=== PATIENT | female | born 1945 | race Caucasian/White ===

== ENCOUNTER → 2017-12-28 13:24 | Outpatient (CLI) | payer MEDICARE, MEDICAID, SELFPAY ==
--- NOTE | 2017-12-28 13:29 | XR_ITS ---
XR DEXA axial skeleton HISTORY: ITS.REASON: OSTEOPENIA ORDERING PHYSICIAN: Ashley Roca MD PATIENT AGE: 72 years COMPARISON: None FINDINGS: The BMD measured at the left femoral neck is 0.676 g/cm squared with a T score of -2.6 . This is considered Osteoporotic according to the World Health Organization criteria. Fracture risk is High. Treatment is advised. L1 L4 density has a T score of -1.9. IMPRESSION: Osteoporosis with high fracture risk. Recommend pharmacologic treatment and follow-up exam in one year
--- NOTE | 2017-12-28 13:39 | CI_ITS ---
Cerebrovascular Exam Indications: 785.9 Bruit. IMPRESSIONS 1. The bilateral vertebral arteries are patent with normal antegrade flow. 2. Study suggests less than 20% stenosis involving the right internal carotid artery and the left internal carotid artery. No change from the study of 17-May-2016. History: Risk factors: Hypertension. Hyperlipidemia. Carotid duplex study. Complete study and Doppler flow study including spectral analysis, color and franks scale imaging. Height: Height: 167.6cm. Height: 66in. Weight: Weight: 89.8kg. Weight: 197.6lb. Body mass index: BMI: 32kg/m^2. Body surface area: BSA: 2.08m^2. Location: Vascular laboratory. Patient status: Outpatient. Tables: Arterial flow: + +--------+--------+ Location V sys V ed + +--------+--------+ Right CCA - proximal 73.1cm/s 25.1cm/s + +--------+--------+ Right CCA - distal 76.2cm/s 21.2cm/s + +--------+--------+ Right ECA 91.9cm/s -------- + +--------+--------+ Right ICA - proximal 51.9cm/s 14.1cm/s + +--------+--------+ Right ICA - mid 115cm/s 27.5cm/s + +--------+--------+ Right ICA - distal 84.9cm/s 29.4cm/s + +--------+--------+ Right vertebral 65.2cm/s -------- + +--------+--------+ Left CCA - proximal 74.6cm/s 24.4cm/s + +--------+--------+ Left CCA - distal 68.4cm/s 21.2cm/s + +--------+--------+ Left ECA 66.8cm/s -------- + +--------+--------+ Left ICA - proximal 55cm/s 15.7cm/s + +--------+--------+ Left ICA - mid 84.9cm/s 25.9cm/s + +--------+--------+ Left ICA - distal 82.5cm/s 29.1cm/s + +--------+--------+ Left vertebral 33.8cm/s -------- + +--------+--------+ Velocity ratios: + + + + + + Right, V sys Right, V ed Left, V sys Left, V ed + + + + + + Max ICA/dist CCA 1.51 1.39 1.24 1.37 + + + + + + (Report amended ) Electronically signed by: Danny Payne [id number]
== END ==
PROVIDERS: Family Provider Family Medicine; PCP Family Medicine; Visit Provider Family Medicine
DX: R09.89 Other specified symptoms and signs involving the circulatory and respiratory systems; M85.89 Other specified disorders of bone density and structure, multiple sites
CPT/HCPCS: 77080; 93880

== ENCOUNTER → 2019-02-05 13:51 | Outpatient (CLI) | payer MEDICARE, MEDICAID, SELFPAY | PROVIDERS: PCP Family Medicine; Visit Provider Family Medicine | DX: I49.9 Cardiac arrhythmia, unspecified (principal) | CPT/HCPCS: 93005; 93225; 93226 ==

== ENCOUNTER → 2019-06-24 15:07 | Outpatient (CLI) | payer MEDICARE, MEDICAID, SELFPAY ==
--- NOTE | 2019-06-24 16:04 | ECG_ITS ---
APPROVED REPORT Exam: Resting ECG HR:77 bpm ECG Measurements Heart Rate 77 AXES LA 144 P 31 QRSd 84 QRS -4 QT 374 T 16 QTc 423 <Conclusion> Sinus rhythm with marked sinus arrhythmia Minimal voltage criteria for LVH, may be normal variant ST abnormality,? lyte effect Electronically signed by : Esequiel Mederos, 06/25/2019 13:50:06
== END ==
PROVIDERS: PCP Family Medicine; Visit Provider Family Medicine
DX: I49.49 Other premature depolarization (principal); I35.1 Nonrheumatic aortic (valve) insufficiency
CPT/HCPCS: 93005; 93306

== ENCOUNTER → 2020-05-10 12:30 | Outpatient (CLI) | payer MEDICARE, MEDICAID, SELFPAY ==
--- NOTE | 2020-05-10 12:50 | XR_ITS ---
PROCEDURE: XR CHEST 2V CLINICAL HISTORY: HX OF PNEUMONIA Follow-up pneumonia COMPARISON: No exams were available for comparison FINDINGS: The cardiomediastinal silhouette and pulmonary vascularity are within normal limits. Patchy infiltrate is present in the left lower lobe and lingula. Increased markings are also present in the right lower lobe and may be due to an area of atelectasis or patchy infiltrate. Upper lobes are clear. No acute bony abnormalities. IMPRESSION: Left lower lobe and lingula pneumonia with mild atelectasis or patchy infiltrate in the right lung base Dictated by: Bakari Hay MD 05/10/2020 14:57 Electronically signed by Bakari Hay MD in [place] 05/10/2020 14:57
== END ==
PROVIDERS: PCP Family Medicine; Visit Provider Family Medicine
DX: Z87.01 Personal history of pneumonia (recurrent) (principal)
CPT/HCPCS: 71046

== ENCOUNTER → 2020-06-09 13:53 | Outpatient (CLI) | payer MEDICARE, MEDICAID, SELFPAY ==
--- NOTE | 2020-06-09 14:02 | XR_ITS ---
PROCEDURE: XR CHEST 2V CLINICAL HISTORY: H/O PNEUMONIA COMPARISON: CR XR CHEST 2V from 05/10/2020 FINDINGS: The cardiomediastinal silhouette and pulmonary vascularity are within normal limits. The lungs are clear without infiltrates, suspicious nodules, or pleural effusions. There are degenerative changes in the thoracic spine with kyphosis IMPRESSION: No change with no acute finding Dictated b Bakari Hay MD 06/09/2020 14:17 Bakari Hay MD in [place] 06/09/2020 14:17
== END ==
PROVIDERS: PCP Family Medicine; Visit Provider Family Medicine
DX: Z87.01 Personal history of pneumonia (recurrent) (principal)
CPT/HCPCS: 71046

== ENCOUNTER → 2022-04-25 14:21 | Outpatient (CLI) | payer MEDICARE, MEDICAID, SELFPAY ==
--- NOTE | 2022-04-25 14:29 | XR_ITS ---
FINAL REPORT CLINICAL HISTORY: COVID TESTING, pt states that she has had a cough, SOA, chest pain in sternal area, and congestion since Sunday. COMPARISON: June 09, 2020 FINDINGS: A single portable view of the chest was obtained. The heart size and pulmonary vascularity are within normal limits. The mediastinum is within normal limits. No acute pulmonary abnormality is identified. The bony thorax is intact. IMPRESSION: No active cardiopulmonary disease. Reviewed, Interpreted and Dictated by Chico Pedraza III, MD Transcribed by Darshana Ramsey Authenticated and [facility]
[2022-04-25 15:06] LABS: Basophils # 0.1 K/mm3 (0-0.2); Basophils % 0.9 % (0.1-2.0); Eosinophils # 0.1 K/mm3 (0.0-0.4); Eosinophils % 1.9 % (0.1-12.0); Hematocrit 34.9 % (37.0-47.0); Hemoglobin 10.3 g/dL (12.2-16.2); Lymphocytes # 1.3 K/mm3 (0.7-4.5); Mean Corpuscular HGB Conc 29.5 g/dL (31.8-35.4); Mean Corpuscular Hemoglobin 22.4 pg (27.0-31.2); Mean Platelet Volume 8.1 fl (7.4-10.4); Monocytes # 0.3 K/mm3 (0.1-1.0); Monocytes % 5.8 % (1.7-9.3); Neutrophils # 3.6 K/mm3 (1.8-7.8); Neutrophils % 67.3 % (37.0-80.0); Platelet Count 421 K/mm3 (142-424); White Blood Count 5.4 K/mm3 (4.8-10.8)
== END ==
PROVIDERS: PCP Family Medicine; Visit Provider Family Medicine
DX: U07.1 COVID-19 (principal)
CPT/HCPCS: 36415; 71045; 85025; C9803; U0003; U0005

== ENCOUNTER 2023-09-26 12:50 | Outpatient (CLI) | payer MEDICARE, MEDICAID, SELFPAY ==
[2023-09-26 13:15] VITALS: BP 156/75; PULSE 63; RESP 18; TEMP 36.8; O2SAT 98
[2023-09-26 13:45] VITALS: BP 121/65; PULSE 63
== END 2023-09-26 14:00 | disposition home or self-care (01) ==
LOC: INF 12:52
PROVIDERS: PCP Family Medicine; Visit Provider Physician Assistant
DX: D50.8 Other iron deficiency anemias (principal)
CPT/HCPCS: 96365; J1439

== ENCOUNTER 2023-10-03 12:46 | Outpatient (CLI) | payer MEDICARE, MEDICAID, SELFPAY ==
[2023-10-03 13:15] VITALS: BP 134/75; PULSE 69; RESP 16; O2SAT 99
[2023-10-03 13:45] VITALS: BP 134/70; PULSE 71; RESP 16
== END 2023-10-03 13:55 | disposition home or self-care (01) ==
LOC: INF 12:47
PROVIDERS: PCP Family Medicine; Visit Provider Physician Assistant
DX: D50.0 Iron deficiency anemia secondary to blood loss (chronic) (principal)
CPT/HCPCS: 96365; J1439

== ENCOUNTER 2023-11-15 15:28 | Outpatient (CLI) | payer MEDICARE, MEDICAID, SELFPAY ==
[2023-11-15 16:18] LABS: Basophils % 0.6 % (0.1-2.0); Eosinophils # 0.1 K/mm3 (0.0-0.4); Eosinophils % 1.1 % (0.1-12.0); Hematocrit 40.2 % (37.0-47.0); Lymphocytes # 1.4 K/mm3 (0.7-4.5); Lymphocytes % 19.6 % (10-50); Mean Corpuscular HGB Conc 32.4 g/dL (31.8-35.4); Mean Corpuscular Hemoglobin 28.3 pg (27.0-31.2); Mean Corpuscular Volume 87.2 fl (81-99); Mean Platelet Volume 8.1 fl (7.4-10.4); Monocytes # 0.4 K/mm3 (0.1-1.0); Neutrophils # 5.2 K/mm3 (1.8-7.8); Neutrophils % 73.7 % (37.0-80.0); Platelet Count 316 K/mm3 (142-424); Red Blood Count 4.61 M/mm3 (4.20-5.40); Red Cell Distribution Width 19.4 % (11.5-17.5)
[2023-11-15 17:25] LABS: Amylase 59 U/L (30-110); Lipase 105 U/L (23-300)
[2023-11-15 17:31] LABS: C-Reactive Protein 34.9 mg/L (0-4)
[2023-11-16 16:22] LABS: Tissue Transglutaminase IgA Ab <2 U/mL (0-3); Tissue Transglutaminase IgG Ab <2 U/mL (0-5)
[2023-11-21 14:17] LABS: Strongyloides IgG Antibody Negative (Negative)
== END 2023-11-15 23:59 ==
LOC: LAB 15:31
PROVIDERS: PCP Family Medicine; Visit Provider Internal Medicine Gastroenterology
DX: R19.7 Diarrhea, unspecified (principal); R79.82 Elevated C-reactive protein (CRP)
CPT/HCPCS: 36415; 82150; 83516; 83690; 85025; 86140; 86682

== ENCOUNTER 2023-11-19 12:56 | Outpatient (CLI) | payer MEDICARE, MEDICAID, SELFPAY ==
[2023-11-21 22:14] LABS: Pancreatic Elastase, Fecal 105 (>200)
[2023-11-22 15:18] LABS: C difficile Toxins AB, EIA Negative (Negative)
[2023-11-22 19:12] LABS: Fats, Neutral Normal (.); Fats, Total Increased (.)
== END 2023-11-19 23:59 ==
LOC: LAB.DROPOF 12:57
PROVIDERS: PCP Family Medicine; Visit Provider Internal Medicine Gastroenterology
DX: R19.7 Diarrhea, unspecified (principal); A04.5 Campylobacter enteritis
CPT/HCPCS: 82656; 82705; 87045; 87177; 87205; 87324

== ENCOUNTER 2024-01-25 08:44 | Outpatient (CLI) | payer MEDICARE, MEDICAID, SELFPAY | END 2024-01-25 23:59 | PROVIDERS: PCP Family Medicine; Visit Provider Physician Assistant | DX: Z78.0 Asymptomatic menopausal state (principal) | CPT/HCPCS: 77080 ==

== ENCOUNTER 2024-04-10 13:27 | Outpatient (CLI) | payer MEDICARE, MEDICAID, SELFPAY ==
[2024-04-10 13:42] VITALS: BP 119/68; PULSE 58; RESP 18; TEMP 36.8; O2SAT 95
[2024-04-10] MEDS: DENOSUMAB 60 MG/ML SYRINGE SQ (13:42)
[2024-04-10 14:12] VITALS: BP 122/69; PULSE 61; RESP 18; TEMP 36.8; O2SAT 97
== END 2024-04-10 14:15 | disposition home or self-care (01) ==
LOC: INF 13:29
PROVIDERS: PCP Family Medicine; Visit Provider Physician Assistant
DX: M81.0 Age-related osteoporosis without current pathological fracture (principal)
CPT/HCPCS: 96372; J0897

== ENCOUNTER 2024-07-24 13:36 | Outpatient (CLI) | payer MEDICARE, MEDICAID, SELFPAY ==
--- NOTE | 2024-07-24 13:38 | MR_ITS ---
FINAL REPORT TECHNIQUE: Multiplanar MR, without and with gadolinium enhancement CLINICAL HISTORY: DIZZINESS FINDINGS: Diffusion sequences show no signal abnormality to indicate acute infarct. There are a few nonspecific white matter signal changes in the left frontal lobe, probably due to mild chronic microvascular disease. No mass, hemorrhage or edema is seen. Ventricles are normal. Major vascular flow voids are intact. There is fluid in the bilateral mastoid air cells, left greater than right which can be seen with mastoiditis. Following contrast administration, no mass or abnormal enhancement is seen. IMPRESSION: No mass or acute infarct. Possible mastoiditis. Reviewed, Interpreted and Dictated by Ashley Saez MD Transcribed by Laura Garrido Authenticated and . [facility]
[2024-07-24] MEDS: SODIUM CHLORIDE 0.9% 10ML SYR (RAD ONLY) 10 ML IV (14:30)
[2024-07-24] MEDS: GADOTERIDOL INJ 20ML SYRINGE 17 ML IV (14:30)
== END 2024-07-24 23:59 | disposition home or self-care (01) ==
LOC: RAD 13:37
PROVIDERS: PCP Physician Assistant; Visit Provider Physician Assistant
DX: R42 Dizziness and giddiness (principal)
CPT/HCPCS: 70553; A9576

== ENCOUNTER 2024-10-13 13:21 | Outpatient (CLI) | payer MEDICARE, MEDICAID, SELFPAY ==
[2024-10-13 13:38] VITALS: BP 143/63; PULSE 58; RESP 16; TEMP 36.3; O2SAT 98
[2024-10-13] MEDS: DENOSUMAB 60 MG/ML SYRINGE SUBCUT (13:38)
== END 2024-10-13 13:50 | disposition home or self-care (01) ==
LOC: INF 13:22
PROVIDERS: PCP Family Medicine; Visit Provider Physician Assistant
DX: M81.0 Age-related osteoporosis without current pathological fracture (principal)
CPT/HCPCS: 96372; J0897

== ENCOUNTER 2025-06-03 13:21 | Outpatient (CLI) | payer MEDICARE, MEDICAID, SELFPAY ==
--- OUTSIDE RECORDS SUMMARY | 2025-01-08 09:30 | XMS_ITS ---
Author Organization Formerly [facility] Address [address] [id number] Care Team Providers Care Final Assembly And Packing Supervisor Name Role Phone Jeronimo Roca Primary Care Provider Allergies Allergen (clinical drug ingredient) Drug/Non Drug Allergy documented on EMR Reaction Allergy Type Onset Date Status amoxicillin Amoxicillin Unknown Drug Allergy Act gumaro diphenhydramine Benadryl Allergy Unknown Drug Allergy Active cephalexin Cephalexin Unknown Drug Allergy Activ e clarithromycin Clarithromycin Unknown Drug Allergy Active Claritin-D 12 Hour Unknown Drug Allergy Active trimethoprim Trimethoprim Unknown Drug Allergy A ctive morphine Morphine rash Drug Allergy Active tetracycline Tetracycline Unknown Drug Allergy A ctive Results Component Value Reference Range Notes P-Comprehensive Metabolic Pa gerardo (CMP) Reviewed date:01/13/2025 04:37:36 PM Interpretation:Na 132, gluc 124 Performing Lab: Notes/Report: Test performed by [facility], [employer] [address] [place] [address] , [address], [place] [address] Chinmay Bush MD, Garbage Worker CLIA: [id number] Sodium 132 135-145 mmol/L Potassium 5.0 3.5-5.3 mmol/L Chloride 97 97-108 mmol/L CO2 24 22-32 mmol/L Glucose 124 65-99 mg/dL BUN 10 8-23 mg/dL Creatinine 0.86 0.50-1.00 mg/dL Calcium 9.2 8.6-10.4 mg/dL eGFR by Creatinine 69 >59 mL/min/1.73m2 Protein 7.0 6.0-8.3 g/dL Albumin 4.4 3.5-5.3 g/dL Alkaline Phosphatase 56 35-121 IU/L ALT (SGPT) 12 <5-47 IU/L AST (SGOT) 27 <5-40 IU/L Bilirubin, Total 0.3 <0.2-1.2 mg/dL A/G Ratio 1.7 1.1-2.5 P-Lipid Panel Reviewed date:01/13/2025 04:37:36 PM Interpretation:chol 243, non-hdl 173, ldl 158 Performing Lab: Notes/Report: Test performed by [facility], [address] , [address], [place] [address] Chinmay Bush MD, Garbage Worker CLIA: [id number] Cholesterol 243 <200 mg/dL Triglycerides 76 <150 mg/dL HDL Cholesterol 70 >39 mg/dL Cholesterol / HDL Ratio 3.47 0.00-4.44 Ratio Non-HDL Cholesterol 173 <130 mg/dL LDL Cholesterol (Calculation) 158 <130 mg/dL LDL Cholesterol Levels* Less than 100 mg/dL Optimal 100 to 129 mg/dL Near Optimal/ Above Optimal 130 to 159 mg/dL Borderline High 160 to 189 mg/dL High 190 mg/dL and above Very High * Categories as recommended by the 2004 ATPIII guidelines LDL/HDL Ratio 2.3 <3.3 Ratio LDL Cholesterol Patient History Test Date: 12/20/2023 LDL Results: 85 Units: mg/dL % Change: - Test Date: 01/08/2025 LDL Results: 158 Units: mg/dL % Change: +85% REASON FOR VISIT ckup & refills, Needs labs Medications Medication SIG (Take, Route, Frequency, Duration) Notes Start Date End Date Status ALPRAZolam 0.5 MG 1 tab(s) orally 3 ti mes a day 01/08/2025 Active Medrol 4 MG as directed orally d aily; Duration: 6 days 01/08/2025 Active Biotin 1000 MCG 1 tablet Orally Once a day; Duration: 30 day(s) Active Zenpep [id number] UNIT 2 capsules with meals and 1 with snacks Orally Active Propranolol HCl 20 MG 1 tab(s) orally on ce a day; Duration: 90 days Active Omeprazole 20 MG 1 cap(s) orally once a day Active Vitamin D3 125 MCG (5000 UT) 1 capsule Orally Once a day; Duration: 90 days Active Lisinopril-hydroCHLOROthiaz arcadio 20-25 MG 1 tab(s) orally once a day; Duration: 90 days 03/28/2023 Active Prolia 60 MG/ML as directed Subcutan eous every 6 months 03/17/2024 Active Cyanocobalamin 1000 MCG/ML 1 mL Injectio n; Duration: 30 day(s) Active Probiotic - as directed Orally Active Problems Problem Type SNOMED Code ICD Code Onset Dates Problem Status W/U Status Risk Notes Problem Arthropathy (449490241) Arthropathy (M12.9) Active confirmed Problem Pure hypercholesterolemia (134117787) Pure hypercholesterolemia (E78.00) Active confirmed Vital Signs Blood pressure systolic 142 mm Hg 01/09/20 25 Blood pressure diastolic 80 mm Hg 025 Heart Rate 60 /min 01/08/2025 Height 64 in 01/08/2025 Weight 188.4 lbs 01/08/2025 BMI 32.34 kg/m2 01/08/2025 Encounters Encounter Location Date Provider Diagnosis [facility] [address] [facility] [address] [place], [place] [id number] 01/08/2025 Jeronimo Roca Essential hypertensi on I10 ; Non-rheumatic mitral regurgitation I34.0 ; Depression with anxiety F41.8 ; Vitamin B12 deficiency E53.8 ; Osteopenia M85.80 ; Effusion, right knee M25.461 ; Arthropathy M12.9 ; Sprain and strain of other specified sites of knee and leg S86.909A ; Pure hypercholesterolemia E78.0 and Hyperlipidemia E78.5 Assessments Encounter Date Diagnosis (ICD Code) Assessment Notes Treatment Notes Treatment Clinical Notes Section Notes 01/08/2025 Essential hypertensi on (ICD-10 - I10) 01/08/2025 Non-rheumatic mitral regurgitation (ICD-10 - I34.0) 01/08/2025 Depression with anxi ety (ICD-10 - F41.8) 01/08/2025 Vitamin B12 deficien cy (ICD-10 - E53.8) 01/08/2025 Osteopenia (ICD-10 - M85.80) 01/08/2025 Effusion, right knee (ICD-10 - M25.461) 01/08/2025 Arthropathy (ICD-10 - M12.9) 01/08/2025 Sprain and strain of other specified sites of knee and leg (ICD-10 - S86.909A) 01/08/2025 Pure hypercholesterolemia (ICD-10 - E78.0) 01/08/2025 Hyperlipidemia (ICD- 10 - E78.5) Plan Of Treatment Medication Medication Name Sig Start Date Stop Date Notes ALPRAZolam 0.5 MG 1 tab(s) orally 3 times a day 01/08/2025 Medrol 4 MG as directed orally d aily; Duration: 6 days 01/08/2025 Next Appt Details Follow Up: 3 Months, Reason: Provider Name:Jeronimo Palafox er, 07/20/2025 01:15:00 PM, [address] [facility] [address] [facility], [address], [place], [place], [id number], Medications Administered Medication Instructions Date of Administration Dosage Notes B-12 01/08/2025 1 mL Progress Notes * JEFFERY LEE:1945 ( 79 yo F)Acc No.[id number]:01/08/2025 Progress Notes Patient: JOEY RIBEIRO Provider: Jeronimo Roca M.D. :1945 A ge:79 Y S ex:Female Date:01/08/2025 Address:[address] [place] [address], [facility], [id number] Subjective: * Chief Complaints: * 1 . Ckup & refills. 2. Needs labs. * HPI: C ardiology: The patient is here for a check up on Hypertension. Pt states she is having pain in the right knee. Pt states she feel on the ice in November and has had pain since that time. Pt states she has had increased fatigue and would like to get a B 12 injection today. Denies : Chest Pain. D enies : Short of Breath. D enies : Dizziness. D enies : Palpitations. * ROS: D ERMATOLOGY: no R grant. n o H malorie. G ASTROENTEROLOGY: no N ausea. n o V omiting. n o D iarrhea.? U ROLOGY: no D ifficulty urinating. n o B lood in urine. * Medical History: H ypertension, Hyperlipidemia, Depression, Osteoarthritis, 12/28/3017 Carotids less than 20% bilateral stenosis, Dental Extractions, 11/2020, COVID 17 Dec 2020, Moderna, Carotids < 39% Stenosis, 12/2020, B 12 Deficiency, Pure hypercholesterolemia. * Surgical History: L T Knee Repair 1998, Tubal Ligation 1977, Cholecystectomy , D&C x 2 , Bariatric surgery 07/13/2008, stress fracture, left foot 02/2009, colonoscopy, diverticulosis, Dr. Bueno 05/25/2008, endoscopy 12/2011, rght foot, bunionectomy 12/2012, Left knee replacment 04/19/3017, EGD and colonoscopy, Dr. Boggs 04/10/3017, all upper teeth pulled 11/2020, EGD and colonoscopy negative, Dr. Sapp 03/01/2022. * Hospitalization/Major Diagno stic Procedure: B [facility] ER- Pneumonia 04/29/2020-05/03/2020. * Family History: F ather: , coronary artery disease, mental illness. M other: , coronary artery disease, diabetes, stroke. S iblings: alive, colon carcinoma. 4 brother(s) , 5 sister(s) . 2 son(s) . . 2 sisters (68) and one brother (59) with colon cancer all alive and well,. * Social History: C URRENT TOBACCO USE S moking Status: Patient does NOT smoke. C affeine: yes, frequency:. Marital Status: . Past smoking status: no. Alcohol: no. * Medications: T aking Zenpep [id number] UNIT Capsule Delayed Release Particles 2 capsules with meals and 1 with snacks Orally , Taking Biotin 1000 MCG Tablet 1 tablet Orally Once a day , Taking Probiotic - Tablet Delayed Release as directed Orally , Taking Cyanocobalamin 1000 MCG/ML Solution 1 mL Injection , Taking Omeprazole 20 MG Capsule Delayed Release 1 cap(s) orally once a day , Taking Propranolol HCl 20 MG Tablet 1 tab(s) orally once a day , Taking Lisinopril-hydroCHLOROthiazide 20-25 MG Tablet 1 tab(s) orally once a day , Taking Prolia 60 MG/ML Solution Prefilled Syringe as directed Subcutaneous every 6 months , Taking Vitamin D3 125 MCG (5000 UT) Capsule 1 capsule Orally Once a day , Taking ALPRAZolam 0.5 MG Tablet 1 tab(s) orally 3 times a day , Discontinued Creon [id number] UNIT Capsule Delayed Release Particles 2 cap(s) Orally 3 times a day up to 8 daily , Medication List reviewed and reconciled with the patient * Allergies: C laritin-D 12 Hour, Tetracycline, Clarithromycin, Cephalexin, Amoxicillin, Benadryl Allergy, Trimethoprim, Morphine: rash. Objective: * Vitals: W t:188.4, Temp:98.5, BP:142/80, HR:60, Nurse:VIPIN, Ht: 64, BMI:32.34. * Examination: G eneral Examination: General Appearance: N AD. H EENT: S clera and conjunctiva clear. O ral cavity: n o lesions, mucosa moist and WNL, no erythema. N marry: s upple, no lymphadenopathy. C hest: n ormal shape and expansion. H eart: R SR, aortic murmur. L ungs: c lear to auscultation. A bdomen: soft and nontender, no organomegaly or masses. N eurologic Exam: I ntact, gait normal. S kin: n ormal, no rash.?Peripheral pulses: n ormal . B ack: mild dorsal kyphosis. E xtremities: trace leg edema, osteoarthritic changes of the right knee with effusion , surgical scar of left knee. Assessment: * Assessment: 1. E ssential hypertension - I10 (Primary) 2 . N on-rheumatic mitral regurgitation - I34.0 3 . D epression with anxiety - F41.8 4 . V itamin B12 deficiency - E53.8 5 . O steopenia - M85.80 6 . E ffusion, right knee - M25.461 7 . A rthropathy - M12.9 8 . S prain and strain of other specified sites of knee and leg - S86.909A 9 . P ure hypercholesterolemia - E78.0 1 0. H yperlipidemia - E78.5 Plan: * Treatment: Value Reference Range A /G Ratio 1.7 1.1-2.5 - * A lbumin 4.4 3.5-5.3 - g/dL * A lkaline Phosphatase 56 35-121 - IU/L * A LT (SGPT) 12 <5-47 - IU/L * A ST (SGOT) 27 <5-40 - IU/L * B ilirubin, Total 0.3 <0.2-1.2 - mg/dL * B UN 10 8-23 - mg/dL * C alcium 9.2 8.6-10.4 - mg/dL * C hloride 97 97-108 - mmol/L * C O2 24 22-32 - mmol/L * C reatinine 0.86 0.50-1.00 - mg/dL * G lucose 124 H 65-99 - mg/dL * P otassium 5.0 3.5-5.3 - mmol/L * S odium 132 L 135-145 - mmol/L * P rotein 7.0 6.0-8.3 - g/dL * e GFR by Creatinine 69 >59 - mL/min/1.73m2 * Gabriela Barrientos 01/13/2025 04: 37:26 PM > see phone encounter 2.?Depression with anxiety? Refill ALPRAZolam Tablet, 0.5 MG, 1 tab(s), orally, 3 times a day, 90, Refills 3.??3.?Hyperlipidemia?LAB: P-Lipid Panel (Collection Date & Time - 01/08/2025 01:40 PM)?chol 243, non-hdl 173, ldl 158* Value Reference Range C holesterol / HDL Ratio 3.47 0.00-4.44 - Ratio * C holesterol 243 H <200 - mg/dL * H DL Cholesterol 70 >39 - mg/dL * L DL Cholesterol (Calculation) 158 H <130 - mg/d L * L DL/HDL Ratio 2.3 <3.3 - Ratio * N on-HDL Cholesterol 173 H <130 - mg/dL * T riglycerides 76 <150 - mg/dL * Gabriela Barrientos 01/13/2025 04: 37:26 PM > see phone encounter 4.?Others? Start Medrol Tablet Therapy Pack, 4 MG, as directed, orally, daily, 6 days, 1, Refills 0.? * Therapeutic Injections: B-12 : 1 mL (Route: Intramuscular) given by Sandee Ramsey on left deltoid (Vitamin B12 deficiency) * Procedure Codes: G 2211 Complex e/m visit add on, J3420 B-12, 30792 ADMINISTRATION OF INJECTION, 3077F SYST BP = 140 MM HG6 IT, 3079F DIAST BP 80-89 MM HG * Follow Up: 3 Months * Images: Billing Information: * Visit Code: 32159 Office Visit, Est Pt., Level 4. Modifiers: 25 * Procedure Codes: G2211 Complex e/m visit add on. J3420 B-12. 83511 ADMINISTRATION OF INJECTION. 3077F SYST BP = 140 MM HG6 IT. 3079F DIAST BP 80-89 MM HG. * Electronic signature of Jeronimo Roca MD on 06/03/2025 at 01:27 PM EDT Sign off status: Pending * Provider: Jeronimo Roca M.D. Date: 0 01/08/2025 Generated for Jessicai ng/Amber/eTransmitting on: 0 06/03/2025 01:27 PM EDT History and Physical Notes * HPI (History of Present Illness) Category Sub-Category Detail Notes Category Not es Cardiology Short of Breath Chest Pain Palpitations Dizziness Examination Category Sub-Category Detail Notes Category Not es General Examination HEENT: Sclera and conjunctiv a clear Heart: RSR, aortic murmur Lungs: clear to auscultatio n Abdomen: soft and nontender, no organomegaly or masses Extremities: trace leg edema, ost eoarthritic changes of the right knee with effusion , surgical scar of left knee General Appearance: NAD Skin: normal, no rash Neurologic Exam: Intact, gait normal Neck: supple, no lymphaden opathy Oral cavity: no lesions, mucosa m oist and WNL, no erythema Peripheral pulses: normal Back: mild dorsal kyphosis Chest: normal shape and exp ansion
--- OUTSIDE RECORDS SUMMARY | 2025-03-11 09:15 | XMS_ITS ---
Author Organization [facility] Address [address] [facility] [address] [place] [id number] Care Team Providers Care Cardroom Drawing Runner Name Role Phone Jeronimo Roca Primary Care Provider Jennifer Turcios Unavailable [phone] Allergies Allergen (clinical drug ingredient) Drug/Non Drug [...] tetracycline Tetracycline Unknown Drug Allergy A ctive REASON FOR VISIT Back and Side Pain Medications Medication SIG (Take, Route, Frequency, Duration) Notes Start Date End Date Status Zenpep [id number] UNIT 2 capsules with meals and 1 with snacks Orally Active Omeprazole 20 MG Take 1 capsule by mo ut once daily; Duration: 90 Active ALPRAZolam 0.5 MG 1 tab(s) orally 3 ti mes a day 01/08/2025 Active Medrol 4 MG as directed Orally 03/11/2025 Active Prolia 60 MG/ML as directed Subcutan eous every 6 months 03/17/2024 Active Lisinopril-hydroCHLOROthiaz arcadio 20-25 MG 1 tab(s) orally once a day; Duration: 90 days 03/28/2023 Active Propranolol HCl 20 MG 1 tab(s) orally on ce a day; Duration: 90 days Active Cyanocobalamin 1000 MCG/ML 1 mL Injectio n; Duration: 30 day(s) Active Vitamin D3 125 MCG (5000 UT) 1 capsule Orally Once a day; Duration: 90 days Active Probiotic - as directed Orally Active Biotin 1000 MCG 1 tablet Orally Once a day; Duration: 30 day(s) Active Problems Problem Type SNOMED Code ICD Code Onset Dates Problem Status W/U Status Risk Notes Problem BMI 30+ - obesity (510111251) BMI 32.0-32.9,a dult (Z68.32) Active confirmed Vital Signs Blood pressure systolic 134 mm Hg 03/11/20 25 Blood pressure diastolic 76 mm Hg 025 Heart Rate 70 /min 03/11/2025 Height 64 in 03/11/2025 Weight 187.2 lbs 03/11/2025 BMI 32.13 kg/m2 03/11/2025 Encounters Encounter Location Date Provider Diagnosis [facility] [address] [place] [address] [address] [place], [place] [id number] 03/11/2025 Jennifer Crowdy Muscle spasm of back M62.830 ; B12 deficiency E53.8 ; Anxiety F41.9 ; Essential hypertension I10 and BMI 32.0-32.9,adult Z68.32 Assessments Encounter Date Diagnosis (ICD Code) Assessment Notes Treatment Notes Treatment Clinical Notes Section Notes 03/11/2025 Muscle spasm of back (ICD-10 - M62.830) 03/11/2025 B12 deficiency (ICD-10 - E53.8) 03/11/2025 Anxiety (ICD-10 - F41.9) 03/11/2025 Essential hypertension (ICD-10 - I10) 03/11/2025 BMI 32.0-32.9,adult (ICD-10 - Z68.32) Plan Of Treatment Medication Medication Name Sig Start Date Stop Date Notes Medrol 4 MG as directed Orally 03/11/2025 Next Appt Details Follow Up: prn, Reason: Provider Name:Jeronimo Palafox er, 07/20/2025 01:15:00 PM, [address] [facility] [address] [facility], [address], [place], [phone], Medications Administered Medication Instructions Date of Administration Dosage Notes B-12 03/11/2025 1 mL Progress Notes * ECTOR LEEOB:1945 ( 79 yo F)Acc No.[id number]:03/11/2025 Progress Notes Patient: A SKIN, JOEY Provider: LESLY Gordon :1945 A ge:79 Y S ex:Female Date:03/11/2025 Address:[address] [place] [address] [phone] Pcp:Jeronimo Roca Subjective: * Chief Complaints: * 1 . Back and Side Pain. * HPI: M id Back: 79 year old female presents with c/o Middle Back Pain P t presents today with c/o pain in the middle of the back that spreads around to the right side. Pt sts that she has is due to have her right knee replaced but does not know if her compensating for the knee is causing the pain in the back. Pt sts that she has used Voltaren, and it has helped some and ice has helped some. Pt sts that she is just unable to relax and sleep on the right side. She does remember trying to pull weeds before this all started.. c/o Right Side. * ROS: D ERMATOLOGY: no R grant. [...] 39% Stenosis, 12/2020, B 12 Deficiency, Pure hypercholesterolemia, Pure hypercholesterolemia. * Surgical History: L T [...] 03/01/2022. * Hospitalization/Major Diagno stic Procedure: B [facility] ER- Pneumonia 04/29/2020-05/03/2020. * Family [...] Alcohol: no. * Medications: T aking Zenpep [id number] UNIT Capsule Delayed Release Particles 2 capsules with meals and 1 with snacks Orally , Taking Biotin 1000 MCG Tablet 1 tablet Orally Once a day , Taking Probiotic - Tablet Delayed Release as directed Orally , Taking Cyanocobalamin 1000 MCG/ML Solution 1 mL Injection , Taking Propranolol HCl 20 MG Tablet [...] tab(s) orally 3 times a day , Taking Omeprazole 20 MG Capsule Delayed Release Take 1 capsule by mouth once daily , Discontinued Medrol 4 MG Tablet Therapy Pack as directed orally daily , Medication List reviewed and reconciled with the patient * Allergies: C laritin-D 12 Hour, Tetracycline, Clarithromycin, Cephalexin, Amoxicillin, Benadryl Allergy, Trimethoprim, Morphine: rash. Objective: * Vitals: W t: 187.2, Temp: 98.7, BP: 134/76, HR: 70, Nurse: CHRISTAL, Ht: 64, BMI:32.13. * Examination: G eneral Examination: General Appearance: N AD. C hest: n ormal shape and expansion. H eart: R SR. L ungs: c lear to auscultation. B ack: n o vertebral tenderness, there is spasm along the right thoracic paraspinal muscles, pain with twisting, flexion, and extension. Assessment: * Assessment: 1. M uscle spasm of back - M62.830 (Primary) 2 . B 12 deficiency - E53.8? 3. A nxiety - F41.9 4 . E ssential hypertension - I10 ? 5 . B FL 32.0-32.9,adult - Z68.32 Plan: * Treatment: * Therapeutic Injections: B-12 : 1 mL (Route: Intramuscular) given by Gabriela Barrientos on right gluteus (B12 deficiency) * Procedure Codes: G 2211 Complex e/m visit add on, J3420 B-12, 78866 ADMINISTRATION OF INJECTION, 3075F SYST BP GE 130 - 139MM HG, 3078F DIAST BP < 80 MM HG * Follow Up: p rn * Images: Billing Information: * Visit Code: 96494 Office Visit, Est Pt., Level 3. Modifiers: 25 * Procedure Codes: G2211 Complex e/m visit add on. J3420 B-12. 50992 ADMINISTRATION OF INJECTION. 3075F SYST BP GE 130 - 139MM HG. 3078F DIAST BP < 80 MM HG. * Electronic signature of LESLY Shirley on 06/03/2025 at 01:29 PM EDT Sign off status: Pending * Provider: LESLY Gordon Date: 0 03/11/2025 Generated for Ben osorio/Amber/Albertoitting on: 0 06/03/2025 01:29 PM EDT History and Physical Notes * HPI (History of Present Illness) Category Sub-Category Detail Notes Category Not es Mid Back Middle Back Pain Pt presents tod ay with c/o pain in the middle of the back that spreads around to the right side. Pt sts that she has is due to have her right knee replaced but does not know if her compensating for the knee is causing the pain in the back. Pt sts that she has used Voltaren, and it has helped some and ice has helped some. Pt sts that she is just unable to relax and sleep on the right side. She does remember trying to pull weeds before this all started. Right Side Examination Category Sub-Category Detail Notes Category Not es General Examination Heart: RSR Lungs: clear to auscultatio n General Appearance: NAD Back: no vertebral tendern ess, there is spasm along the right thoracic paraspinal muscles, pain with twisting, flexion, and extension Chest: normal shape and exp ansion
--- OUTSIDE RECORDS SUMMARY | 2025-04-13 13:20 | XMS_ITS | Encounter Summary ---
Author Organization [facility] Address [address] [place] [address] Care Team Providers Care Inspector Production Plastic Parts Name Role Phone Ronald Roca MD Primary Care Provider [phone] Reason for Visit * Reason Comments Pre-op Visit Encounter Details Date Type Department Care Team (Latest Contact Info) Description 04/13/2025 1:20 PM EDT Office Visit Medical Office Building Surgery [facility] [address], [address] [place] [address] Jens Carbone MD [address] [place] [address] Primary osteoarthritis of right knee (Primary Dx); Right knee pain, unspecified chronicity Social History Tobacco Use Types Packs/Day Years Used Date Smoking Tobacco: Never Smokeless Tobacco: Never Tobacco Cessation:Counseling Given: Not Answered Alcohol Use Standard Drinks/Week Comments No 0 (1 standard drink = 0.6 oz pur e alcohol) Comments No Sex and Gender Information Value Date Recorded Sex Assigned at Not on file Legal Sex Female 8:34 PM EDT Gender Identity Not on file Sexual Orientation Not on file documented as of this encounter Last Filed Vital Signs Vital Sign Reading Time Taken Comments Blood Pressure 129/83 04/13/2025 1:20 PM EDT Pulse 70 04/13/2025 1:20 PM EDT Temperature - - Respiratory Rate - - Oxygen Saturation 95% 04/13/2025 1:20 PM EDT Inhaled Oxygen Concentration - - Weight 83.5 kg (184 lb) 04/13/2025 1:20 PM EDT Height 165.1 cm (5' 5 ) 04/13/2025 1:20 PM EDT Body Mass Index 30.62 04/13/2025 1:20 PM EDT documented in this encounter Miscellaneous Notes * Progress Notes - Jens Carbone MD - 04/13/2025 1:20 PM EDT Subjective: Radha Lee is a 79 y.o. female who comes in today for preop evaluation for right knee arthroplasty. She had on the schedule for a week from tomorrow. She has severe arthritis and had severe arthritis for some time. Injection of steroid had been working for years but now are not helping her. She ishaving significant difficulty getting around the house. She had successful total knee replacement on her left side previously. HPI Review of Systems Tobacco Use History[1] Allergies[2] Objective: BMI is Body mass index is 30.62 kg/m??. Varus alignment right knee. Left knee has full extension and flexion 120??. Right knee opens 5?? tovalgus stress testing at 30?? flexion. Bilateral hip motion is 10?? internal rotation and 40?? external rotation. My independent interpretation of radiographic testing shows: tricompartmental arthritis with more joint space narrowing medially Previous imaging shows: tricompartmental arthritis with more joint space narrowing medially Assessment and plan: Primary osteoarthritis of right knee No orders of the defined types were placed in this encounter. I think the patient would benefit from total knee arthroplasty. She understands all the risks and she has had surgery previously. This problem is a chronic problem with some progression. Major procedure risk factors were discussed: (all pertinent risks, benefits, and alternatives to this procedure were discussed. The risks include but are not limited to loss of life, loss of limb, need for further surgery, nonunion, malunion, infection, nerve and/or vessel injury, limb length discrepancy, blood clots, dislocation. The patient understands these risks as we discussed.) and decisionwas made for procedure. [1] Social History Tobacco Use Smoking Status Never Smokeless Tobacco Never [2] Allergies Allergen Reactions Cephalexin Itching, Hives, Unknown - Patient states they do not know rxn details and Rash Morphine Itching and Unknown - Patient states they do not know rxn details Phenobarbital Itching, Hives and Unknown - Patient states they do not know rxn details Tetracyclines & Related Hives Amoxicillin Other - please document in the comment field Clarithromycin Other - please document in the comment field Diphenhydramine Rash Loratadine-Pseudoephedrine Er Unknown - Patient states they do not know rxn details Trimethoprim Unknown - Patient states they do not know rxn details * Progress Notes - Angelique Ashton RN - 04/13/2025 1:20 PM EDT Patient was provided with Total Joint Education Packet. Patient was educated using information provided in packet. Patient instructed to schedule PT appointment 3-5 days after surgery date and to schedule prior to having procedure. All questions answered. Contact information for Joint Replacement Nu rse given for patient to call should any questions arise before or after surgery. Pt then met with human resources services specialist to arrange surgery and Joint Replacement Class date. Reviewed patients allergies, medications, medical and surgical history, and pharmacy verified. Instructed patient to stop NSAIDS, ASA, and OTC vitamins & supplements 1 week prior to procedure. Instructed to ensure any hormone replacement, if taken, is stopped 1 month prior to surgery. Also any dermatological procedures or dental work need to be performed 1 month prior to procedure. Patient instructed to review educational material and write down any questions or concerns in the notes section and bring the packet to the hospital and all appointments. Patient stated understanding. Patient would like to stay overnight and she requested HH PT or rehab. I told her these would be taken care of by PT and case management once she has had her surgery and is in the hospital. I told her I would document her preferences. documented in this encounter Plan of Treatment Upcoming Encounters Date Type Department Care Team ([facility] st Contact Info) Description 06/08/2025 3:20 PM EDT Office Visit Medical Office Building Surgery Spine & Joint [address] [facility], [address] [place] [address] Jens Carbone MD [address] [facility] [address] [place] [address] 08/24/2025 3:00 PM EDT Ovarian Cancer Screening [facility] [address] [place] [address] documented as of this encounter Goals Goal Patient Goal Type Associated Problems Recent Progress Patient-Stated? Author Autogenerat ed Goal Care Plan Autogenerated Problem No Eboni Pyle documented as of this encounter Results * New Patient: XR Knee (Lateral / [place] / Tunnel / AP Standing with Marker) (04/13/2025 2:51 PM EDT) Anatomical Region Laterality Modality Lower Extremities, Knee Right Digital Radiography Impressions 04/13/2025 4:18 PM EDT No acute osseous finding. Severe osteophytosis of the knee, greatest in the medial compartment, progressed from the prior exam. CRITICAL RESULT: No. COMMUNICATION: Per this written report. Drafted by Zeinab Mota MD on 04/13/2025 4:17 PM Final report signed by Zeinab Mota MD on 04/13/2025 4:18 PM Narrative 04/13/2025 4:18 PM EDT CLINICAL INDICATION: knee pain TECHNIQUE: XR KNEE RIGHT 4+ VIEWS COMPARISON: Radiographs from 11/08/2020 FINDINGS: Severe medial compartment, moderate patellofemoral, and mild to moderate lateral compartment narrowing. Tricompartmental osteophytosis. No significant suprapatellar effusion. No severe soft tissue swelling. No acute fracture or dislocation. Procedure Note Zeinab Mota MD - 04/13/2025 CLINICAL INDICATION: knee pain TECHNIQUE: XR KNEE RIGHT 4+ VIEWS COMPARISON: Radiographs from 11/08/2020 FINDINGS: Severe medial compartment, moderate patellofemoral, and mild to moderatelateral compartment narrowing. Tricompartmental osteophytosis. Nosignificant suprapatellar effusion. No severe soft tissue swelling. Noacute fracture or dislocation. IMPRESSION: No acute osseous finding. Severe osteophytosis of the knee, greatest inthe medial compartment, progressed from the prior exam. CRITICAL RESULT: No. COMMUNICATION: Per this written report. Drafted by Zeinab Mota MD on 04/13/2025 4:17 PM Final report signed by Zeinab Mota MD on 04/13/2025 4:18 PM Jens Carbone MD IMG XR PROCEDURES Final Resul t documented in this encounter Visit Diagnoses Diagnosis Primary osteoarthritis of right knee- Primary Right knee pain, unspecified chronicity Right knee pain, unspecified chronicity documented in this encounter Additional Health Concerns Active Problems Noted Date Diagnosed Date Autogenerated Problem 04/08/2025 Assessment Noted Time A fall risk assessment has been complete d for the patient 04/13/2025 1:20 PM EDT A Body Mass Index follow-up plan has been documented for the patient 04/14/2025 6:50 AM EDT documented as of this encounter Care Teams Inspector Production Plastic Parts Relationship Specialty Start Date End Date Ronald Roca MD [address] [place] [address] PCP - General 03/11/21 documented as of this encounter
--- OUTSIDE RECORDS SUMMARY | 2025-04-13 14:27 | XMS_ITS | Encounter Summary ---
Author Organization [facility] Address [address] [place] [address] Care Team Providers Care Assistant Chief Train Dispatcher Name Role Phone Ronald Roca MD Primary Care Provider [phone] Encounter Details Date Type Department Care Team (Latest Contact Info) Description 04/13/2025 2:27 PM EDT - 04/13/2025 11:59 PM EDT Hospital Encounter Medical Office Building Radiology [address] [place] [address] Right knee pain, unspecified chronicity Discharge Disposition: Home or Self Care Social History Tobacco Use Types Packs/Day Years Used Date Smoking Tobacco: Never Smokeless Tobacco: Never Alcohol Use Standard Drinks/Week Comments No 0 (1 standard drink = 0.6 oz pur e alcohol) Comments No Sex and Gender Information Value Date Recorded Sex Assigned at Not on file Legal Sex Female 8:34 PM EDT Gender Identity Not on file Sexual Orientation Not on file documented as of this encounter Medications at Time of Discharge ALPRAZolam (Xanax) 0.5 MG tablet Take 1 tablet by mouth 3 times a day. 01/09/2017 cholecalciferol (Vitamin D-3) 125 MCG (5000 UT) capsule Take 1 capsule by mouth. denosumab (Prolia) 60 MG/ML injection as directed Subcutaneous every 6 months 03/17/2024 diclofenac (Voltaren) 1 % topical gelIndications:A rthritis of right knee Place on the skin 2 (two) times a day. 100 g 2 10/03/2021 lisinopril-hydro CHLOROthiazide 20-12.5 MG tablet Take 1 tablet by mouth daily. 05/31/2021 naloxone (Narcan) 4 mg/0.1 mL nasal spray 1. Give 1 spray in nostril for no/slow breathing or cannot wake after opioid use 2. Call 911 3. Repeat in other nostril if symptoms continue 1 each 04/23/2025 nutritional drink (Boost Plus) liquid liquid Twice daily Disp 1 case 237 mL 04/23/2025 omeprazole (PriLOSEC) [address] capsule Take 1 capsule by mouth daily. 12/26/2021 Probiotic Product (acidophilus probiotic blend) capsule Take 1 capsule by mouth daily. Roflumilast 0.3 % cream Apply 1 Dose topically 1 (one) time each day. 07/22/2024 aspirin 81 MG EC tablet Take 1 tablet by mouth 2 times a day for 28 days. For 4 weeks post-op for blood clot prevention 56 tablet 04/23/2025 5 docusate sodium (Colace) 250 MG capsule Take 1 capsule by mouth 2 times a day. 60 capsule 04/23/2025 5 meloxicam (Mobic) 15 MG tablet Take 1 tablet by mouth daily. For 4 weeks post-op 30 tablet 04/23/2025 5 acetaminophen (Tylenol Extra Strength) 500 MG tablet Take 2 tablets by mouth every 8 hours. 100 tablet 04/23/2025 5 Creon [id number] units capsule delayed-release particles capsule Patient is taking 36,000 Units 04/18/2024 5 cyanocobalamin (Vitamin B-12) 1000 MCG/ML injection 1 each. 5 ergocalciferol 1.25 MG (32955 UT) capsule TAKE 1 CAPSULE BY MOUTH TWICE A WEEK 05/17/2021 5 furosemide (Lasix) 20 MG tablet Take 20 mg by mouth. 5 hydrocortisone 1 % cream Apply topically. 04/15/20 2 5 meloxicam (Mobic) 15 MG tablet Take 1 tablet (15 mg) by mouth daily. 30 tablet 1 01/19/2025 5 methocarbamol (Robaxin) 500 MG tablet Take 1 tablet by mouth 3 times a day as needed for muscle spasms. 30 tablet 04/23/2025 5 metoprolol succinate XL (Toprol-XL) 25 MG 24 hr tablet Take 1 tablet (25 mg) by mouth 1 (one) time each day. 10/04/2021 5 oxyCODONE (Roxicodone) 5 MG immediate release tablet Take 1 tablet by mouth every 6 hours as needed for moderate pain or severe pain. 50 tablet 04/21/2025 5 propranolol (Inderal) 20 MG tablet Take 1 tablet (20 mg) by mouth. 06/03/2023 5 raloxifene (Evista) 60 MG tablet Take 1 tablet (60 mg) by mouth 1 (one) time each day. 5 simvastatin (Zocor) 20 MG tablet TAKE 1 TABLET EVERY OTHER DAY 02/14/2015 5 traMADol (Ultram) 50 MG tablet Take 1 or 2 tablets every 4-6 hours as needed for moderate pain 56 tablet 04/23/2025 5 documented as of this encounter Plan of Treatment Upcoming Encounters Date Type Department Care Team (Late st Contact Info) Description 06/08/2025 3:20 PM EDT Office Visit Medical Office Building Surgery Sp[facility] [address] [facility], [address] [place] [address] Jens Carbone MD [address] [facility] [address] [place] [address] 08/24/2025 3:00 PM EDT Ovarian Cancer Screening [facility] Gynecology [address] [facility]rd [place] [address] documented as of this encounter Goals Goal Patient Goal Type Associated Problems Recent Progress Patient-Stated? Author Autogenerat ed Goal Care Plan Autogenerated Problem No Eboni Pyle documented as of this encounter Procedures Procedure Name Priority Date/Time Associated Diagnosis Comments XR KNEE RIGHT 4+ VIEWS Routine 04/13/2025 2:51 PM EDT Right knee pain, unspecified chronicity documented in this encounter Results * New Patient: XR Knee (Lateral / [place] / Tunnel / AP Standing with Marker) [...] documented in this encounter Visit Diagnoses Diagnosis Right knee pain, unspecified chronicity documented in this encounter Additional Health Concerns Active Problems Noted Date Diagnosed Date Autogenerated Problem 04/08/2025 Assessment Noted Time A fall risk assessment has been complete d for the patient 04/13/2025 1:20 PM EDT A Body Mass Index follow-up plan has been documented for the patient 04/14/2025 6:50 AM EDT documented as of this encounter Care Teams Assistant Chief Train Dispatcher Relationship Specialty Start Date End Date Ronald Roca MD [address] [place] [address] PCP - General 03/11/21 documented as of this encounter
--- OUTSIDE RECORDS SUMMARY | 2025-04-15 13:15 | XMS_ITS | Encounter Summary ---
Author Organization [facility] Address [address] [place] [address] Care Team Providers Care Peoplesoft Business Analyst Name Role Phone Ronald Roca MD Primary Care Provider [phone] Encounter Details Date Type Department Care Team (Late st Contact Info) Description 04/15/2025 1:15 PM EDT Pre-Admission Testing [facility] An[facility] [address] [place] [address] Anesthesia Record Procedure Summary Procedure Name Responsible Anesthesiologist Anesthesia Start Time Anesthesia Stop Time ARTHROPLASTY, KNEE, TOTAL (Right: Knee) Luis Corbett, FLORES, DNP 04/21/25 1156 04/21/25 1341 Events Date Time Event Comment 04/21/2025 1103 1156 An Start The patient was reevaluated immediately before sedation and remains eligible for anesthesia plan. 1158 In Room 1158 An Start Data 1202 An Induction The patient was reevaluated immediately before moderate or deep sedation use and before anesthesia induction. 1206 Anesthesia Ready 1221 Proc Start 1331 Proc Fin 1333 an stop data 1335 Out of Room 1341 Handoff to Receiving I compl eted my handoff to the receiving clinician during which we: 1. Identified the patient 2. Identified the responsible provider 3. Reviewed the pertinent medical history 4. Discussed the surgical course 5. Reviewed intra-op anesthesia management and issues during anesthesia 6. Set expectations for post-procedure period 7. Allowed opportunity for questions and acknowledgement of understanding. 1341 An Stop Meds * Agents No agents on file. * Blood No blood administrations on file. Lines, Drains, and Airways Type Details Placement Removal Wound 04/21/25; 1225; N; Y es; Surgical; Knee; Anterior, Right 04/21/25 1225 by Leandro Smith, RN Peripheral IV Placement Date: 03/30 02/20; Placement Time: 1107; Catheter Size: 20 G; Orientation: Posterior, Right; Location: Forearm; Removal Date: 04/23/25; Removal Time: 1142 04/21/25 1107 by Elva Fish RN 04/23/25 1142 by Sherron Marin RN documented in this encounter Social History Tobacco Use Types Packs/Day Years Used Date Smoking Tobacco: Never Smokeless Tobacco: Never Alcohol Use Standard Drinks/Week Comments Never 0 (1 standard drink = 0.6 oz pur e alcohol) Comments No Sex and Gender Information Value Date Recorded Sex Assigned at Not on file Legal Sex Female 8:34 PM EDT Gender Identity Not on file Sexual Orientation Not on file documented as of this encounter Miscellaneous Notes * PAT Evaluation Note - Noy Weeks PA - 04/15/2025 1:15 PM EDT Images from the original note were not included. OH Lee is a 79 y.o. female who presents with Pre-op Diagnosis * Primary osteoarthritis of right knee [M17.11] now scheduled for ARTHROPLASTY, KNEE, TOTAL (Right). Date scheduled is 04/21/2025. PMH:: HTN, TIA, HLD, aortic regurgitation, tricuspid regurg, mild PHTN RVSP = 47 mmHg, anxiety, PACs/PVCs, essential tremor, psoriasis, pancreatic insufficiency, GERD, and iron def anemia. Past Medical History[1] Family History[2] Social History[3] SURGICAL HISTORY: Surgical History[4] Allergies[5] MEDICATIONS: Current Medications[6] ROS Anesthesia: Date of last anesthetic: [facility] knee replacement No GA issues. history of previous anesthesia. Does not have a history of anesthetic complications, obstructive sleep apnea and PONV. Cardiovascular: Does not have angina, CAD, CHF, dyspnea, dysrhythmias, orthopnea, past NE, PVD, syncope or valvularheart disease. Cardio additional comments: OSH Card note 04/2024 (CE) + murmur + HTN - well controlled + HLD - peripheral edema + mild aortic valve stenosis + moderate tricuspid valve regurgitation ECHO 07/21/24 - EF 60-65% RVSP = 47 mmHg grade II diastolic dysfunction + PAD December 2020 - BICA < 40% on CUS + pulmonary HTN Can only do stairs with assistance 2/2 knee pain for several years. Cardiac clearance in media - okay to proceed - moderate risk.. Respiratory: Negative respiratory ROS. Patient has no dyspnea.Has not had an upper respiratory infection in last30 days. HEENT: Does not have difficulty swallowing, chipped teeth or loose teeth.Does not have temporomandibular joint syndrome. HEENT additional comments: + upper dentures + has 8 bottom teeth + hearing loss. Neurological: Does not have headaches. Did not have a cerebrovascular accident. Neuro additional comments: + remote hx of seizures after childbirth - not on meds, no seizures since. + TIA 2022 Musculoskeletal: Does not have cervical spine limited mobility. Musc/Skel/Integ additional comments: + Primary osteoarthritis of right knee S/p left hip replacement + chronic hip / back pain + psoriasis Gastrointestinal: Does not have GI malignancy, hernia or pancreatitis. Does not have cirrhosis or hepatitis. GI/ additional comments: + GERD - well controlled + hx of weight loss surgery ~ 10 years ago + PUD + pancreatic insufficiency + 26lb weight loss since taking Zenpep ~ years Genitourinary: Negative ROS. Hematological/Lymphatic: History of no DVT. History of no pulmonary embolism. no history of chemotherapy no history of radiation Does not have MRSA or tuberculosis. Hem/Lymph ROS additional comments: + hx of iron def anemia s/p iron infusion 1.5 years ago Endocrine/Metabolic: Negative endocrine ROS. Lab Results Component Value Date WBC 5.77 04/13/2025 HGB 13.6 04/13/2025 HCT 42.6 04/13/2025 MCV 91 04/13/2025 PLT 328 04/13/2025 Lab Results Component Value Date GLUCOSE 108 (H) 04/13/2025 BUN 8 04/13/2025 CREATININE 0.86 04/13/2025 BCR 9 04/13/2025 NA 136 04/13/2025 K 3.7 04/13/2025 CL 97 04/13/2025 CO2 26 04/13/2025 CA 9.0 04/20/2017 ALBUMIN 4.5 04/13/2025 BILITOT 0.2 05/01/2020 No results found for: HGBA1C No results found for: INR , PROTIME Visit Vitals OB Status Postmenopausal Smoking Status Never 04/13/2025 1:20 PM Vitals Systolic 129 Diastolic 83 Heart Rate 70 Height (cm) 165.1 cm Weight (kg) 83.462 kg BMI 30.62 kg/m2 BSA (m2) 1.96 m2 Visit Report Report Cardiac clearance (media) OSH ECHO 07/21/24 Conclusions Left ventricular function is normal with an estimated ejection fraction of 60-65%. Left ventricular segmental wall motion is normal. There is no increased left ventricular wall thickness. The left ventricular diastolic function is consistent with grade II diastolic dysfunction (elevated left atrial pressure). Left ventricular chamber dimension is normal. Left atrial chamber dimension is mildly enlarged. Right ventricular systolic function is normal. Estimated pulmonary artery systolic pressure is 47 mmHg. There is mild aortic valve stenosis with a peak velocity of 227 cm/s, mean gradient of 11 mmHg, and aortic valve area of 1.78 cm2. There is moderate tricuspid valve regurgitation. OSH Holter 2021 Normal sinus rhythm. Occasional Premature Supraventricular Complexes (PACs/PJCs) and Premature Ventricular Complexes (PVCs). OSH EKG 06/23/24 (CE) HR-65 Sinus rhythm with occasional ventricular premature complexes Physical Exam Anesthesia Plan ASA 3 Anesthesia technique(s) discussed with the patient/family: other Comment: PA-C phone screen Choice anesthesia LESLY Ayala [1] Past Medical History: Diagnosis Date Anxiety disorder, unspecified Anxiety Hyperlipidemia Hypertension Personal history of other diseases of the digestive system History of esophageal reflux Personal history of other endocrine, nutritional and metabolic disease History of hyperlipidemia [2] Family History Problem Relation Name Age of Onset Cardiac disorder Other Stroke Other Diabetes Other Hypertension Other Other cancer Other Heart attack Other Anesthesia problems Neg Hx Malig Hyperthermia Neg Hx [3] Social History Tobacco Use Smoking status: Never Smokeless tobacco: Never Vaping Use Vaping status: Never Used Substance Use Topics Alcohol use: Never Drug use: Never [4] Past Surgical History: Procedure Laterality Date CHOLECYSTECTOMY N/A Cholecystotomy from [employer] LAPAROSCOPIC GASTRIC BANDING N/A Laparosc Gastric Restrictive Proc By Adjustable Gastric Band from [employer] TOTAL KNEE ARTHROPLASTY Left TUBAL LIGATION N/A Tubal Ligation from [employer] [5] Allergies Allergen Reactions Cephalexin Itching, Hives, Unknown [...] states they do not know rxn details [6] Current Outpatient Medications: ALPRAZolam, Take 1 tablet by mouth 3 times a day. cholecalciferol, Take 1 capsule by mouth. lisinopril-hydroCHLOROthiazide, Take 1 tablet by mouth daily. omeprazole, Take 1 capsule by mouth daily. pancrelipase (Nas-Ihqk-Witw), Take 2 capsules by mouth 3 times a day with meals. 2 capsule 4000 units before each meal and 1 before snack. acidophilus probiotic blend, Take 1 capsule by mouth daily. Roflumilast, Apply 1 Dose topically 1 (one) time each day. Creon, Patient is taking 36,000 Units (Patient not taking: Reported on 04/15/2025) cyanocobalamin, 1 each. Prolia, as directed Subcutaneous every 6 months diclofenac, Place on the skin 2 (two) times a day. (Patient not taking: Reported on 04/13/2025) simvastatin, TAKE 1 TABLET EVERY OTHER DAY (Patient not taking: Reported on 04/15/2025) * Preprocedure Instructions - Noy Weeks PA - 04/15/2025 1:15 PM EDT Home Medication Instructions Current Medications Medication Instructions ALPRAZolam (Xanax) 0.5 MG tablet Take morning of surgery cholecalciferol (Vitamin D-3) 125 MCG (5000 UT) capsule Hold 7 days before surgery lisinopril-hydroCHLOROthiazide 20-12.5 MG tablet Hold day of surgery omeprazole (PriLOSEC) [address] capsule Take morning of surgery pancrelipase, Rcp-Jxfm-Xjij, (Zenpep) 3000-35600 units capsule delayed-release particles capsule Hold day of surgery Probiotic Product (acidophilus probiotic blend) capsule Hold 7 days before surgery Roflumilast 0.3 % cream Hold day of surgery [DISCONTINUED] hydrocortisone 1 % cream General Preoperative Instructions You will be called the business day before surgery with your arrival time No food, no thick or dark liquids after midnight the night before the surgery. Please drink clear liquids meaning; water, Gatorade/pedialyte or apple juice until 2 hours prior toarrival time surgery day. No alcohol or smoking prior to surgery Arrive on time to avoid delays Parking/Registration procedure explained You MUST have a responsible adult available for transport to and from hospital Visitation policy for the day of surgery reviewed Bring insurance card, photo ID, along with power of assistant city attorney, guardianship or advanced directives if applicable Do not bring money, jewelry or other valuables Hibiclens bathing instructions reviewed if applicable Notify surgeon of fever, illness, any changes or if you decide not to have surgery documented in this encounter Plan of Treatment Upcoming Encounters Date Type Department Care Team (Late st Contact Info) Description 06/08/2025 3:20 PM EDT Office Visit Medical Office Building [facility] [address] [facility], [address] [place] [address] Jens Carbone MD [address] [facility] [address] [place] [address] 08/24/2025 3:00 PM EDT Ovarian Cancer Screening [facility] Gynecology [address] [facility] [place] [address] documented as of this encounter Goals Goal Patient Goal Type Associated Problems Recent Progress Patient-Stated? Author Autogenerat ed Goal Care Plan Autogenerated Problem No Eboni Pyle documented as of this encounter Visit Diagnoses Not on filedocumented in this encounter Additional Health Concerns Active Problems Noted Date Diagnosed Date Autogenerated Problem 04/08/2025 Assessment Noted Time A fall risk assessment has been complete d for the patient 04/13/2025 1:20 PM EDT A Body Mass Index follow-up plan has been documented for the patient 04/14/2025 6:50 AM EDT documented as of this encounter Care Teams [employer]oples[employer] Business Analyst Relationship Specialty Start Date End Date Ronald Roca MD [address] [place] [address] PCP - General 03/11/21 documented as of this encounter
--- OUTSIDE RECORDS SUMMARY | 2025-04-16 09:45 | XMS_ITS ---
Author Organization [facility] Address [address] [facility] [address] [place] [id number] Care Team Providers Care Biomedical Service Engineer Name Role Phone Jeronimo Roca Primary Care [...] Drug Allergy A ctive REASON FOR VISIT 3 month f/u Medications Medication SIG (Take, Route, Frequency, Duration) Notes Start Date End Date Status Omeprazole 20 MG Take 1 capsule by mo [facility] once daily; Duration: 90 Active Lisinopril-hydroCHLOROthi azide 20-25 MG 1 tab(s) orally once a day; Duration: 90 days 03/28/2023 Active Propranolol HCl 20 MG 1 tab(s) orally on ce a day; Duration: 90 days Not-Takin g Prolia 60 MG/ML as directed Subcutaneous every 6 months 03/17/2024 Active ALPRAZolam 0.5 MG 1 tab(s) orally 3 ti mes a day 04/16/2025 Active Vitamin D3 125 MCG (5000 UT) 1 capsule Orally Once a day; Duration: 90 days Active Cyanocobalamin 1000 MCG/ML 1 mL Injection; Duration: 30 day(s) Active Probiotic - as directed Orally Active Biotin 1000 MCG 1 tablet Orally Once a day; Duration: 30 day(s) Not-Taking Rosuvastatin Calcium 20 MG 1 tablet Orally bedtime; Duration: 90 days 04/16/2025 Active Zenpep 52192-534889 UNIT 2 capsules with meals and 1 with snacks Orally Active Vital Signs Blood pressure systolic 150 mm Hg 04/16/20 25 Blood pressure diastolic 70 mm Hg 025 Heart Rate 78 /min 04/16/2025 Height 64 in 04/16/2025 Weight 187.4 lbs 04/16/2025 BMI 32.16 kg/m2 04/16/2025 Encounters Encounter Location Date Provider Diagnosis NINO-Abdiel [address] [facility] [address] [facility] [address] [place], [place] [id number] 04/16/2025 Jeronimo Roac Arthropathy M12.9 ; Vitamin D deficiency E55.9 ; Aortic valve sclerosis I35.8 ; Status post left knee replacement Z96.652 ; Osteoporosis M81.0 ; Anxiety F41.9 and Pure hypercholesterolemia E78.00 Assessments Encounter Date Diagnosis (ICD Code) Assessment Notes Treatment Notes Treatment Clinical Notes Section Notes 04/16/2025 Arthropathy (ICD-10 - M12.9) 04/16/2025 Vitamin D deficiency (ICD-10 - E55.9) 04/16/2025 Aortic valve scleros is (ICD-10 - I35.8) 04/16/2025 Status post left kne e replacement (ICD-10 - Z96.652) 04/16/2025 Osteoporosis (ICD-10 - M81.0) 04/16/2025 Anxiety (ICD-10 - F41.9) 04/16/2025 Pure hypercholesterolemia (ICD-10 - E78.00) Plan Of Treatment Medication Medication Name Sig Start Date Stop Date Notes ALPRAZolam 0.5 MG 1 tab(s) orally 3 times a day 04/16/2025 Vitamin D3 125 MCG (5000 UT) 1 capsule O rally Once a day; Duration: 90 days Rosuvastatin Calcium 20 MG 1 tablet Oral ly bedtime; Duration: 90 days 04/16/2025 Next Appt Details Follow Up: 2 Months, Reason: Provider Name:Jeronimo nugent, 07/20/2025 01:15:00 PM, [address] [facility] [address] [facility], [address], [place], [id number], Progress Notes * JEFFERY LEE:1945 ( 79 yo F)Acc No.[id number]:04/16/2025 Progress Notes Patient: JOEY RIBEIRO Provider: Jeronimo Roca M.D. :1945 A ge:79 Y S ex:Female Date:04/16/2025 Address:[address] [place] [address], [facility], [id number] Subjective: * Chief Complaints: * 1 . 3 month f/u. * HPI: C ardiology: The pt is here today for a check up on Hypertension. Pt states she is scheduled for right knee surgery on Sunday with Dr Carbone, [facility]. Pt states she would like to discuss her lab studies from her last visit. Pt states she is not fasting. Denies : Chest Pain. D enies : [...] fracture, left foot 02/2009, colonoscopy, diverticulosis, Dr. uBeno 05/25/2008, endoscopy 12/2011, rght foot, bunionectomy 12/2012, Left knee replacment 04/19/3017, EGD and colonoscopy, Dr. Boggs 04/10/3017, all upper teeth pulled 11/2020, EGD and colonoscopy negative, Dr. Sapp 03/01/2022. * Hospitalization/Major Diagno stic Procedure: B [facility] ER- Pneumonia 04/29/2020-05/03/2020. * Family History: F [...] Alcohol: no. * Medications: T aking Zenpep 14815-065422 UNIT Capsule Delayed Release Particles 2 capsules with meals and 1 with snacks Orally , Taking Probiotic - Tablet Delayed Release as directed Orally , Taking Cyanocobalamin 1000 MCG/ML Solution 1 mL Injection , Taking Lisinopril-hydroCHLOROthiazide 20-25 MG Tablet 1 tab(s) orally once a day , Taking Vitamin D3 125 MCG (5000 UT) Capsule 1 capsule Orally Once a day , Taking ALPRAZolam 0.5 MG Tablet 1 tab(s) orally 3 times a day , Taking Omeprazole 20 MG Capsule Delayed Release Take 1 capsule by mouth once daily , Taking Prolia 60 MG/ML Solution Prefilled Syringe as directed Subcutaneous every 6 months , Not-Taking Biotin 1000 MCG Tablet 1 tablet Orally Once a day , Not-Taking Propranolol HCl 20 MG Tablet 1 tab(s) orally once a day , Discontinued Medrol 4 MG Tablet Therapy Pack as directed Orally , Medication List reviewed and reconciled with the patient * Allergies: C laritin-D 12 Hour, Tetracycline, Clarithromycin, Cephalexin, Amoxicillin, Benadryl Allergy, Trimethoprim, Morphine: rash. Objective: * Vitals: W t: 187.4, Temp: 98.1, BP: 150/70, HR: 78, Nurse: VIPIN, Ht: 64, BMI:32.16. * Examination: G eneral Examination: General Appearance: [...] of left knee. Assessment: * Assessment: 1. A rthropathy - M12.9 (Primary) 2 . V itamin D deficiency - E55.9 ? 3 . A ortic valve sclerosis - I35.8 4 . S tatus post left knee replacement - Z96.652 5 . O steoporosis - M81.0 6 . A nxiety - F41.9 7 . P ure hypercholesterolemia - E78.00 Plan: * Treatment: 2. A nxiety Refill ALPRAZolam Tablet, 0.5 MG, 1 tab(s), orally, 3 times a day, 90, Refills 3. 3. P ure hypercholesterolemia Start Rosuvastatin Calcium Tablet, 20 MG, 1 tablet, Orally, bedtime, 90 days, 90, Refills 1. ? * Procedure Codes: G 2211 Complex e/m [place], 1036F TOBACCO NON-USER * Follow Up: 2 Months * Images: Billing Information: * Visit Code: 92976 Office Visit, Est Pt., Level 4. * Procedure Codes: G2211 Complex e/m visit add on. 1036F TOBACCO NON-USER. * Electronic signature of Jeronimo Roca MD on 06/03/2025 at 01:28 PM EDT Sign off status: Pending * Provider: Jeronimo Roca M.D. Date: 0 04/16/2025 Generated for Ben osorio/Amber/eTtingsmitting on: 0 06/03/2025 01:28 PM EDT History and Physical Notes * [...]
--- OUTSIDE RECORDS SUMMARY | 2025-04-21 08:44 | XMS_ITS | Encounter Summary ---
Author Organization [facility] Address [address] [place] [address] Care Team Providers Care Garage Helper Name Role Phone Ronald Roca MD Primary Care Provider [phone] Reason for Referral * Consultation (Routine) - Authorized Specialty Diagnoses / Procedures Referred By Darryl russo Referred To Contact Physical Therapy Diagnoses Primary osteoarthritis of right knee Eliza Zaidi APRN [address] [place] [id number] Phone: tel: fax: Referral ID Status Reason Start Date Expiration Date Visits Requested Visits Authorized [id number] Authorized Consult and Treat 04/23/2025 10/23/2026 1 99 Reason for Visit * Auth/Cert (Routine) Specialty Diagnoses / Procedures Referred By Darryl russo Referred To Contact Diagnoses Primary osteoarthritis of right knee Primary osteoarthritis of right knee [M17.11] Procedures OR TOTAL KNEE ARTHROPLASTY ARTHROPLASTY, KNEE, TOTAL Jens Carbone MD [address] [place] [address] Phone: tel: fax: [facility] [address] [place] [address] Phone: tel: Referral ID Status Reason Start Date Expiration Date Visits Re quested Visits Authorized [id number] 1 1 Encounter Details Date Type Department Care Team (Latest Contact Info) Description 04/21/2025 8:44 AM EDT - 04/23/2025 1:06 PM EDT Hospital Encounter [facility] [address] [place] [address] Jens Carbone MD [address] [place] [address] Primary osteoarthritis of right knee (Primary Dx) Discharge Disposition: Home or Self Care Social [...] Sign Reading Time Taken Comments Blood Pressure 148/71 04/23/2025 11:11 AM EDT Pulse 79 04/23/2025 11:11 AM EDT Temperature 36.7 C (98 F) 04/23/2025 11:11 AM EDT Respiratory Rate 17 04/23/2025 3:47 AM EDT Oxygen Saturation 96% 04/23/2025 11:11 AM EDT Inhaled Oxygen Concentration - - Weight 83.5 kg (184 lb 1.4 oz) 04/21/2025 9:51 A M EDT Height - - Body Mass Index 30.63 04/13/2025 1:20 PM EDT documented in this encounter Functional Status * Calculated C-SSRS Risk Score (Lifetime/Recent) Answer Date of Assessment Author No Risk Indicated 04/23/2025 8:00 AM EDT Sherron Marin RN * Question Answer Date of Assessment Author 1. Wish to be (Past 1 Month) No 025 8:00 AM EDT Sherron Marin, VANESSA 2. Non-Specific Active Suici shahab Thoughts (Past 1 Month) No 04/23/2025 8:00 AM EDT Sherron Marin , VANESSA 6. Suicidal Behavior (Lifetime) No 8:00 AM EDT Sherron Marin, VANESSA documented as of this encounter Discharge Instructions * Discharge Instructions* Eliza Zaidi APRN - 04/21/2025 3:22 PM EDT 1. You will be on Aspirin 81mg twice daily for 4 weeks for deep vein thrombosis prevention. It is important that you take each pill on time every day and to take it for the full 4 weeks. 2. Please see your discharge medication list for the post-operative medications you have been given. Call the clinic with any questions or concerns. 3. You have been given Docusate Sodium to take daily to prevent constipation while taking narcotic pain medications. Take this as long as you are taking narcotics. You can also begin Miralax daily and continue until you have weaned off your narcotic pain medications. If you have had no bowel movement on post-op day #3 you need to take Milk of Magnesia as directed over the counter. Then if no bowel movement by post-op day #5 you need to use a Dulcolax Suppository over the counter as directed. Ifstill no bowel movement at that time your need to call the clinic. documented in this encounter Medications at Time of Discharge [...] Take 1 capsule by mouth daily. 12/26/2021 pancrelipase, Zma-Xgzo-Ofbh, (Zenpep) 3000-13152 units capsule delayed-release particles capsule Take 2 capsules by mouth 3 times a day with meals. 2 capsule 4000 units before each meal and 1 before snack. Probiotic Product (acidophilus probiotic blend) capsule Take [...] every 8 hours. 100 tablet 04/23/2025 5 methocarbamol (Robaxin) 500 MG tablet Take 1 tablet by mouth 3 times a day as needed for muscle spasms. 30 tablet 04/23/2025 5 oxyCODONE (Roxicodone) 5 MG immediate release tablet Take 1 tablet by mouth every 6 hours as needed for moderate pain or severe pain. 50 tablet 04/21/2025 5 traMADol (Ultram) 50 MG tablet Take 1 or 2 tablets every 4-6 hours as needed for moderate pain 56 tablet 04/23/2025 5 documented as of this encounter Miscellaneous Notes * Anay Wang, RN - 04/23/2025 12:04 PM EDT Images from the original note were not included. 93 Polar Care Ice Therapy Your doctor has prescribed an ice therapy machine to help lower your pain and swelling after your surgery. The Polar Care machine consists of a pad that you place on your body connected to a special ?cooler? of ice water. When you turn it on, ice cold water runs non-stop from the machine through tubes in the pad and numbs the area under the pad. The Polar Care pad gets very cold and can cause serious damage to your skin and nerves if you don?tuse it correctly. Follow these instructions carefully ? Always place a towel or T-shirt between the pad and your skin. Don?t let any part of the pad touch your bare skin. ? Turn the machine on for 1 hour and then off for 1 hour whenever you are awake. ? Don?t use the machine while you sleep. ? Look at the skin that is under the pad every hour. If it is in a spot you can?t easily see, have someone else check it for you. ? If the part of your body that you are using ice on is still numb from surgery, you need to be very careful as you won?t be able to feel pain or burning from the ice. ? Tell your doctor or nurse if you have circulation problems or diabetes or if you have had frostbite in the past. ? To save time and use less ice, the cooler with fit 4 standard water bottles (16.9 ounces each). Freeze the water bottles and place them in the cooler. Then fill the cooler with water to the fill line marked inside the cooler. This will keep the water cold for up to 2 days. Freeze 4 more bottles to have them ready to rotate when needed. Stop using the machine immediately and call your doctor if you have any of the following ? Pain or swelling that gets worse ? Blisters or welts ? Increased redness or your skin changes color ? Burning feeling * [facility] - Anay Schmitt RN - 04/23/2025 12:04 PM EDT Images from the original note were not included. 21414 After Knee Replacement: Using a Walker Following your healthcare provider's instructions after knee replacement helps with early recovery.Once you can stand, you?ll start using a walker. Use the walker for moving around as long as the provider asks you to. This is generally four to six weeks but may vary from person to person. There are three main types of walkers: ? Standard without wheels ? 2-wheeled (front) rolling walker ? 4-wheeled rolling walker Your physical therapist or another member of your healthcare team will help you select the best walker for you. As you become better at using the walker and your knee strengthens, you?ll be taught more advanced skills. For instance, after your physical or occupational therapist or ornament maker hand has shown you the correct procedures, you may practice stepping on and off a curb as directed. Your first steps ? Push your walker a few inches in front of you. ? Keeping your back straight, lean on the walker so it supports your weight. Step into the center of the walker with your operated leg, being careful not to twist your leg. Then, step with your otherleg. ? As you get more comfortable using the walker, you may be able to move it as you step. Walking up a curb ? Move your feet and the walker as close to the curb as possible. ? Put your weight on both your legs, then lift the walker onto the curb. ? Step up with the un-operated leg. Using the walker to support your weight, bring up the operated leg. Walking down a curb ? Move your feet and the walker as close to the edge of the curb as you safely can. ? Lower the walker onto the ground, keeping its back legs against the curb. ? Using the walker to support your weight, lower the operated leg. Then step down with the other leg. Last Reviewed Date: 2024 00:00:00 ?? [id number] [employer]. All rights reserved. This information is not intended as a substitute for professional medical care. Always follow your healthcare professional's instructions. * [facility] - Anay Schmitt RN - 04/23/2025 12:04 PM EDT Images from the original note were not included. 13360 Using an Incentive Spirometer An incentive spirometer is a handheld device that helps you do deep breathing exercises after surgery. It also helps lower the risk of breathing problems if you have a lung disease or condition. These exercises expand your lungs, aid in circulation, and may help prevent pneumonia. Deep breathing exercises also help you breathe better and improve lung function by: ? Keeping your lungs clear. ? Making your breathing muscles stronger. ? Helping prevent respiratory complications or problems. The incentive spirometer gives you a way to take an active part in your recovery. A nurse or respiratory therapist will teach you breathing exercises. To do these exercises, you will breathe in through your mouth and not your nose. The incentive spirometer only works correctly if you breathe in through your mouth. Deep breathing expands the lungs, aids circulation, and helps prevent pneumonia. Your health care provider or their staff will tell you how to use the device, your targeted volume(s), and provide other helpful tips to prevent complications (such as pain, dizziness, feeling lightheaded) when blowing in the incentive spirometer. Steps to clear lungs Step 1. Exhale normally. Then, inhale normally. ? Relax and breathe out. Step 2. Place your lips tightly around the mouthpiece. ? Make sure the device is upright and not tilted. ? Sit up and breathe out (exhale) fully. ? Tightly seal your lips around the mouthpiece. Step 3. Inhale as much air as you can through the mouthpiece. Don't breathe through your nose. ? Breathe in (inhale) slowly and deeply. ? Hold your breath long enough to keep the balls, piston, or disk raised for at least 3 to 5 seconds, or as instructed by your health care provider. ? Exhale slowly to allow the balls, piston, or disk to fall before repeating. Note: Some spirometers have an indicator to let you know that you are breathing in too fast. If theindicator goes off, breathe in more slowly. Step 4. Repeat the exercise regularly. ? Do sets of 10 exercises every hour while you're awake, or as instructed by your health care provider. Don't do more than 30 breaths in each set. ? If you were taught deep breathing and coughing exercises, do them regularly as instructed by yourprovider, nurse, or respiratory therapist. Follow-up care Make a follow-up appointment as directed by your health care provider. Also, follow up with your provider as advised if your symptoms don't improve or continue to get worse. When to contact your doctor Contact your health care provider right away if you have: ? A fever 100.4?? (38??C) or higher, or as advised by your provider. ? Brownish, bloody, or smelly sputum (phlegm that you cough up). Call 911 Call 911 if any of these occur: ? Shortness of breath that doesn't get better after taking your medicine ? Cool, moist, pale, or blue skin ? Trouble breathing or swallowing, wheezing ? Fainting or loss of consciousness ? Feeling of dizziness or weakness, or a sudden drop in blood pressure ? Feeling very ill ? Lightheadedness ? Chest pain or rapid heart rate Last Reviewed Date: 2025 00:00:00 ?? [id number] [employer]. All rights reserved. This information is not intended as a substitute for professional medical care. Always follow your healthcare professional's instructions. * [facility] - Anay Schmitt RN - 04/23/2025 12:04 PM EDT Images from the original note were not included. [address]9511 Preventing Deep Vein Thrombosis After Surgery In the days and weeks after surgery, you have a higher chance of developing a deep vein thrombosis (DVT). This is a condition in which a blood clot (thrombus) forms in a deep vein. They are most common in the leg. But a DVT may form in an arm or another deep vein in the body. A piece of the clot, called an embolus, can separate from the thrombus and travel to the lungs. A blood clot in the lungs is called a pulmonary embolus (PE). This can cut off the flow of blood to part or all of the lungs. It's a medical emergency and may cause . Doctors use the term venous thromboembolism (VTE) to describe both DVT and PE. They use the term VTE because the two conditions are very closely related and their prevention and treatment are similar. Prevention in the hospital or other facility Your doctor will usually prescribe one or more of the following to prevent blood clots: ? Blood-thinner (anticoagulant). This medicine prevents blood clots. You take it by mouth, by injection, or through an I.V. (intravenous). Commonly used anticoagulants include warfarin and heparin. Newer anticoagulants may also be used, including rivaroxaban, apixaban, dabigatran, and enoxaparin. Sometimes the doctor may not give you an anticoagulant medicine. It's important that they discuss therisks and benefits with you. ? Compression stockings. These elastic stockings fit tightly around your legs. They help keep bloodflowing toward your heart by the pressure they apply. They prevent blood from pooling and forming blood clots. When you first put them on, the stockings may be uncomfortable. But after a while, you should get used to them. ? Exercises. Simple exercises while you are resting in bed or sitting in a chair can help prevent blood clots. Move your feet in a [place] or up and down. Do this 10 times an hour to improve circulation. ? Getting out of bed and walking (ambulation). After surgery, a nurse will help you out of bed as soon as you are able. Moving around improves circulation and helps prevent blood clots. ? Sequential compression device (SCD) or intermittent pneumatic compression (IPC). Plastic sleeves are wrapped around your legs and connected to a pump that inflates and deflates the sleeves. This applies gentle pressure to promote blood flow in the legs and prevent blood clots. These should be worn when you lie in bed or sit in a chair. Prevention at home Ankle exercises can help keep blood flowing in the veins. Deep vein thrombosis can happen even after you go home. Follow all instructions from your doctor. The following are some general guidelines about DVT prevention: ? Blood-thinner medicine. If a blood thinner was prescribed, make sure you follow all directions about taking it. Be sure you know what foods and medicines may interact. And ask your doctor what to do if you forget to take a dose. ? Compression stockings. Your doctor will tell you how often to wear and remove the stockings. Follow all instructions closely. Each time you remove your stockings, check your legs and feet for red areas or sores. If you see any changes, call your doctor right away. ? Returning to activity. Follow all instructions about returning to activities. Be as active as youcan. This improves blood flow and helps prevent a clot from forming. When in bed or in a chair, continue with the ankle exercises you did in the hospital. ? Sequential compression device (SCD) or intermittent pneumatic compression (IPC). In some cases, this device may be recommended at home. If you are using this device at home, make sure you closely follow all instructions from your doctor. You will be instructed on how often and for how long to usethe device. Remove the sleeves if you are up and walking. When to call your doctor You may have symptoms of a blood clot. Or you may have signs of bleeding from medicines to prevent clots. Contact your doctor right away if you have: ? Pain, swelling, or redness in the leg, arm, or other area. ? Blood in your urine or stool. ? Very dark or tar-like stool. ? Vomiting with blood. ? Bleeding from the nose. ? Bleeding from the gums. ? A cut that won't stop bleeding. ? Bleeding from the vagina. Call 911 Call 911 if you have: ? Chest pain. ? Shortness of breath. ? A fast heartbeat. ? Excessive sweating. ? Fainting. ? Coughing (may cough up blood). ? Heavy or uncontrolled bleeding. Last Reviewed Date: 2025 00:00:00 ?? [id number] [employer]. All rights reserved. This information is not intended as a substitute for professional medical care. Always follow your healthcare professional's instructions. * [facility] - Anay Schmitt RN - 04/23/2025 12:04 PM EDT Images from the original note were not included. 64602 Preventing a Surgical Site Infection A risk of any surgery is an infection at the surgical site. The surgical site is a cut the surgeon makes in the skin to do the surgery. Surgical site infections can range in type. It may be a minor skin infection. Or it may be severe and include tissue under the skin or other organs. In some cases,a severe infection can cause . The information below tells you: ? About surgical site infections. ? What hospitals do to prevent them. ? How they?re treated if they do occur. ? What you can do to prevent an infection. Hand washing reduces the risk of infection. What causes a surgical site infection? Germs are everywhere. They?re on your skin, in the air, and on things you touch. Many germs are good. Some are harmful. Surgical site infections occur when harmful germs enter your body through the incision in your skin. Some infections are caused by germs that are in the air or on objects. But most are caused by germs found on and in your own body. Who is at risk for a surgical site infection? Anyone can have a surgical site infection. Your risk is higher if you: ? Are an older adult. ? Have a weak immune system. ? Have other health conditions such as diabetes. ? Take certain medicines, such as steroids. ? Are a smoker. ? Have certain types of surgery, such as abdominal surgery. ? Have poor nutrition. ? Are very overweight. ? Have a surgery that lasts longer than 2 hours. What are the symptoms of a surgical site infection? An infection often shows up as skin redness, pain, and swelling around the incision that gets worse. Later, a cloudy or greenish-yellow fluid may come from the incision. The fluid may smell bad. The incision may pull apart or open up. You are likely to have a fever and may feel very ill. Symptoms can appear at any time. They may happen from hours to weeks after surgery. Implants such as an artificial knee or hip can become infected at any time after the surgery. How is a surgical site infection treated? ? A surgical site infection is treated with antibiotics. The type of medicine you get will depend on what may be causing the infection. Most serious wound infections need wound care. In some cases, surgery may be needed on the infected wound. ? An infected skin wound may be reopened and cleaned. A deep wound may need to be packed with gauze. The gauze is changed often until the wound starts to heal from the inside out. Your health care provider will decide the best way to treat your infection. ? If an infection occurs where an implant is placed, the implant may be removed. ? If you have an infection deeper in your body, you may need surgery to treat it. What hospitals do to prevent surgical site infections Many hospitals take these steps to help prevent surgical site infections: ? Handwashing. Before the surgery, your surgeon and all surgery staff scrub their hands and arms with an antiseptic soap. ? Clean skin. The site where your incision is made is carefully cleaned with an antiseptic solution. ? Sterile clothing and drapes. The surgical team wears medical uniforms. These are known as scrub suits. They wear long-sleeved surgical gowns, masks, caps, shoe covers, and sterile gloves. Your bodyis fully covered with a large sterile sheet (sterile drape). There is an opening in the sheet wherethe incision is made. ? Clean air. Operating rooms have special air filters. They use positive pressure airflow to prevent unfiltered air from entering the room. ? Careful use of antibiotics. Antibiotics are given no more than 60 minutes before the incision is made. They are generally stopped within 24 hours after surgery. This depends on the type of surgery.This helps kill germs but prevents problems that can occur when antibiotics are taken longer. ? Controlled blood sugar levels. Your blood sugar level may rise. This can be because of the stressof the surgery. Your blood sugar level is watched closely to make sure it stays within a normal range. High blood sugar delays wound healing. This increases the risk of infection. ? Controlled body temperature. A mawra-kmec-gluwon temperature during or after surgery prevents oxygen from reaching the wound. This makes it harder for your body to fight infection. Hospitals may warm I.V. fluids, and provide warm-air blankets. Your temperature is watched throughout the surgery. ? Safe hair removal. Any hair that must be removed is clipped right before the incision, not shavedwith a razor. This prevents tiny nicks and cuts where germs can enter. ? Wound care. After surgery, a closed wound is covered with a sterile dressing for 1 to 2 days. Open wounds are packed with sterile gauze and covered with a sterile dressing. What you can do to prevent a surgical site infection ? Ask questions. Learn what your hospital is doing to prevent infection. ? If instructed, shower or bathe with plain soap the night before and the day of your surgery. Follow all instructions you're given. You may be asked to use a special cleanser that you don?t rinse off. ? If you smoke, stop as long as possible before and after the surgery. Ask your provider about waysto quit. ? Take antibiotics only when your provider tells you to. Using antibiotics when they?re not needed can create germs that are harder to kill. Finish the entire prescription of your antibiotics even ifyou feel better. ? Ask health care workers to clean their hands with plain soap and water or with an alcohol-based hand certified registered locksmith before and after caring for you. Don?t be afraid to remind them. ? After surgery, eat healthy foods. Care for your incision as directed by your health care team. When to contact your doctor Contact your provider or seek medical care right away if: ? The pain at the surgical site gets worse. ? A red streak, worse redness, or puffiness appears near the incision. ? Yellowish, cloudy, or bad-smelling fluid leaks from the incision. ? Your stitches dissolve before the wound heals. ? You have a fever of 100.4?? F ( 38??C ) or higher, or as advised by your provider. ? You have a tired feeling that doesn?t go away. Last Reviewed Date: 2024 00:00:00 ?? [id number] [employer]. All rights reserved. This information is not intended as a substitute for professional medical care. Always follow your healthcare professional's instructions. * [facility] - Anay Schmitt RN - 04/23/2025 12:04 PM EDT Images from the original note were not included. 213 After Total Knee Replacement After your knee replacement, you will need to follow these instructions to avoid complications. Follow these instructions from the time you go home until your doctor says you can stop. Incision care ? If your incision has sutures or mikal, do not shower until after you return to the clinic. ? If your incision is closed with Dermabond Prineo and liquid skin adhesive, you may shower 24 hours after all drainage stops. Leave it in place until your follow-up appointment. ? Sit on a shower chair or tub bench when you shower to keep from falling. Carefully wash around your incision with soap and water. Rinse the incision well. Then gently pat it dry. ? Do not rub the incision or apply creams or lotions. ? If your incision is not draining, you do not need a dressing over it. You may cover your incisionwith a light, dry bandage if you want. ? Check your incision daily for redness, swelling, tenderness or drainage. Swelling ? You will go home with a Polar Pack (ice machine). This will help reduce swelling in your knee anddecrease your pain. ? Use the Polar Pack for 20 minutes 3 times a day after doing your exercises and as needed to decrease swelling and pain. ? Do not place the Polar Pack directly on the skin, You must have clothing, a washcloth, or a pillowcase between the Polar Pack and your skin. ? To refill the Polar Pack, open the cooler lid and add ice and water as directed before each use. ? An DAE bandage will be on your leg after surgery. This can help to prevent swelling and is helpful to use for the first 1-2 weeks after surgery. Activity and exercise ? Follow your doctor?s orders for how much weight to put on the affected leg. ? Walk often and do the exercises physical therapy has taught you three times a day. ? Gradually increase your activity every day. ? Walk up and down stairs with support. Use the railing if possible. Try one step at a time - good knee up, bad knee down. ? Use a cane, crutches, a walker or handrails until your balance, flexibility and strength improve.And remember to ask for help from others when you need it. ? Don?t engage in any jarring sports or activities such as jogging, tennis, or basketball until youhave discussed this with your doctor. Sitting and lying down ? Raise your leg when sitting to help decrease swelling. ? Put a pillow under your ankle, not your knee. ? Sit in chairs with arms. The arms make it easier for you to stand up or sit down. ? Do not sit for more than 30 to 45 minutes at a time. ? Nap if you are tired, but don?t stay in bed all day. ? It is OK to sleep on your stomach or side. Use pillows between your legs when sleeping on your side. Be sure to change the position of your operated leg during the night. Bathroom safety ? Use nonslip bath mats, grab bars and a shower chair in your bathroom. Riding and driving ? Sit on a firm cushion when you ride in a car. ? Don?t drive while you are taking narcotic pain medicine. ? Don?t drive until your doctor says it?s ok. Most people can start driving two to four weeks aftersurgery. Managing pain ? You should expect to have some pain as you heal. This pain may last weeks or months. ? Take pain medicine as directed. Do not skip or add doses. ? Take them at least 20 minutes before doing activities. Take them 30 to 60 minutes before exerciseor physical therapy. ? Do not take other pain medicines unless your doctor approves. This includes cxyk-ufd-wiimhqa medicines like aspirin, ibuprofen and Tylenol. ? As you heal, you will need less pain medicine. Try taking one pill instead of two. Or take them two times a day instead of three times a day. ? Raise your leg. Rest your leg on pillows. The knee should be higher than your hip. Do this when you are in bed or in a chair to help reduce swelling. Do not put a pillow under your knee. This couldcause a blood clot or limit how much your knee bends as you heal. ? Get up and move. This may help relieve discomfort at night. ? You can also try listening to music, relaxing, distracting your mind or repositioning your leg. Preventing infection ? Avoid infection by washing your hands often. ? Call your surgeon right away if you think you have an infection in your operated knee. Signs include a fever, redness, increased pain, or an incision that leaks white, green or yellow fluid. ? Avoid soaking your incision in water (no hot tubs, bathtubs, swimming pools) until your doctor says it?s ok which is typically around 4 weeks after surgery. ? Wait 3 weeks after your surgery to shave your legs. ? Wait 3 weeks after your surgery to get a flu or pneumonia vaccine. ? Wait 2 months after your surgery for any routine dental appointments. When scheduling an appointment, be sure to tell your dentist that you have had a knee replacement. After knee replacement, yourdentist may prescribe antibiotics for dental procedures. ? Call your family doctor right away if you think you might have an infection elsewhere. Preventing blood clots ? Take blood-thinning medicine as directed to prevent blood clots. ? The nurses staff will teach you how to give the enoxaparin injection, if needed. ? Do not miss doses of blood thinning medicine. ? Use caution when taking long car trips or traveling by airplane for the first 6 weeks after surgery. If you must take a long car trip, stop every hour and walk for 10-15 minutes. Your doctor may recommend a blood thinner if you are flying within 6 weeks of surgery. Diet ? It is normal to have a decreased appetite after surgery. Drink a nutritional supplement such as Boost or [place] Instant Breakfast until your appetite returns to normal. ? Maintain a healthy weight. Added body weight puts stress on the knee. Get help to lose any extra pounds. Preventing constipation ? Narcotic pain medicines can cause constipation. ? Take stool softener as prescribed. ? Drink plenty of fluids, especially water. ? Increase fiber in your diet. Fruits, vegetables, beans, nuts and whole grains have fiber in them. ? Call your doctor if your bowels do not move in the next few days after surgery. Sleep ? Some patients have a hard time sleeping after surgery. ? If you have problems sleeping, take msyf-tbn-divhzxp diphenhydramine (Benadryl) or melatonin. ? If you still have problems sleeping, call the clinic. You may need a prescription for a sleep aid. Follow-up care ? Your orthopaedic surgeon will schedule follow-up exams to make sure that your knee is healing correctly. Use this time to ask any questions you have about your recovery or activities. ? If you need a prescription refill before your next appointment, call [phone]. Call 2 business days before you run out. ? To check joint stability over time, you may have X-rays every five years. When should I call the doctor? Call 911 right away if you have any of the following: ? Chest pain ? Shortness of breath or trouble breathing Call your doctor if you have any of the following: ? An increase in knee pain ? Pain or swelling in a calf or leg ? Unusual redness, heat or drainage at the incision site ? Fever of 101.5 degrees F or higher or shaking chills ? Increased swelling in your leg * Care Plan - Sherron Marin RN - 04/23/2025 11:31 AM EDT Problem: Adult Inpatient Plan of Care Goal: Plan of Care Review 04/23/2025 1130 by Sherron Marin RN Outcome: Ongoing, Progressing Flowsheets (Taken 04/23/2025 1130) Progress: improving Plan of Care Reviewed With: patient 04/23/2025 1130 by Sherron Marin, RN Outcome: Ongoing, Progressing Goal: Patient-Specific Goal (Individualized) 04/23/2025 1130 by Sherron Marin RN Outcome: Ongoing, Progressing 04/23/2025 1130 by Sherron Marin RN Outcome: Ongoing, Progressing Goal: Absence of Hospital-Acquired Illness or Injury 04/23/2025 1130 by Sherron Marin RN Outcome: Ongoing, Progressing 04/23/2025 1130 by Sherron Marin RN Outcome: Ongoing, Progressing Goal: Optimal Comfort and Wellbeing 04/23/2025 1130 by Sherron Marin RN Outcome: Ongoing, Progressing 04/23/2025 1130 by Sherron Marin RN Outcome: Ongoing, Progressing Goal: Readiness for Transition of Care 04/23/2025 1130 by Sherron Marin RN Outcome: Ongoing, Progressing 04/23/2025 1130 by Sherron Marin RN Outcome: Ongoing, Progressing Problem: Knee Arthroplasty Goal: Optimal Coping 04/23/2025 1130 by Sherron Marin RN Outcome: Ongoing, Progressing 04/23/2025 1130 by Sherron Marin RN Outcome: Ongoing, Progressing Goal: Absence of Bleeding 04/23/2025 1130 by Sherron Marin RN Outcome: Ongoing, Progressing 04/23/2025 1130 by Sherron Marin RN Outcome: Ongoing, Progressing Goal: Effective Bowel Elimination 04/23/2025 1130 by Sherron Marin RN Outcome: Ongoing, Progressing 04/23/2025 1130 by Sherron Marin RN Outcome: Ongoing, Progressing Goal: Fluid and Electrolyte Balance 04/23/2025 1130 by Sherron Marin RN Outcome: Ongoing, Progressing 04/23/2025 1130 by Sherron Marin RN Outcome: Ongoing, Progressing Goal: Optimal Functional Ability 04/23/2025 1130 by Sherron Marin RN Outcome: Ongoing, Progressing 04/23/2025 1130 by Sherron Marin RN Outcome: Ongoing, Progressing Goal: Absence of Infection Signs and Symptoms 04/23/2025 1130 by Sherron Marin RN Outcome: Ongoing, Progressing 04/23/2025 1130 by Sherron Marin RN Outcome: Ongoing, Progressing Goal: Intact Neurovascular Status 04/23/2025 1130 by Sherron Marin RN Outcome: Ongoing, Progressing 04/23/2025 1130 by Sherron Marin RN Outcome: Ongoing, Progressing Goal: Anesthesia/Sedation Recovery 04/23/2025 1130 by Sherron Marin RN Outcome: Ongoing, Progressing 04/23/2025 1130 by Sherron Marin RN Outcome: Ongoing, Progressing Goal: Optimal Pain Control and Function 04/23/2025 1130 by Sherron Marin RN Outcome: Ongoing, Progressing 04/23/2025 1130 by Sherron Marin RN Outcome: Ongoing, Progressing Goal: Nausea and Vomiting Relief 04/23/2025 1130 by Sherron Marin RN Outcome: Ongoing, Progressing 04/23/2025 1130 by Sherron Marin RN Outcome: Ongoing, Progressing Goal: Effective Urinary Elimination 04/23/2025 1130 by Sherron Marin RN Outcome: Ongoing, Progressing 04/23/2025 1130 by Sherron Marin RN Outcome: Ongoing, Progressing Goal: Effective Oxygenation and Ventilation 04/23/2025 1130 by Sherron Marin RN Outcome: Ongoing, Progressing 04/23/2025 1130 by Sherron Marin RN Outcome: Ongoing, Progressing * Discharge Summary - Eliza ZaidiEFFIE - 04/23/2025 11:28 AM EDT Hospitalization Admit Date/Time: 04/21/2025 8:44 AM Admitting Attending: Jens Carbone Discharge Date: 04/23/2025 Discharge Attending Physician: Jens Carbone MD PCP name and Address: Ronald Roca MD [address] [facility] / [place] [id number] Referring provider name and address: No referring provider defined for this encounter. Chief Concern, Brief History of Present Illness, and Hospital Course Patient arrived to [facility] on 04/21/25 for their scheduled surgery. Patient tolerated the procedure without complication, was extubated in the operating room, and transferred to the PACU for recovery from anesthesia. Shortly thereafter, patient was transferred to the acute care floorfor recovery. Patient's hospital course was without complications. Patient was given prophylactic antibiotics, pain was controlled on oral pain medications, and patient tolerated a regular diet. The patient was kept on DVT prophylaxis with SCD's and aspirin. The patient was cleared to be dischargedby PT/OT prior to discharge. The patient was discharged home. Surgeries and Procedures ARTHROPLASTY, KNEE, TOTAL (Right) Medication List PAUSE taking these medications lisinopril-hydroCHLOROthiazide 20-12.5 MG tablet Wait to take this until: April 24, 2025 Morning Take 1 tablet by mouth daily. .. acetaminophen 500 MG tablet Commonly known as: Tylenol Extra Strength Take 2 tablets by mouth every 8 hours. acidophilus probiotic blend capsule Take 1 capsule by mouth daily. ALPRAZolam 0.5 MG tablet Commonly known as: Xanax Take 1 tablet by mouth 3 times a day. aspirin 81 MG EC tablet Take 1 tablet by mouth 2 times a day for 28 days. For 4 weeks post-op for blood clot prevention cholecalciferol 125 MCG (5000 UT) capsule Commonly known as: Vitamin D-3 Take 1 capsule by mouth. docusate sodium 250 MG capsule Commonly known as: Colace Take 1 capsule by mouth 2 times a day. meloxicam 15 MG tablet Commonly known as: Mobic Take 1 tablet by mouth daily. For 4 weeks post-op methocarbamol 500 MG tablet Commonly known as: Robaxin Take 1 tablet by mouth 3 times a day as needed for muscle spasms. naloxone 4 mg/0.1 mL nasal spray Commonly known as: Narcan 1. Give 1 spray in nostril for no/slow breathing or cannot wake after opioid use 2. Call 911 3. Repeat in other nostril if symptoms continue nutritional drink liquid liquid Twice daily Disp 1 case omeprazole [address] capsule Commonly known as: PriLOSEC Take 1 capsule by mouth daily. oxyCODONE 5 MG immediate release tablet Commonly known as: Roxicodone Take 1 tablet by mouth every 6 hours as needed for moderate pain or severe pain. pancrelipase (Lzo-Dguo-Apbm) 3000-75331 units capsule delayed-release particles capsule Commonly known as: Zenpep Take 2 capsules by mouth 3 times a day with meals. 2 capsule 4000 units before each meal and 1 before snack. Prolia 60 MG/ML injection Generic drug: denosumab as directed Subcutaneous every 6 months Roflumilast 0.3 % cream Apply 1 Dose topically 1 (one) time each day. traMADol 50 MG tablet Commonly known as: Ultram Take 1 or 2 tablets every 4-6 hours as needed for moderate pain . diclofenac 1 % topical gel Commonly known as: Voltaren Place on the skin 2 (two) times a day. Where to Get Your Medications These medications were sent to [facility] - [address] [place] [id number] acetaminophen 500 MG tablet aspirin 81 MG EC tablet docusate sodium 250 MG capsule meloxicam 15 MG tablet methocarbamol 500 MG tablet naloxone 4 mg/0.1 mL nasal spray nutritional drink liquid liquid oxyCODONE 5 MG immediate release tablet traMADol 50 MG tablet Discharge Diagnosis Medical Problems Active and Resolved Hospital Problems Hospital * (Principal) Primary osteoarthritis of right knee Post Discharge Instructions See post-op instruction sheet Outpatient Follow-Up Future Appointments Date Time Provider Department Center 05/06/2025 2:30 PM Alfredo Gonzales PA [facility] 06/08/2025 3:20 PM Jens Carbone MD [facility] 08/24/2025 3:00 PM [facility] Carl Test Results Pending At Discharge Pertinent Physical Exam At Time of Discharge Physical Exam Incision closed with dermabond prineo. Dae wrap in place. Motor/sensation intact. Discharge Disposition/Condition Disposition: Home Condition: Stable (s/sx potential problems absent or manageable) I spent >30 minutes of patient care and instruction time in preparation for this discharge. Cosigned by Jens Carbone MD at 04/24/2025 3:06 PM EDT * Progress Notes - Lizzeth Moreira PA - 04/23/2025 11:12 AM EDT [facility] Medicine Progress Note Subjective: Evaluated with primary team this am, patient is seated in chair with at bedside. Notes improvement in right knee pain and was able to ambulate in hallway and navigate stairs with therapy. Denies nausea/vomiting, dyspnea, or lightheadedness. Feels comfortable discharging home this afternoon. Review of Systems Constitutional: Negative for chills and fever. Respiratory: Negative for cough and shortness of breath. Cardiovascular: Negative for chest pain and palpitations. Gastrointestinal: Negative for abdominal pain, constipation, diarrhea, nausea and vomiting. Genitourinary: Negative for difficulty urinating and dysuria. Musculoskeletal: Positive for arthralgias and joint swelling. Neurological: Negative for dizziness and light-headedness. Objective Physical Exam Vitals and nursing note reviewed. Constitutional: General: She is awake. She is not in acute distress. HENT: Head: Normocephalic and atraumatic. Mouth/Throat: Mouth: Mucous membranes are moist. Cardiovascular: Rate and Rhythm: Normal rate and regular rhythm. Heart sounds: Murmur heard. Pulmonary: Effort: Pulmonary effort is normal. No respiratory distress. Breath sounds: No wheezing. Abdominal: General: There is no distension. Palpations: Abdomen is soft. Tenderness: There is no abdominal tenderness. Musculoskeletal: General: Swelling (right knee, mild) present. Right lower leg: Edema present. Left lower leg: No edema. Comments: Right knee DAE wrap and overlying cryo cuff in place Skin: General: Skin is warm and dry. Capillary Refill: Capillary refill takes less than 2 seconds. Neurological: General: No focal deficit present. Mental Status: She is alert and oriented to person, place, and time. Psychiatric: Mood and Affect: Mood normal. Behavior: Behavior normal. Temp: [36.4 ??C (97.6 ??F)-36.8 ??C (98.3 ??F)] 36.7 ??C (98 ??F) Heart Rate: [70-94] 79 Resp: [16-18] 17 BP: (132-148)/(71-82) 148/71 Recent labs: Recent labs and imaging personally reviewed and noted below: CBC: No results found for: WBC , RBC , HGB , HCT , PLT , MCV , MCH , MCHC , RDW , NRBC Differential: No results found for: WBC , NEUTOPHILPCT , LYMPHOPCT , MONOPCT , EOSPCT , ANEUT Coagulation: No results found for: INR , PT , PTT , CLFGN Renal: No results found for: NA , K , CL , CO2 , BUN , CREATININE , GLUCOSE , CALCIUM , ICAS , MG , PHOS Liver: No results found for: AST , ALT , ALPHO , BILITOT , BILIDIR Glucose: No results found for: PGLU No results found for: HGBA1C Medications: Scheduled: acetaminophen, 1,000 mg, Oral, q8h AMBERLY acidophilus probiotic blend, 1 capsule, Oral, Daily ALPRAZolam, 0.5 mg, Oral, TID aspirin, 81 mg, Oral, BID calcium-vitamin D, 1 tablet, Oral, BID with meals pancrelipase (Trd-Gzfs-Xfbn), 2 capsule, Oral, TID with meals pantoprazole, 40 mg, Oral, Daily before breakfast polyethylene glycol, 17 g, Oral, Daily with breakfast senna-docusate, 2 tablet, Oral, Nightly traMADol, 50 mg, Oral, q8h Continuous: Current Continuous Medications[1] As needed: bethanechol, 20 mg, Once PRN bisacodyl, 10 mg, BID PRN HYDROmorphone, 0.5 mg, q6h PRN magnesium hydroxide, 30 mL, BID PRN methocarbamol, 500 mg, TID PRN ondansetron, 4 mg, q6h PRN oxyCODONE, 5 mg, q4h PRN pancrelipase (Cva-Fpxs-Djgo), 1 capsule, PRN Assessment/Plan Principal Problem: Primary osteoarthritis of right knee Assessment and Plan: Radha Lee is a 79 y.o. female with history of HTN, grade II DD, anxiety, BERYL, PVD, TIA in 2022, GERD, pancreatic insufficiency, osteoporosis, and OA who presents for scheduled right total knee arthroplasty. Medicine is consulted for medical co-management. Essential HTN Grade II diastolic dysfunction History of PACs/PVCs - Follows with [place] [facility] - Systolic BP overall stable in 130s-140s, renal function stable post-op but given age and concurrent inpatient toradol use, would defer resuming home lisinopril-hydrochlorothiazide until discharge starting tomorrow (04/24) - discharge med rec updated to reflect recommendation Right knee osteoarthritis s/p TKA with associated reduced mobility - s/p right TKA 04/21 - PT/OT rec home with assist - DVT ppx: ASA 81mg bid, per primary - Analgesia and bowel regimen per primary Mild hyponatremia - Na 132 per am labs, previously 136 04/13 but with history of intermittent mild hyponatremia ranging from 132-137 since 2016 - PO fluid and solute intake improved from immediately post-op, can resume home lisinopril-hydrochlorothiazide at discharge Chronic/stable conditions: - Anxiety: continue home alprazolam 0.5mg tid - Pancreatic exocrine insufficiency: continue Zenpep with meals/snacks and probiotic, gluten free diet - Benign essential tremor: reports prior neuro workup that was reportedly negative (including Parkinson's), unable to tolerate propranolol s/t tachycardia, tremor resolved spontaneously - Hypercholesterolemia: continue statin - Osteoporosis: on Prolia with last dose ~ 6mo ago, resume vit D supplement at discharge - PAD with history of TIA in 2022: presented as expressive aphasia that lasted a few hours and without residual deficit, BICA < 40% on carotid duplex in 2020, resume statin, not on ASA at baselinedue to h/o PUD - GERD with history of PUD: continue PPI, small hiatal hernia noted per CT A/P 10/2024 - History of BERYL: prior Fe infusion ~ 1.5y ago, Hgb stable at 13.6 per pre-op labs 04/13 - Obesity, mild: BMI 30.6, complicates aspects of care; s/p gastric bypass Inactive/resolved: - Postoperative shivering/rigors Thank you for allowing us to participate in this patient's care. Please reach out with questions orconcerns. LESLY Gipson-C [facility] of [facility] Medicine Secure chat preferred [1] * Progress Notes - Khushbu Wood - 04/23/2025 9:19 AM EDT Physical Therapy Treatment Patient Name: Radha Lee Today's Date: 04/23/2025 PT Discharge Recommendations: Home with assistance, Outpatient PT Equipment Recommended: Rolling walker Subjective Patient reporting she is feeling some better today and agreeable to participate. Participants in Care Family/Caregiver Present: Yes Family/Caregiver: Spouse Theater Education Teacher: Not Applicable Presentation Oxygen Therapy: None (Room air) Lines and Tubes: Intravenous access Pre-Session: Sitting in chair, Lines intact Pre-Session Comments: RN consent to treatment Post-Session: Sitting in chair, Chair alarm, Lines intact, RN notified, Call light in reach Post-Session Comments: All needs met / in reach, PEDRITO LE's elevated, cryocuff donned to right knee, and present Precautions Right Lower Extremity Weight Bearing Status: Weight Bearing as Tolerated Medical Precautions: Fall precautions Objective Pain Reports pain in right knee less than yesterday, but no numerical value given. Reports RN just gave her pain meds. Delirium Screening Garcia Agitation Sedation Scale (RASS): Alert and calm Confusion Assessment Method-ICU (CAM-ICU/PCAM-ICU) Feature 3: Altered Level of Consciousness: Negative Bed Mobility Bed Mobility Exam: Scooting/Bridging Level of [place]: Stand-by assist Physical/Nonphysical Assist: Supervision Assistive Device: Bed rails Bed Mobility Exam: Supine to Sit Level of [place]: Stand-by assist Physical/Nonphysical Assist: Supervision, HOB elevated, Set-up required Assistive Device: Bed rails Bed Mobility Exam: Sit to Supine Level of [place]: Minimum assist (75% patient's effort) Physical/Nonphysical Assist: Verbal Cues, Minimal cues Assistive Device: Bed rails Transfers Transfer Exam: Sit to stand Level of [place]: Stand-by assist Physical/Nonphysical Assist: Verbal Cues, Minimal cues, Set-up required Assistive Device: Walker, rolling Transfer Exam: Stand to Sit Level of [place]: Stand-by assist Physical/Nonphysical Assist: Supervision, Set-up required Assistive Device: Walker, rolling Balance Static Sitting Balance Static Sitting-Balance Support: Feet supported, No upper extremity support Static Sitting-Level of Assistance: Supervision Dynamic Sitting Balance Dynamic Sitting-Balance Support: Feet supported, No upper extremity support Dynamic Sitting-Balance: Lateral weight shifts, Anterior/Posterior weight shifts, Reaching for objects Level of Assistance: Standby assisst Static Standing Balance Static Standing-Balance Support: Right upper extremity support, Left upper extremity support Static Standing-Level of Assistance: Standby assist Dynamic Standing Balance Dynamic Standing-Balance Support: Right upper extremity support, Left upper extremity support Dynamic Standing-Balance: Lateral weight shifts, Anterior/Posterior weight shifts, Reaching for objects Dynamic Standing Level of Assistance: Contact guard Gait Training (38 minutes) Device: Rolling walker Assistance: Contact guard assist, Minimal verbal cues Distance: 100' Gait Analysis: Step to gait pattern, antalgic pattern with decreased stance time, and step length on RLE Gait Training Interventions: Cues for upright posture, forward gaze and initial R heel strike for normalization of step length and stance time Stairs Rails : None Device: Hand held assist, Single point cane Assistance: Minimum assistance, Contact guard, Moderate verbal cues Number of Stairs: 1 flight Stair Training Interventions: Cues on ascending with nonsurgical LE leading and descending with surgical LE leading. Cues also given on weight shifting. Assessment Patient agreeable to participate and pleasant throughout therapy session. She continues to demonstrate progress towards goals by participating in 10 steps Min A/CGA with straight cane and COTTON PULLER. Patient required frequent cuing on how to ascend/descend steps correctly and DIRECTOR OF PHYSICAL SECURITY wrote it down on piece ofpaper for her to remember. She denies SOA/dizziness and demonstrated no loss of balance during session. Continues to require increased time to ambulate short distances. Patient would continue to benefit from skilled PT services to improve strength/endurance, safety, and balance needed to discharge at highest level of function. Pt. has the following impairments: decreased strength, decreased endurance, decreased rom , decreased coordination , pain, and safety awareness. Pt. activity tolerance/endurance is limited to 30+ min's with rest breaks Pt. treatment session: was limited by : pain and fatigue. Pt. still requiring skilled services for functional mobility. PT Recommendations Discharge Destination: Home with assistance, Outpatient PT Discharge Equipment: Rolling walker Plan Plan to continue with skilled PT services per POC as long as patient is agreeable and medically appropriate/stable to participate. PT Goals PT GOAL DETAILS Goal Established Date Time Frame Goal Status PT Goal 1: Patient will perform sit to/from stand transfer with supervision 04/22/25 2 weeks PT Goal 2: Patient will ambulate x 150 ft with RW and supervision 04/22/25 2 weeks PT Goal 3: Patient will ascend/descend 3 stairs with B hand rail with CGA 04/22/25 2 weeks Written by Khushbu Wood on 04/23/25 at 3:15 PM. * Progress Notes - Almas Ruby MD - 04/23/2025 8:19 AM EDT ORTHOPAEDIC SURGERY RECON PROGRESS NOTE 04/23/2025 SUBJECTIVE Pain well controlled. Tolerating PO intake. Urinating: positive, Flatus: positive, BM: not yet. Denies n/v, fever, chills, night sweats, CP, or SOB.? OBJECTIVE Visit Vitals BP (!) 147/74 Pulse 70 Temp 36.4 ??C (97.6 ??F) Resp 17 Wt 83.5 kg (184 lb 1.4 oz) SpO2 98% BMI 30.63 kg/m?? OB Status Postmenopausal Smoking Status Never BSA 1.96 m?? PHYSICAL EXAMINATION General: No acute distress Non-labored breathing Peripheral perfusion intact Focused Musculoskeletal Exam: right lower extremity Knee: Prineo dressing, abd, Dae wrap c/d/i, distally NVI, pillow appropriately positioned under theheel ASSESSMENT AND PLAN Radha Lee is a 79 y.o. female patient s/p R TKA (04/21) - Nutritional optimization - Bowel regimen - Pain control - PTOT Mobility Orders Mobility Protocol: General - Mobility Guidelines Extremity Precautions: No Extremity Precautions Other mobility precautions: Other precautions Other mobility precautions: Other Other: Out of bed to chair 2 hours post-op DVT prophylaxis: ASA PT/OT recommendations: Discharge Recommendation: Home with assistance, Outpatient PT Disposition: PT/OT, anticipate DC home today. FU EW 05/06 Almas Ruby MD PGY-1, Orthopaedic Surgery [facility] Orthopaedic Trauma Service Pager: [phone] Orthopaedic Recon/Spine/Foot and Ankle Service Pager: [phone] Cosigned by Jens Carbone MD at 04/24/2025 3:06 PM EDT * Care Plan - Bin Hernandez RN - 04/23/2025 1:49 AM EDT Problem: Knee Arthroplasty Goal: Optimal Pain Control and Function Outcome: Ongoing, Not Progressing Intervention: Prevent or Manage Pain Flowsheets (Taken 04/23/2025 0149) Pain Management Interventions: medication (see MAR) cold applied * Care Plan - Margret Yousif RN - 04/22/2025 6:59 PM EDT Problem: Adult Inpatient Plan of Care Goal: Plan of Care Review Outcome: Ongoing, Progressing Goal: Patient-Specific Goal (Individualized) Outcome: Ongoing, Progressing Flowsheets (Taken 04/21/20252022 by Bin Hernandez RN) Patient/Family-Specific Goals (Include Timeframe): pt will remain safe this shift Individualized Care Needs: safety Anxieties, Fears or Concerns: none expressed Goal: Absence of Hospital-Acquired Illness or Injury Outcome: Ongoing, Progressing Goal: Optimal Comfort and Wellbeing Outcome: Ongoing, Progressing Goal: Readiness for Transition of Care Outcome: Ongoing, Progressing Problem: Knee Arthroplasty Goal: Optimal Coping Outcome: Ongoing, Progressing Goal: Absence of Bleeding Outcome: Ongoing, Progressing Goal: Effective Bowel Elimination Outcome: Ongoing, Progressing Goal: Fluid and Electrolyte Balance Outcome: Ongoing, Progressing Goal: Optimal Functional Ability Outcome: Ongoing, Progressing Goal: Absence of Infection Signs and Symptoms Outcome: Ongoing, Progressing Goal: Intact Neurovascular Status Outcome: Ongoing, Progressing Goal: Anesthesia/Sedation Recovery Outcome: Ongoing, Progressing Goal: Optimal Pain Control and Function Outcome: Ongoing, Progressing Goal: Nausea and Vomiting Relief Outcome: Ongoing, Progressing Goal: Effective Urinary Elimination Outcome: Ongoing, Progressing Goal: Effective Oxygenation and Ventilation Outcome: Ongoing, Progressing * Progress Notes - Lizzeth Moreira PA - 04/22/2025 4:09 PM EDT [facility] Medicine Progress Note Subjective: Sitting in chair on exam cleaning her face and arms with washcloth. Post-op shivering resolved yesterday evening, notes increase in right knee pain overnight and reports asking for pain medication multiple times. Ambulated with therapy this am but limited mobility due to pain, somewhat improved since receiving oxycodone. Tolerating po intake, enjoys Boost and would like a case at discharge (chocolate, preferably). Review of Systems Constitutional: Negative for chills and fever. Respiratory: Negative for cough and shortness of breath. Cardiovascular: Negative for chest pain and palpitations. Gastrointestinal: Negative for abdominal pain, constipation, diarrhea, nausea and vomiting. Genitourinary: Negative for difficulty urinating and dysuria. Musculoskeletal: Positive for arthralgias, joint swelling and myalgias. Neurological: Negative for dizziness and light-headedness. Objective Physical Exam Vitals and nursing note reviewed. Constitutional: General: She is awake. She is not in acute distress. HENT: Head: Normocephalic and atraumatic. Mouth/Throat: Mouth: Mucous membranes are moist. Cardiovascular: Rate and Rhythm: Normal rate and regular rhythm. Heart sounds: Murmur heard. Pulmonary: Effort: Pulmonary effort is normal. No respiratory distress. Breath sounds: No wheezing. Abdominal: General: There is no distension. Palpations: Abdomen is soft. Tenderness: There is no abdominal tenderness. Musculoskeletal: General: Swelling (right knee) present. Right lower leg: Edema present. Left lower leg: No edema. Comments: Proximal aspect of right knee DAE wrap loosened with reported mild improvement in pain Skin: General: Skin is warm and dry. Capillary Refill: Capillary refill takes less than 2 seconds. Neurological: General: No focal deficit present. Mental Status: She is alert and oriented to person, place, and time. Psychiatric: Mood and Affect: Mood normal. Behavior: Behavior normal. Temp: [36.3 ??C (97.3 ??F)-36.5 ??C (97.7 ??F)] 36.5 ??C (97.7 ??F) Heart Rate: [68-84] 84 BP: (118-147)/(70-80) 135/76 Recent labs: Recent labs and imaging personally reviewed and noted below: CBC: No results found for: WBC , RBC , HGB , HCT , PLT , MCV , MCH , MCHC , RDW , NRBC Differential: No results found for: WBC , NEUTOPHILPCT , LYMPHOPCT , MONOPCT , EOSPCT , ANEUT Coagulation: No results found for: INR , PT , PTT , CLFGN Renal: Lab Results Component Value Date NA 132 (L) 04/22/2025 K 4.0 04/22/2025 CL 99 04/22/2025 CO2 23 04/22/2025 BUN 10 04/22/2025 CREATININE 0.78 04/22/2025 GLUCOSE 104 (H) 04/22/2025 CALCIUM 8.3 (L) 04/22/2025 Liver: No results found for: AST , ALT , ALPHO , BILITOT , BILIDIR Glucose: No results found for: PGLU No results found for: HGBA1C Medications: Scheduled: acetaminophen, 1,000 mg, Oral, q8h AMBERLY acidophilus probiotic blend, 1 capsule, Oral, Daily ALPRAZolam, 0.5 mg, Oral, TID aspirin, 81 mg, Oral, BID aztreonam, 2 g, Intravenous, q8h calcium-vitamin D, 1 tablet, Oral, BID with meals ketorolac, 15 mg, Intravenous, q8h pancrelipase (Luq-Wulx-Lpda), 2 capsule, Oral, TID with meals pantoprazole, 40 mg, Oral, Daily before breakfast polyethylene glycol, 17 g, Oral, Daily with breakfast senna-docusate, 2 tablet, Oral, Nightly traMADol, 50 mg, Oral, q8h Continuous: Current Continuous Medications[1] As needed: bethanechol, 20 mg, Once PRN bisacodyl, 10 mg, BID PRN HYDROmorphone, 0.5 mg, q6h PRN magnesium hydroxide, 30 mL, BID PRN methocarbamol, 500 mg, TID PRN ondansetron, 4 mg, q6h PRN oxyCODONE, 5 mg, q4h PRN pancrelipase (Bik-Ylor-Mhng), 1 capsule, PRN Assessment/Plan Principal Problem: Primary osteoarthritis of right knee Assessment and Plan: Radha Lee is a 79 y.o. female with history of HTN, grade II DD, anxiety, BERYL, PVD, TIA in 2022, GERD, pancreatic insufficiency, osteoporosis, and OA who presents for scheduled right total knee arthroplasty. Medicine is consulted for medical co-management. Essential HTN Grade II diastolic dysfunction History of PACs/PVCs - Follows with [place] [facility] - Hypertensive immediately post-op, now overall normotensive, acute increase likely related to acute pain and anxiety - Renal function remains stable per am labs, resume home lisinopril in am if SBP remains > 120 - Hold hydrochlorothiazide for now, resume depending on fluid status Right knee osteoarthritis s/p TKA with associated reduced mobility - s/p right TKA 04/21 - PT/OT rec home with assist - DVT ppx: ASA 81mg bid, per primary - Analgesia and bowel regimen per primary, methocarbamol prn added Mild hyponatremia - Na 132 per am labs, previously 136 04/13 but with history of intermittent mild hyponatremia ranging from 132-137 since 2017 - Hold home hydrochlorothiazide as above, encourage po fluid intake and defer further IVF Chronic/stable conditions: - Anxiety: continue home alprazolam 0.5mg tid with hold parameters for sedation - Pancreatic exocrine insufficiency: continue Zenpep with meals/snacks and probiotic, gluten free diet - Benign essential tremor: reports prior neuro workup that was reportedly negative (including Parkinson's), unable to tolerate propranolol s/t tachycardia, tremor resolved spontaneously - Hypercholesterolemia: continue statin - Osteoporosis: on Prolia with last dose ~ 6mo ago, resume vit D supplement at discharge - PAD with history of TIA in 2022: presented as expressive aphasia that lasted a few hours and without residual deficit, BICA < 40% on carotid duplex in 2020, resume statin, not on ASA at baselinedue to h/o PUD - GERD with history of PUD: continue PPI, small hiatal hernia noted per CT A/P 10/2024 - History of BERYL: prior Fe infusion ~ 1.5y ago, Hgb stable at 13.6 per pre-op labs 04/13 - Obesity, mild: BMI 30.6, complicates aspects of care; s/p gastric bypass Inactive/resolved: - Postoperative shivering/rigors Thank you for allowing us to participate in this patient's care, we will continue to follow. Pleasecontact the MGS consult JOSE 7A-7P or night JOSE 7P-7A with questions or concerns. JIMMY GipsonC Division of [facility] Medicine Secure chat preferred [1] * Progress Notes - Khushbu Wood - 04/22/2025 1:50 PM EDT Physical Therapy Treatment Patient Name: Radha Lee Today's Date: 04/22/2025 PT Discharge Recommendations: Home with assistance, Outpatient PT Equipment Recommended: Rolling walker Subjective Patient reporting she knows she has to try stairs again. Participants in Care Family/Caregiver Present: Yes Family/Caregiver: Spouse Theater Education Teacher: Not Applicable Presentation Oxygen Therapy: None (Room air) Lines and Tubes: Intravenous access Pre-Session: Supine, Head of bed elevated, Bed alarm, Lines intact Pre-Session Comments: RN consent to treatment Post-Session: Supine, Head of bed elevated, Bed alarm (zone 1, 2, 3), Lines intact, RN notified, Call light in reach, SCDs applied Post-Session Comments: All needs met / in reach and cryocuff donned to R LE. Precautions Right Lower Extremity Weight Bearing Status: Weight Bearing as Tolerated Medical Precautions: Fall precautions Objective Pain Reports pain as an 8/10 today. Delirium Screening Garcia Agitation Sedation Scale (RASS): Alert and calm Confusion Assessment Method-ICU (CAM-ICU/PCAM-ICU) Feature 3: Altered Level of Consciousness: Negative Bed Mobility Bed Mobility Exam: Scooting/Bridging Level of [place]: Stand-by assist Physical/Nonphysical Assist: Supervision Assistive Device: Bed rails Bed Mobility Exam: Supine to Sit Level of [place]: Stand-by assist Physical/Nonphysical Assist: Supervision, HOB elevated, Set-up required Assistive Device: Bed rails Bed Mobility Exam: Sit to Supine Level of [place]: Minimum assist (75% patient's effort) Physical/Nonphysical Assist: Verbal Cues, Minimal cues Assistive Device: Bed rails Transfers Transfer Exam: Sit to stand Level of [place]: Stand-by assist Physical/Nonphysical Assist: Supervision Assistive Device: Walker, rolling Transfer Exam: Stand to Sit Level of [place]: Stand-by assist Physical/Nonphysical Assist: Supervision Assistive Device: Walker, rolling Balance Static Sitting Balance Static Sitting-Balance Support: Feet supported, No upper extremity support Static Sitting-Level of Assistance: Supervision Dynamic Sitting Balance Dynamic Sitting-Balance Support: Feet supported, No upper extremity support Dynamic Sitting-Balance: Anterior/Posterior weight shifts, Lateral weight shifts, Reaching for objects Level of Assistance: Standby assisst Static Standing Balance Static Standing-Balance Support: Right upper extremity support, Left upper extremity support Static Standing-Level of Assistance: Standby assist Dynamic Standing Balance Dynamic Standing-Balance Support: Right upper extremity support, Left upper extremity support Dynamic Standing-Balance: Lateral weight shifts, Anterior/Posterior weight shifts, Reaching for objects Dynamic Standing Level of Assistance: Contact guard Gait Training (25 minutes) Device: Rolling walker Assistance: Contact guard assist, Standby assist, Minimal verbal cues Distance: 100' Gait Analysis: Step to gait pattern, antalgic pattern with decreased stance time, and step length on RLE Gait Training Interventions: Cues for upright posture, forward gaze and initial R heel strike for normalization of step length and stance time Stairs Rails : None Device: Hand held assist (bilaterally) Assistance: Moderate assistance, Moderate verbal cues, Additional assist utilized for safety Number of Stairs: 5 steps Stair Training Interventions: Cues on ascending with nonsurgical LE leading and descending with surgical LE leading. Cues also given on weight shifting. Assessment Patient agreeable to participate and pleasant throughout therapy session. She continues to demonstrate progress towards goals by participating in 5 steps with COTTON PULLER bilaterally Mod A. Patient denies SOA/dizziness and demonstrated no loss of balance during session. Patient would continue to benefit from skilled PT services to improve strength/endurance, safety, and balance needed to discharge at highest level of function. Pt. has the following impairments: decreased strength, decreased endurance, decreased rom , pain, and safety awareness. Pt. activity tolerance/endurance is limited to 20-30 min's with rest breaks Pt. treatment session: was limited by : pain and fatigue. Pt. still requiring skilled services for functional mobility. PT Recommendations Discharge Destination: Home with assistance, Outpatient PT Discharge Equipment: Rolling walker Plan Plan to continue with skilled PT services per POC as long as patient is agreeable and medically appropriate/stable to participate. PT Goals PT GOAL DETAILS Goal Established Date Time Frame Goal Status PT Goal 1: Patient will perform sit to/from stand transfer with supervision 04/22/25 2 weeks PT Goal 2: Patient will ambulate x 150 ft with RW and supervision 04/22/25 2 weeks PT Goal 3: Patient will ascend/descend 3 stairs with B hand rail with CGA 04/22/25 2 weeks Written by Khushbu Wood on 04/22/25 at 2:07 PM. * Progress Notes - Nolvia Mccain - 04/22/2025 9:48 AM EDT Physical Therapy Evaluation Patient Name: Radha Lee Today's Date: 04/22/2025 PT Discharge Recommendations: Home with assistance, Outpatient PT Equipment Recommended: Rolling walker History Radha Lee is 79 y.o. female admitted 04/21/2025 for work-up of Primary osteoarthritis of right knee. Problem List Active Hospital Problems Diagnosis Date Noted Primary osteoarthritis of right knee 04/06/2025 Procedures 04/21/2025 Procedure(s): ARTHROPLASTY, KNEE, TOTAL Past Medical History Patient has a past medical history of Anxiety disorder, unspecified, GERD (gastroesophageal reflux disease), Hyperlipidemia, Hypertension, Personal history of other diseases of the digestive system, and Personal history of other endocrine, nutritional and metabolic disease. Past Surgical History Patient has a past surgical history that includes Cholecystectomy (N/A); Tubal ligation (N/A); Laparoscopic gastric banding (N/A); and Total knee arthroplasty (Left). Precautions Right Lower Extremity Weight Bearing Status: Weight Bearing as Tolerated Medical Precautions: Fall precautions Subjective Patient agreeable to participate with therapy, reports pain in R knee Participants in Care Family/Caregiver Present: Yes Family/Caregiver: Spouse Presentation Oxygen Therapy: None (Room air) Lines and Tubes: Intravenous access Pre-Session: Lines intact, Sitting in chair, Chair alarm Pre-Session Comments: RN consent to treatment Post-Session: Sitting in chair, Call light in reach, RN notified, Lines intact, Chair alarm Post-Session Comments: Needs met Home Living/Set-up Lives With: Spouse Home Type: House Home Adaptive Equipment: None Home Layout: One level Bathroom: Tub/Shower: Walk-in shower Bathroom: Toilet: Tall Prior Level of Function Receives Help From: No assist required prior to admission Level of Mobility: Ambulatory- community Mobility [place]: Independent gait without device History of Falls: No ADL Performance: Independent Patient/Family Goals Full recovery Objective Pain 10/10 Delirium Screening Garcia Agitation Sedation Scale (RASS): Alert and calm Confusion Assessment Method-ICU (CAM-ICU/PCAM-ICU) Feature 3: Altered Level of Consciousness: Negative Cognition Overall Cognitive Status: Within Functional Limits Arousal/Alertness: Appropriate responses to stimuli Mood/Behavior: Alert, Anxious Orientation Level: Oriented X4 Single Step Commands: Consistently Multi-Step Commands: Consistently Method of Communication: Verbal Right Upper Extremity Examination RUE Assessment: Within Functional Limits Manual Muscle Testing - RUE: Within functional limits Left Upper Extremity Examination LUE ROM Assessment LUE Assessment: Within Functional Limits Manual Muscle Testing - LUE Manual Muscle Testing - LUE: Within functional limits Right Lower Extremity Examination RLE ROM Assessment RLE Assessment: Within Functional Limits Manual Muscle Testing - RLE Manual Muscle Testing - RLE: Within functional limits Left Lower Extremity Examination LLE Assessment: Within Functional Limits Manual Muscle Testing: Within functional limits Transfers Transfer Exam: Sit to stand Level of [place]: Contact guard Physical/Nonphysical Assist: Verbal Cues, Moderate cues Assistive Device: Walker, rolling Transfer Exam: Stand to Sit Level of [place]: Contact guard Physical/Nonphysical Assist: Verbal Cues, Moderate cues Assistive Device: Walker, rolling Toilet Transfer Type of Transfer: Ambulation, To bedside commode Balance Postural Appearance Posture: Forward head, Rounded shoulders Static Standing Balance Static Standing-Balance Support: Right upper extremity support, Left upper extremity support Static Standing-Level of Assistance: Standby assist Dynamic Standing Balance Dynamic Standing-Balance Support: Right upper extremity support, Left upper extremity support Dynamic Standing-Balance: Anterior/Posterior weight shifts, Lateral weight shifts Dynamic Standing Level of Assistance: Contact guard Participation in Functional Tasks: Contact guard Gait Training ( minutes) Device: Rolling walker Apparatus: None Assistance: Contact guard assist Distance: 150 ft Gait Analysis: antalgic pattern with decreased stance time and step length on RLE Gait Training Interventions: cues for upright posture, forward gaze and initial R heel strike for normalization of step length and stance time Stairs Rails : Bilateral Device: No device Assistance: Dependent Stair Training Interventions: Pt attempted to negotiate stairs, unable to ascend Therapeutic Exercise (9 minutes) Access Code: [email or web address] URL: [email or web address] Date: 04/22/2025 Prepared by: Nolvia Tavares Notes Total Knee Replacement Exercises - Phase 1 Day 1- Towel Prop - 3 x daily - 15-30 minutes - Phase 1 (Days 1-7) Ankle Pumps - 3 x daily - 20 reps - 3 hold - Phase 1 (Days -) Knee PushDowns - 3 x daily - 20 reps - 3 hold - Phase 1 (Days 1-) Buttocks Squeeze - 3 x daily - 20 reps - 3 hold - Phase I Supine Heel Slide Days - - 3 x daily - 1 sets - 20 reps - Phase 1 (Days 1-7) Short Arc Quad - 2 x daily - 20 reps - 3 hold - Straight Leg Raise - 2 x daily - 20 reps - 3 hold - Phase 1 (Days 1-7) Hip abduction/Adduction - 2 x daily - 20 reps - 3 hold - Phase 1 ( Days 1-7) Calf Stretch with Towel - 3 x daily - 4 reps - 30 hold - Phase 1 Day 1-7 Towel Prop - 3 x daily - 15-30 minutes - Phase 1 (Days 1-7) Seated Knee Flexion - 3 x daily - 20 reps - 3 hold - Phase 1 (Days 1-7) Long Arc Quad - 2 x daily - 20 reps - 3 hold - Phase 2 Days 8-14 Towel Prop with Weight - 3 x daily - 10 reps - 3 hold - 2-5 lbs weight on knee - Phase 2 ( Days 8-14) Prone Knee Flexion - 3 x daily - 20 reps - 3 hold - Phase 2 ( Days 8-14) Knee Flexion with Overpressure - 3 x daily - 20 reps - 3 hold -Phase 2 ( Days 8-14) Standing Marching - 3 x daily - 10 reps - 3 hold - Phase 2 ( Days 8-14) Hip Abduction - 3 x daily - 10 reps - 3 hold - Phase 2 ( Days 8-14) Standing Hip Flexion - 3 x daily - 10 reps - 3 hold - Phase 2 ( Days 8-14) Hip Extension - 3 x daily - 10 reps - 3 hold - Phase 2 (Days 8-14) Gastroc Stretch - 3 x daily - 4 reps - 30 hold - Phase 2 (Days 8-14) Stretching: Hamstring Stretch - 3 x daily - 4 reps - 30 hold - Phase 3 ( Days 15-28) Wall Slide - 3 x daily - 20 reps - Phase 3( Days 15-28) Single Leg Step- Up - 3 x daily - 20 reps - Phase 3( Days 15-) Step Down - 3 x daily- 10 reps - Phase 3 ( Days 15-28) Bilateral Heel Raises - 3 x daily - 10 reps - Phase 3 (Days 15-) Standing Toe Raises - 3 x daily - 20 reps - Phase 3 (Days 15-) Balance: Unilateral (Single Leg Stance) - 3 x daily - 4 reps - 30 hold - Phase 3 ( Days 15-) Side Step - 3 x daily - 4 reps PatientEducation - Total Knee Replacement Instructions Patient participated in therapeutic exercise consisting of glute sets, quad sets, heel slides, calfstretch, hip abduction, SAQ, heel props, SLR, seated heel slides, LAQ, ankle pumps x 10 reps each, to be completed hourly on day of surgery. Education provided on importance of performing frequently to prevent DVT, improve muscle function, improve outcomes, and functional relationship to surgical procedure. Written instruction provided. Standardized Assessments [facility] [address] 6-Clicks Mobility Assessment Difficulty patient has turning over in bed (including adjusting bedclothes, sheets, and blankets)?:None Difficulty patient has sitting down on and standing up from a chair with arms (wheelchair, bedside commode, etc.)?: None Difficulty patient has moving from lying on back to sitting on the side of the bed?: A little How much help does the patient need moving to and from a bed to a chair (including a wheelchair)?: A little How much help does the patient need to walk in hospital room?: A little How much help does the patient need climbing 3-5 steps with a railing?: Unable [facility] [address] 6-Clicks Mobility Assessment Total : 18 Assessment Patient tolerated session without adverse events; she will benefit from skilled IP PT during her hospitalization to address the impairments detailed below. She will need to attempt stairs again priorto d/c due to stairs at entrance of home Impairments: Impaired gait dynamics/performance, Impaired functional mobility/transfers, Decreased strength, Decreased range of motion, Pain Activity Limitations: Inability to ambulate independently, Inability to transfer independently, Inability to ambulate community distances Participation Restrictions: Self-care, Home management, Community leisure Activity Tolerance: Tolerates 10 - 20 min activity with multiple rests Evaluation/Treatment Tolerance: Patient limited by pain Diagnosis: right TKA Rehab Potential: Good, to achieve stated therapy goals Barriers to Discharge: Comorbidities Eval Complexity History Profile: No personal factors and/or comorbidities Clinical Presentation: Stable and/or uncomplicated characteristics Clinical Decision Making: Low complexity PT Recommendations Discharge Destination: Home with assistance, Outpatient PT Discharge Equipment: Rolling walker Plan Planned PT Interventions Gait training, Transfer training, Strengthening, ROM, Functional Mobility PT Frequency Twice daily PT Duration 2 weeks Goals PT GOAL DETAILS Time Frame PT Goal 1: Patient will perform sit to/from stand transfer with supervision 2 weeks PT Goal 2: Patient will ambulate x 150 ft with RW and supervision 2 weeks PT Goal 3: Patient will ascend/descend 3 stairs with B hand rail with CGA 2 weeks Written by Nolvia Mccain on 04/22/25 at 9:48 AM. * Progress Notes - Lizette Sol RN - 04/22/2025 9:38 AM EDT Case Management Adult Progress Note Radha Lee 79 y.o. female CSN: [id number] Admission: 04/21/2025 8:44 AM Primary Problem: Primary osteoarthritis of right knee RW to be delivered to bedside today by [employer]. Additional Comments Lizette Sol RN * Progress Notes - Almas Ruby MD - 04/22/2025 9:18 AM EDT ORTHOPAEDIC SURGERY RECON PROGRESS NOTE 04/22/2025 SUBJECTIVE Pain well controlled. Tolerating PO intake. Urinating: positive, Flatus: positive, BM: not yet. Denies n/v, fever, chills, night sweats, CP, or SOB.? OBJECTIVE Visit Vitals BP (!) 147/80 Pulse 72 Temp 36.4 ??C (97.6 ??F) Resp 12 Wt 83.5 kg (184 lb 1.4 oz) SpO2 98% BMI 30.63 kg/m?? OB Status Postmenopausal Smoking Status Never BSA 1.96 m?? PHYSICAL EXAMINATION General: No acute distress Non-labored breathing Peripheral perfusion intact Focused Musculoskeletal Exam: right lower extremity Knee: Prineo dressing, abd, Dae wrap c/d/i, distally NVI, pillow appropriately positioned under theheel ASSESSMENT AND PLAN Radha Lee is a 79 y.o. female patient s/p R TKA (04/21) - Nutritional optimization - Bowel regimen - Pain control - PTOT Mobility Orders Mobility Protocol: General - Mobility Guidelines Extremity Precautions: No Extremity Precautions Other mobility precautions: Other precautions Other mobility precautions: Other Other: Out of bed to chair 2 hours post-op DVT prophylaxis: ASA PT/OT recommendations: Disposition: PT/OT, anticipate DC home today. FU EW 05/06 Almas Ruby MD PGY-1, Orthopaedic Surgery [facility] Orthopaedic Trauma Service Pager: [phone] Orthopaedic Recon/Spine/Foot and Ankle Service Pager: [phone] Cosigned by Jens Carbone MD at 04/22/2025 4:21 PM EDT * Progress Notes - Minal Churchyamila Garnett - 04/22/2025 8:33 AM EDT Occupational Therapy Evaluation Patient Name: Radha Lee Today's Date: 04/22/2025 OT Discharge Recommendations: Home with assistance, Outpatient PT Equipment Recommended: Rolling walker History Radha Lee is 79 y.o. female admitted 04/21/2025 for work-up of Primary osteoarthritis of right knee. Problem List Active Hospital Problems Diagnosis Date Noted Primary osteoarthritis of right knee 04/06/2025 Procedures 04/21/2025 Procedure(s): ARTHROPLASTY, KNEE, TOTAL Past Medical History Patient has a past medical history of Anxiety disorder, unspecified, GERD (gastroesophageal reflux disease), Hyperlipidemia, Hypertension, Personal history of other diseases of the digestive system, and Personal history of other endocrine, nutritional and metabolic disease. Past Surgical History Patient has a past surgical history that includes Cholecystectomy (N/A); Tubal ligation (N/A); Laparoscopic gastric banding (N/A); and Total knee arthroplasty (Left). Precautions None Subjective I had trouble last night Participants in Care Family/Caregiver Present: Yes Family/Caregiver: Spouse Presentation Oxygen Therapy: None (Room air) Lines and Tubes: Intravenous access Pre-Session: Supine, Head of bed elevated, Lines intact Pre-Session Comments: RN consent to treatment Post-Session: Sitting in chair, Call light in reach, RN notified, Lines intact, Chair alarm Home Living/Set-up Lives With: Spouse Home Type: House Home Adaptive Equipment: None Home Layout: One level Bathroom: Tub/Shower: Walk-in shower Bathroom: Toilet: Tall Prior Level of Function Receives Help From: No assist required prior to admission Level of Mobility: Ambulatory- community Mobility [place]: Independent gait without device History of Falls: No ADL Performance: Independent Patient/Family Goals Statement Pt agreeable to assessment Objective Pain No rating given Delirium Screening Garcia Agitation Sedation Scale (RASS): Alert and calm Confusion Assessment Method-ICU (CAM-ICU/PCAM-ICU) Feature 3: Altered Level of Consciousness: Negative Cognition Overall Cognitive Status: Within Functional Limits Arousal/Alertness: Appropriate responses to stimuli Mood/Behavior: Alert, Anxious Orientation Level: Oriented X4 Single Step Commands: Consistently Multi-Step Commands: Consistently Method of Communication: Verbal Right Upper Extremity Examination RUE ROM Assessment RUE Assessment: Within Functional Limits Manual Muscle Testing - RUE: Within functional limits Left Upper Extremity Examination LUE ROM Assessment LUE Assessment: Within Functional Limits Manual Muscle Testing - LUE: Within functional limits Right Lower Extremity Examination RLE ROM Assessment RLE Assessment: Within Functional Limits Manual Muscle Testing - RLE: Within functional limits Left Lower Extremity Examination LLE ROM Assessment LLE Assessment: Within Functional Limits Manual Muscle Testing: Within functional limits Bed Mobility Bed Mobility Exam: Rolling/Turning Level of [place]: Stand-by assist Physical/Nonphysical Assist: Minimal cues, Verbal Cues Bed Mobility Exam: Scooting/Bridging Level of [place]: Stand-by assist Physical/Nonphysical Assist: Minimal cues Bed Mobility Exam: Supine to Sit Level of [place]: Contact guard Physical/Nonphysical Assist: Supervision, Minimal cues, Verbal Cues Transfers Transfer Exam: Sit to stand Level of [place]: Contact guard Physical/Nonphysical Assist: Verbal Cues, Moderate cues Assistive Device: Walker, rolling Transfer Exam: Stand to Sit Level of [place]: Contact guard Physical/Nonphysical Assist: Verbal Cues, Moderate cues Assistive Device: Walker, rolling Toilet Transfer Level of [place]: Contact guard Physical/Nonphysical Assist: Minimal cues, Verbal Cues Type of Transfer: Ambulation, To bedside commode Assistive Device: Walker, rolling Therapeutic Activity (8 minutes) See bed mobility and transfer sections. Pt completed additional training including functional and dynamic activity with focus on balance, safety, and energy conservation. OT instructed pt on safety ,posture, and importance of knee flexion with walking and position of walker to increase functional independence in home and community setting post surgery. Self-Care Interventions Self Care/Home Management (ADLs) Time Entry: 45 Feeding Feeding Level of Assistance: Setup, Independent Feeding Where Assessed: Chair Level Grooming Grooming Level of Assistance: Setup, Contact guard, Minimal verbal cues Grooming Where Assessed: Standing sinkside UE Dressing UE Dressing Level of Assistance: Setup, SBA UE Dressing Where Assessed: Chair level Lower Extremity Dressing Pants Level of Assistance: Contact guard, Moderate verbal cues, Setup Sock Level of Assistance: Setup, Close supervision, Minimal verbal cues Shoe Level of Assistance: Setup, Close supervision, Minimal verbal cues LE Dressing Where Assessed: Chair level Toileting Toileting Level of Assistance: Setup, SBA, Minimal verbal cues Where Assessed: Bedside commode Pt completed additional ADL training including Grooming, UE Dressing, LE Dressing, Toileting transfer, Toileting hygiene, Eating/Feeding, Education on bathroom and shower safety, Functional mobility to simulate household distance/management, and IADL/Home management techniques. OT provided CGA to SBA for balance with additional verbal cues for safety, posture, and adaptive techniques. Education on shower transfer and the benefit of initial supervision for bathing as heat and pain medication maycause dizziness and LOB increasing risk for fall. Pt vocalized understanding after OT provided education on purpose and use of Cryo cuff, how to properly don and doff, and need for barrier to skin. OT provided education on the importance of positioning while at rest to promote extension. Extensive time taken due to pt's anxiety and needing repeated instruction. OT provided verbal, visual, and tactile cues with varied follow through. Pt was also very thorough when completing her ADL's, requiringextra time. Standardized Assessments [facility] 6-Click Daily Activities Help from Other: Don/Doff Regular Lower Body Clothings: None Help From Other: Bathing: Little Help From Other: Toileting: None Help From Other: Don/Doff Upper Body Clothings: None Help From Other: Grooming: None Help From Other: Eating Meals: None [facility] 6 Click - Daily Activities Score: 23 Assessment Pt participated in skilled OT Evaluation and ADL's this date. Pt completed a functional assessment,addressing pt's Bed mobility, ADL tasks, Functional mobility, Overall functional strength , Activity tolerance/functional endurance, and pain management/anxiety this session. Pt tolerated session well, but limitations noted due to anxiety and ability to focus due to this during evaluation. OT provided cues for sequencing , safety, Pain management techniques, and TKA protocol. OT also graded/modified activities to pt's need and functional level, gave feedback, as well as setting up room to provide a safe environment conducive to treatment. OT provided CGA physical assistance for Balance, Upright Posture, and sit<>stand. Pt will not be added to OT caseload due to treatment/education being completed this session and no further Acute OT intervention needed. OT Findings: Impaired ADL performance, Impaired IADL performance, Impaired functional mobility, Impaired balance, Impaired judgment during ADL Evaluation/Treatment Tolerance: Other (Comment), Patient limited by fatigue (Anxiety) Barriers to Discharge: Attitude of self, Comorbidities Eval Complexity Occupational Profile: Expanded review of medical/therapy records and additional review of physical,cognitive, or psychosocial history Performance Deficits: Activities of daily living (ADLs), Routines, Roles, Instrumental activities of daily living (IADLs), Leisure, Habits Clinical Decision Making: Moderate Overall Eval complexity: Moderate OT Recommendations Discharge Destination: Home with assistance, Outpatient PT Discharge Equipment: Rolling walker Plan Patient no longer demonstrates need for inpatient occupational therapy services. Patient to be discharged from occupational therapy. Written by Farzana Church on 04/22/25 at 9:17 AM. * Care Plan - Bin Hernandez RN - 04/22/2025 4:22 AM EDT Problem: Adult Inpatient Plan of Care Goal: Plan of Care Review Outcome: Ongoing, Progressing Goal: Patient-Specific Goal (Individualized) Outcome: Ongoing, Progressing Goal: Absence of Hospital-Acquired Illness or Injury Outcome: Ongoing, Progressing Goal: Optimal Comfort and Wellbeing Outcome: Ongoing, Progressing Goal: Readiness for Transition of Care Outcome: Ongoing, Progressing * Clinician Note - Francine Reeder - 04/21/2025 4:28 PM EDT Physical Therapy Attempt Patient Name: Radha Lee Today's Date: 04/21/2025 Patient was attempted to be seen by physical therapy 04/21/2025 for PT Evaluation however patient politely declined - after multiple attempts to coordinate, patient states she wants to defer evaluation until after she is able to receive a specific medication (needed prior to eating, per pt report) and is able to eat. Patient is educated on post-op isometrics and encouraged to have staff assist to chair for dinner. Physical therapy team will follow-up again tomorrow. Written by Francine Reeder on 04/21/25 at 5:17 PM. * Consults - Lizzeth Moreira PA - 04/21/2025 4:10 PM EDTAssociated Order(s): Inpatient consult to Hospitalist Rigoberto Hatch Inpatient consult to Maritza Hatch Consult performed by: Lizzeth Moreira PA Consult ordered by: Eliza Zaidi APRN Reason For Consult: medical co-management Requested Service: ortho reconstruction Requested Date/Time: 04/21/2025 1204 HISTORY: History Of Present Illness/Chief Complaint: Radha Lee is a 79 y.o. female with a PMH of HTN, grade II DD, anxiety, BERYL, PVD, TIA in 2022, GERD, pancreatic insufficiency, osteoporosis, and OA who presents for scheduled right total knee arthroplasty. Medicine is consulted for medical co-management, evaluated post-op on acute floor after receiving RN notification of patient shaking and hypertensive (systolic BP 180s) on arrival from PACU. On exam, patient is awake and alert supine in bed with diffuse rigors, family and primary team at bedside. Patient converses in full sentences, notes right knee pain is slowly increasing since immediately post-op at which time she had no pain for the first time in years and becomes tearful when disc ussing her symptoms. Notes feeling shaky but denies mateo chills. Does note history of anxiety for which she takes alprazolam tid with last dose this am. Reports history of isolated seizure after childbirth in 1960s during which she was unable to speak and cannot recall events immediately thereafter. Denies subsequent seizure activity or use of seizure medication. During the course of exam patient's shivering improves somewhat as does her anxiety. Consumed po medications with water without noted difficulty. Requests to resume her home Zenpep prior to eating as she has diarrhea without use. Review of Systems Review of Systems Constitutional: Negative for appetite change, fever and unexpected weight change. HENT: Negative. Eyes: Negative. Respiratory: Negative for cough and shortness of breath. Cardiovascular: Negative for chest pain and palpitations. Gastrointestinal: Negative for abdominal pain, constipation, nausea and vomiting. Diarrhea: occasional if she does not take pancreatic enzymes. Endocrine: Negative. Genitourinary: Negative for difficulty urinating and dysuria. Musculoskeletal: Positive for arthralgias and gait problem. Skin: Negative. Allergic/Immunologic: Negative. Neurological: Positive for numbness (BLE s/p pre-op spinal block, resolving). Negative for dizziness and light-headedness. Hematological: Negative. Psychiatric/Behavioral: The patient is nervous/anxious. Past Medical History Essential hypertension Grade II diastolic dysfunction Osteoporosis Anxiety with chronic benzo use Iron deficiency anemia with prior iron infusion ~ 1.5y ago Osteoarthritis TIA, 2022 Peripheral vascular disease Mild pulmonary hypertension (RVSP 47mmHg) Pancreatic exocrine insufficiency GERD with history of peptic ulcer disease Remote seizure after childbirth in 1960s, no recurrence with subsequent and not on antiepileptic(s) Chronic back pain Psoriasis Surgical History Past Surgical History: Procedure Laterality Date CHOLECYSTECTOMY N/A Cholecystotomy from [facility] LAPAROSCOPIC GASTRIC BANDING N/A Laparosc Gastric Restrictive Proc By Adjustable Gastric Band from [facility] TOTAL KNEE ARTHROPLASTY Left TUBAL LIGATION N/A Tubal Ligation from [facility] Family History Family History Problem Relation Name Age of Onset Cardiac disorder Other Stroke Other Diabetes Other Hypertension Other Other cancer Other Heart attack Other Anesthesia problems Neg Hx Malig Hyperthermia Neg Hx Social History Social History Tobacco Use Smoking status: Never Smokeless tobacco: Never Vaping Use Vaping status: Never Used Substance Use Topics Alcohol use: Never Drug use: Never Allergies Allergies Allergen Reactions Cephalexin Itching, Hives, Unknown [...] states they do not know rxn details MEDICATIONS: Home Medications: Current Outpatient Medications Medication Instructions ALPRAZolam (XANAX) 0.5 mg, 3 times daily cholecalciferol (VITAMIN D-3) 5,000 Units denosumab (Prolia) 60 MG/ML injection as directed Subcutaneous every 6 months diclofenac (Voltaren) 1 % topical gel Transdermal, 2 times daily lisinopril-hydroCHLOROthiazide 20-12.5 MG tablet 1 tablet, Daily omeprazole (PRILOSEC) 20 mg, Daily oxyCODONE (ROXICODONE) 5 mg, Oral, Every 6 hours PRN pancrelipase, Baa-Wuyv-Hprj, (Zenpep) 3000-44047 units capsule delayed-release particles capsule 2 capsules, 3 times daily with meals Probiotic Product (acidophilus probiotic blend) capsule 1 capsule, Daily Roflumilast 0.3 % cream 1 Dose, ZZ Daily RT Inpatient Medications: Scheduled: acetaminophen, 1,000 mg, Oral, q8h AMBERLY [START ON 04/22/2025] acidophilus probiotic blend, 1 capsule, Oral, Daily ALPRAZolam, 0.5 mg, Oral, TID [START ON 04/22/2025] aspirin, 81 mg, Oral, BID aztreonam, 2 g, Intravenous, q8h calcium-vitamin D, 1 tablet, Oral, BID with meals ketorolac, 15 mg, Intravenous, q8h pancrelipase (Baz-Ymbm-Pqqr), 2 capsule, Oral, TID with meals pantoprazole, 40 mg, Oral, Daily before breakfast [START ON 04/22/2025] polyethylene glycol, 17 g, Oral, Daily with breakfast senna-docusate, 2 tablet, Oral, Nightly traMADol, 50 mg, Oral, q8h Continuous: Current Continuous Medications[1] As needed: bethanechol, 20 mg, Once PRN bisacodyl, 10 mg, BID PRN HYDROmorphone, 0.5 mg, q6h PRN magnesium hydroxide, 30 mL, BID PRN ondansetron, 4 mg, q6h PRN oxyCODONE, 5 mg, q4h PRN pancrelipase (Eeh-Cewp-Uzug), 1 capsule, PRN EXAM: Last Recorded Vitals Vitals: 04/21/25 1527 04/21/25 1533 04/21/25 1534 04/21/25 1536 BP: (!) 154/81 (!) 182/88 (!) 173/82 (!) 175/94 Pulse: 82 92 92 96 Resp: Temp: 36.4 ??C (97.5 ??F) TempSrc: SpO2: 95% 94% 96% 95% Weight: Intake/Output Summary (Last 24 hours) at 04/21/2025 1610 Last data filed at 04/21/2025 1330 Gross per 24 hour Intake 700 ml Output 0 ml Net 700 ml Admission weight: Weight: 83.5 kg (184 lb 1.4 oz) Physical Exam Vitals and nursing note reviewed. Constitutional: General: She is awake. Appearance: She is obese. HENT: Head: Normocephalic and atraumatic. Mouth/Throat: Mouth: Mucous membranes are moist. Cardiovascular: Rate and Rhythm: Regular rhythm. Tachycardia present. Pulses: Normal pulses. Heart sounds: Murmur heard. Pulmonary: Effort: Pulmonary effort is normal. No respiratory distress. Breath sounds: No wheezing. Abdominal: General: There is no distension. Palpations: Abdomen is soft. Tenderness: There is no abdominal tenderness. There is no rebound. Musculoskeletal: Cervical back: Neck supple. Right lower leg: Edema (trace) present. Left lower leg: Edema (trace) present. Comments: Right knee DAE wrap and overlying cryo cuff in place Skin: General: Skin is warm and dry. Capillary Refill: Capillary refill takes 2 to 3 seconds. Neurological: General: No focal deficit present. Mental Status: She is alert and oriented to person, place, and time. Cranial Nerves: No cranial nerve deficit. Motor: Tremor present. Psychiatric: Mood and Affect: Mood is anxious. Affect is tearful. RESULTS: Recent labs and imaging personally reviewed and noted below: Labs: CMP: Lab Results Component Value Date GLUCOSE 108 (H) 04/13/2025 BUN 8 04/13/2025 CREATININE 0.86 04/13/2025 BCR 9 04/13/2025 NA 136 04/13/2025 K 3.7 04/13/2025 CL 97 04/13/2025 CO2 26 04/13/2025 CA 9.0 04/20/2017 ALBUMIN 4.5 04/13/2025 BILITOT 0.2 05/01/2020 A1C: No results found for: HGBA1C CBC: Lab Results Component Value Date WBC 5.77 04/13/2025 HGB 13.6 04/13/2025 HCT 42.6 04/13/2025 MCV 91 04/13/2025 PLT 328 04/13/2025 Cardiology: No results found for this or any previous visit (from the past 4464 hours). No echocardiogram results found for the past 12 months ASSESSMENT AND PLAN: Radha Lee is a 79 y.o. female with history of HTN, grade II DD, anxiety, BERYL, PVD, TIA in 2022, GERD, pancreatic insufficiency, osteoporosis, and OA who presents for scheduled right total knee arthroplasty. Medicine is consulted for medical co-management. Postoperative rigors - Noted on arrival from PACU, A/O x 4 and able to converse in full sentences without focal neuro deficits or hypothermia - Low suspicion for seizure activity, potentially related to recent anesthesia/periop medications vs anxiety - Warm blankets placed, agree with optimizing pain control with multimodal analgesia regimen, home alprazolam resumed with hold parameters for sedation Essential HTN Grade II diastolic dysfunction History of PACs/PVCs - Follows with [place] [facility] - Echo 06/2024 reviewed with EF 60-65%, grade II DD with increased LA pressure, est PA systolic pressure is 47mmHg, mod TR, mild - Holter 01/2019 with ~ 7500 PACs - ECG 05/2024 at OSH with sinus rhythm and occasional PVCs - Hypertensive post-op, though possible skewed in setting of acute pain and anxiety with managementas noted above - Resume home lisinopril 20mg in am depending on BP trend - Hold hydrochlorothiazide for recent OR, resume in am depending on fluid status Right knee osteoarthritis s/p TKA with associated reduced mobility - s/p right TKA today - PT/OT eval pending - DVT ppx: ASA 81mg bid, per primary - Analgesia and bowel regimen per primary Chronic/stable conditions: - Anxiety: resume home alprazolam 0.5mg tid scheduled with hold parameters for sedation - Pancreatic exocrine insufficiency: resume Zenpep with meals/snacks and probiotic, gluten free diet - Benign essential tremor: reports prior neuro workup that was reportedly negative (including Parkinson's), unable to tolerate propranolol s/t tachycardia, tremor resolved spontaneously - Hypercholesterolemia: resume statin - Osteoporosis: on Prolia with last dose ~ 6mo ago, resume vit D supplement at discharge - PAD with history of TIA in 2022: presented as expressive aphasia that lasted a few hours and without residual deficit, BICA < 40% on carotid duplex in 2020, resume statin, not on ASA at baselinedue to h/o PUD - GERD with history of PUD: resume PPI, small hiatal hernia noted per CT A/P 10/2024 - History of BERYL: prior Fe infusion ~ 1.5y ago, Hgb stable at 13.6 per pre-op labs 04/13 - Obesity, mild: BMI 30.6, complicates aspects of care; s/p gastric bypass Thank you for allowing us to participate in this patient's care, we will continue to follow. Pleasecontact the hospital medicine JOSE ([facility] consult JOSE 7A- 7P, night JOSE 7P-7A) with questions or concerns. JIMMY GipsonC Division of Hospital Medicine Secure chat preferred [1] lactated Ringer's, 50 mL/hr, Last Rate: 50 mL/hr (04/21/25 1542) Cosigned by Paula Luevano MD at 04/22/2025 3:16 PM EDT Associated attestation - Paula Luevano MD - 04/22/2025 3:16 PM EDT The patient was seen only by Advanced Practice Provider (JOSE). * Anesthesia PACU Signout - Blair Ramsey MD - 04/21/2025 2:47 PM EDT Patient: Radha Lee Anesthesia Type: spinal, general Vitals Value Taken Time BP 123/46 04/21/25 14:30 Temp 36.2 ??C (97.1 ??F) 04/21/25 14:10 Pulse 79 04/21/25 14:35 Resp 11 04/21/25 14:35 SpO2 93 % 04/21/25 14:35 Vitals shown include unfiled device data. Anesthesia PACU Signout Patient location during evaluation: PACU Patient participation: complete - patient participated Level of consciousness: baseline and awake Pain management: adequate (pain score 0-3) Airway patency: natural airway Hydration status: acceptable PONV: none Cardiovascular status: acceptable and hemodynamically stable Respiratory status: acceptable, spontaneous ventilation, unassisted and nonlabored ventilation Discharge Disposition: admit to inpatient unit Cosigned by Bryan Carver MD at 04/21/2025 2:55 PM EDT Associated attestation - Bryan Carver MD - 04/21/2025 2:55 PM EDT I saw and evaluated the patient with the resident/fellow. I discussed the case with the resident/fellow and agree with the findings and plan as documented. * Op Note - Jens Carbone MD - 04/21/2025 12:21 PM EDT OPERATIVE REPORT Date of procedure: 04/21/2025 Name: Radha Lee : 1945 Primary osteoarthritis of right knee Primary osteoarthritis of right knee Procedure: ARTHROPLASTY, KNEE, TOTAL Surgeons: Primary: Jens Carbone MD Assisting: Alfredo Gonzales PA Fellow: Reyes Henao MD Anesthesia: Spinal ASA: III EBL: minimal Implants: Implant Name Type Inv. Item Serial No. Metal Furniture Panel Coverer Lot No. LRB No. Used Action CEMENT PALACOS - [id number] CEMENT PAL[employer]OS [id number] Right 2 Implanted CHG FEMORAL LEGION CR NRRW OXIN SZ6 RT - [id number] CHG FEMORAL LEGION CR NRRW OXIN SZ6 RT Thomas & [employer]-[id number] Right 1 Implanted CHG TIBIAL JOURNEYIA BASE COMPLIANCE AUDITOR R - [id number] CHG TIBIAL JOURNEYIA BASE COMPLIANCE AUDITOR R [employer]-[id number] Right 1 Implanted CHG PATELLA GII OVAL RESURFACI - [id number] CHG PATELLA GII OVAL RESURFACI [employer]-[id number] Right 1 Implanted INSERT XLPE LEGION CRDD W/MINO LCK SZ3-4/11MM - [id number] INSERT XLPE LEGION CRDD W/MINO LCK SZ3-4/11MM [employer]-[id number] Right 1 Implanted Specimen: No specimens collected during this procedure. Narrative: There was no qualified resident for this case. Alfredo Gonzales PA-C was the photographer assistant. This assistance was medically necessary in helping with exposure, holding retractors, and assistingwith closure of wound. Procedure: Right total knee replacement Computer assisted surgical navigation, imageless INDICATIONS FOR PROCEDURE: The patient had difficulty with daily activities and had failed all conservative management for this right knee. Options were discussed. The patient desired total knee arthroplasty understanding the risks to include, but are not be limited to: loss of life, loss of limb, need for further surgery, nonunion, malunion, infection, nerve and vessel injury, leg length discrepancy, stiffness, and thromboembolic complication. Informed consent was obtained. DESCRIPTION OF PROCEDURE: The patient was transferred to the operative suite after appropriate preoperative preparation and site marking. Preoperative intravenous antibiotics and tranexamic acid wereadministered as indicated. Anesthesia was induced. The right knee was prepared in the usual sterilefashion, draped in the usual sterile fashion and incision marked. The tourniquet was inflated to 300 mmhg. Incision was made in the midline. Medial parapatellar approach was utilized. The fat pad wasremoved, patella was everted, and gentle medial dissection was performed along the proximal tibia. Eburnated bone was noted in more than one compartment. The knee was flexed and the distal femoral cut was performed using the [employer] Imageless Navigation. The pin was placed to the distal femur and the navigation unit was then attached. The alignment was set at 2 degrees for flexion and for 1 degree varus to the mechanical axis of the leg. The distal femoral cutting block was then pinned to the distal femur and cut was performed. Bone cuts were removed and the sizing guide was utilized and showed the listed size above was appropriate size. The finishing cutting guide was then utilized with the axis set at 3 degrees external based on the epicondylar axis. The finishing cuts were made with the soft tissue protected, bone fragments were removed, and remaining femoral osteophytes were removed. Next, the knee was maximally flexed and the posterior cruciate retractor was utilized to retract the tibia forward and the remainingmenisci were removed. The extra medullary tibial guide was placed in line with the tibia and was used to cut the tibia at the appropriate depth and slope based on preoperative planning. Soft tissues w ere protected throughout the cuts. The bone fragments were removed and tibial osteophytes were removed. The baseplate trial was then placed in appropriate rotation with the guide just at the medial one third of the tibial tubercle and the punch and peg were used. A lamina baby formula worker was used to evaluate the flexion gap equality and posterior cruciate ligament integrity and the posterior osteophyteswere removed in their entirety along with any other posterior debris. After the osteophytes were removed, a small posterior release was performed. Trialing was performed, and after appropriate soft tissue balancing showed there was excellent equality of flexion/extension gaps and excellent varus valgus stability throughout a range of motion with the above size spacer. The patella was then treatedas indicated above and instruments based on the amount of patellar wear. Next, the patellar tracking was seen to be excellent with no thumbs. A lateral release was not necessary. Next, thorough irrigation was performed and the final implants were tapped and cemented into place using palacos cement.Excess cement was removed and cement was allowed to cure completely.The intra-articular injection was then performed in the pericapsular tissues and the final spacer was placed. This snapped in quitenicely and, again, motions were excellent and stability was excellent throughout a range of motion from 0 to 125 degrees. Thorough irrigation was performed and the wound was closed using #1 Vicryl sutures in the parapatellar approach, 2-0 Vicryl sutures in the subcutaneous skin, and 3-0 V-loc used in the cutaneous skin. Dermabond prineo was used for wound sealant and sterile dressings were applied when the Dermabond was dry. The patient was awakened and transferred to recovery room in stable condition. PLAN: The patient will be weightbearing as tolerated on the operative lower extremity. Standard postoperative knee replacement protocols will be followed. I was present for all bhat portions of the procedure which included but were not limited to bone cuts and hardware placement. Submitted by: Jens Carbone MD-04/21/2025-2:52 PM * Progress Notes - Jens Carbone MD - 04/21/2025 10:59 AM EDT Pre-operative H and P Chief Complaint: Right knee pain History of Present Illness: Radha Lee is a 79 y.o. female presenting with above complaint and was evaluated and deemed a candidate for surgery based on history and physical exam previously. Past Medical History: has a past medical history of Anxiety disorder, unspecified, GERD (gastroesophageal reflux disease), Hyperlipidemia, Hypertension, Personal history of other diseases of the digestive system, and Personal history of other endocrine, nutritional and metabolic disease. Surgical History: has a past surgical history that includes Cholecystectomy (N/A); Tubal ligation (N/A); Laparoscopicgastric banding (N/A); and Total knee arthroplasty (Left). Family History: Family History Problem Relation Name Age of Onset ??? Cardiac disorder Other ??? Stroke Other ??? Diabetes Other ??? Hypertension Other ??? Other cancer Other ??? Heart attack Other ??? Anesthesia problems Neg Hx ??? Malig Hyperthermia Neg Hx Social History: reports that she has never smoked. She has never used smokeless tobacco. She reports that she does not drink alcohol and does not use drugs. Allergies: Cephalexin, Morphine, Phenobarbital, Tetracyclines & related, Amoxicillin, Clarithromycin, Diphenhydramine, Loratadine-pseudoephedrine er, and Trimethoprim Medications: Current Facility-Administered Medications Medication Dose Route Frequency Provider Last Rate Last Admin ??? acetaminophen (Tylenol) tablet 1,000 mg 1,000 mg Oral Once Alfredo Gonzales PA ??? aztreonam (Azactam) injection 2 g 2 g Intravenous Once Alfredo Gonzales PA ??? lactated Ringer's infusion 75 mL/hr Intravenous Continuous Beni Oh MD ??? lidocaine (Xylocaine) 1 % injection 0.5 mL 0.5 mL Injection Once PRN Beni Oh MD ??? oxyCODONE (Roxicodone) immediate release tablet 5 mg 5 mg Oral Once Alfredo Gonzales PA ??? Povidone-Iodine 5 % swab solution 1 Application 1 Application Nasal Once Alfredo Gonzales PA ??? sodium chloride 0.9 % flush 10 mL 10 mL Intravenous q12h Beni Oh MD And ??? sodium chloride 0.9 % flush 10 mL 10 mL Intravenous PRN Beni Oh MD ??? sodium chloride 0.9 % flush 10 mL 10 mL Intravenous q8h PRN Alfredo Gonzales PA And ??? sodium chloride 0.9 % flush 10 mL 10 mL Intravenous PRN Alfredo Gonzales PA ??? tranexamic acid (Cyklokapron) IVPB 1,000 mg 1,000 mg Intravenous Once Alfredo Gonzales PA ??? tranexamic acid (Cyklokapron) IVPB 1,000 mg 1,000 mg Intravenous Once Alfredo Gonzales PA ??? vancomycin in NS (Vancocin) IVPB 1,250 mg 15 mg/kg Intravenous Once Alfredo Gonzales PA Review of systems: negative other than above Physical exam: Last recorded vitals: Weight 83.5 kg (184 lb 1.4 oz). refer to nursing notes General: no apparent distress HEENT: speaks clearly, eyes open CV: perfused Respiratory: moves air well Ext: Right knee effusion Skin: intact Refer to anesthesiology H and P for other pertinent physical findings related to surgical preparedness. Assessment/Plan: Primary osteoarthritis of right knee Procedure(s) (LRB): ARTHROPLASTY, KNEE, TOTAL (Right) documented in this encounter Plan of Treatment Upcoming Encounters Date Type Department Care Team (Late st Contact Info) Description 06/08/2025 3:20 PM EDT Office Visit Medical Office Building [facility] [address] [facility] [address] [facility], [address] [place] [address] Jens Carbone MD [address] [place] [address] 08/24/2025 3:00 PM EDT Ovarian Cancer Screening [facility] [address] [place] [address] Scheduled Referrals Name Type Priority Associated Diagnoses Orde r Schedule Discharge Ambulatory referral to Physical Therapy Outpatient Referral Routine Primary osteoarthritis of right knee 1 Occurrences starting 04/23/2025 until 10/25/2026 documented as of this encounter Procedures Procedure Name Priority Date/Time Associated Diagnosis Comments BASIC METABOLIC PANEL, PLASMA Routine 04/22/2025 2:09 AM EDT POCT GLUCOSE METER UNSOLICITED RESULTS Routine 04/21/2025 3:33 PM EDT XR KNEE RIGHT 1 OR 2 VIEWS Routine 04/21/2025 2:30 PM EDT OR TOTAL KNEE ARTHROPLASTY 04/21/2025 11:43 AM EDT Primary osteoarthritis of right knee documented in this encounter Results * (ABNORMAL) Basic metabolic panel (04/22/2025 2:09 AM EDT) Glucose, Plasma 104(H) 74 - 99 mg/dL 04/22/2025 3:39 AM EDT [facility] BUN, Plasma 10 8 - 23 mg/dL 04/22/2025 3:39 AM EDT [facility] Creatinine, Plasma 0.78 0.60 - 1.10 mg/dL 04/22/2025 3:39 AM EDT [facility] BUN/Creatinine Ratio 13 04/22/2025 3:39 AM EDT [facility] Sodium, Plasma 132(L) 136 - 145 mmol/L 04/22/2025 3:39 AM EDT [facility] Potassium, Plasma 4.0 3.6 - 4.9 mmol/L 04/22/2025 3:39 AM EDT [facility] Chloride, Plasma 99 97 - 107 mmol/L 04/22/2025 3:39 AM EDT [facility] CO2, Plasma 23 22 - 29 mmol/L 04/22/2025 3:39 AM EDT [facility] Anion Gap 10 6 - 16 mmol/L 04/22/2025 3:39 AM EDT [facility] Total Calcium, Plasma 8.3(L) 8.9 - 10.2 mg/dL 04/22/2025 3:39 AM EDT [facility] eGFRcr 78.3 mL/min/1.7 3m*2 04/22/2025 3:39 AM EDT [facility] Comment:Reported eGFRcr in m L/min/1.73m2 is based the CKD-EPI 2020 equation that does not use a race coefficient. Blood Venous blood specimen / Unknown Venipuncture / Unknown 04/22/2025 2:09 AM EDT 04/22/2025 3:13 AM EDT us Eliza Zaidi APRN LAB BLOOD ORDERABLES Final Re sult Performing Organization Address City/[facility]/ZIP Co de Phone Number [facility] [address] [place] [address] * (ABNORMAL) POCT glucose meter (04/21/2025 3:33 PM EDT) POCT Glucose 114(H) 74 - 99 mg/dL 04/21/2025 3:34 PM EDT [facility] Comment:Accuracy of a glucos e result obtained from a capillary whole blood specimen relies upon adequate, non-compromised capillary blood flow. If the capillary glucose result is not consistent with the patient's clinical signs and symptoms, glucose testing should be repeated with either an arterial or venous sample on the glucometer or sent to the main labortory for testing. Comment 04/21/2025 3:34 PM EDT [facility] Electrical Engineering Manager ID Rut Gloria 04/21/20 3:34 PM EDT [facility] Device ID [id number] 04/21/2025 3:34 PM EDT [facility] Specimen Type POC Capillary 04/21/2025 3:34 PM EDT [facility] Blood Capillary blood specimen / Unknown 04/21/2025 3:33 PM EDT 04/21/2025 3:34 PM EDT us Jens Carbone MD LAB POINT OF CARE TE ST DOCKED DEVICE UNSOLICITED RESULTS Final Result Performing Organization Address City/[facility]/ZIP Co de Phone Number [facility] [address] [place] [address] * XR Knee Right 1 or 2 Views (04/21/2025 2:30 PM EDT) Anatomical Region Laterality Modality Lower Extremities, Knee Right Digital Radiography Impressions 04/21/2025 4:15 PM EDT Expected postoperative appearance following total knee arthroplasty. CRITICAL RESULT: No. COMMUNICATION: Per this written report. Drafted by Zeinab Mota MD on 04/21/2025 3:44 PM Final report signed by Zeinab Mota MD on 04/21/2025 4:15 PM Narrative 04/21/2025 4:15 PM EDT CLINICAL INDICATION: TKA TECHNIQUE: XR KNEE RIGHT 1 OR 2 VIEWS COMPARISON: Radiographs from 04/13/2025 FINDINGS: Interval total knee arthroplasty with patellar resurfacing. There is expected postoperative soft tissue edema and emphysema. No acute fracture or dislocation. Procedure Note Zeinab Mota MD - 04/21/2025 CLINICAL INDICATION: TKA TECHNIQUE: XR KNEE RIGHT 1 OR 2 VIEWS COMPARISON: Radiographs from 04/13/2025 FINDINGS: Interval total knee arthroplasty with patellar resurfacing. There isexpected postoperative soft tissue edema and emphysema. No acute fractureor dislocation. IMPRESSION: Expected postoperative appearance following total knee arthroplasty. CRITICAL RESULT: No. COMMUNICATION: Per this written report. Drafted by Zeinab Mota MD on 04/21/2025 3:44 PM Final report signed by Zeinab Mtoa MD on 04/21/2025 4:15 PM Jens Carbone MD IMG XR PROCEDURES Final Resul t documented in this encounter Visit Diagnoses Diagnosis Primary osteoarthritis of right knee- Primary Primary osteoarthritis of right knee documented in this encounter Admitting Diagnoses Diagnosis Primary osteoarthritis of right knee Primary osteoarthritis of one knee, right documented in this encounter Administered Medications Inactive Administered Medications - up to 3 most recent administrations Medication Order MAR Action Action Date Dose Rate Site acetaminophen (Tylenol) tablet 1,000 mg 1,000 mg, Oral, Every 8 hours scheduled, First dose on Sun04/21/25 at 1545, Until Discontinued, Routine, Recovery(Phase II-Outpatient)/On Unit(Inpatient) Given 04/23/2025 5:50 AM EDT 1,000 mg Given 04/22/2025 10:48 PM EDT 1,000 mg Given 04/22/2025 1:17 PM EDT 1,000 mg acetaminophen (Tylenol) tablet 1,000 mg 1,000 mg, Oral, Once, 1 dose, On Sun04/21/25 at 1045, Routine, Holding - Preprocedure Given 04/21/2025 11:31 AM EDT 1,000 mg acidophilus probiotic blend capsule 1 capsule 1 capsule, Oral, Daily, First dose on Sun04/22/25 at 0900, Until Discontinued, Routine Given 04/23/2025 9:22 AM EDT 1 capsule Given 04/22/2025 8:39 AM EDT 1 capsule ALPRAZolam (Xanax) tablet 0.5 mg 0.5 mg, Oral, 3 times daily, First dose on Sun04/21/25 at 1700, Until Discontinued, Routine Given 04/23/2025 9:22 AM EDT 0.5 mg Given 04/22/2025 8:33 PM EDT 0.5 mg Given 04/22/2025 4:53 PM EDT 0.5 mg aspirin chewable tablet 81 mg 81 mg, Oral, 2 times daily, First dose on Sun04/22/25 at 0900, Until Discontinued, Routine, Recovery(Phase II-Outpatient)/On Unit(Inpatient) Given 04/23/2025 9:22 AM EDT 81 mg Given 04/22/2025 8:33 PM EDT 81 mg Given 04/22/2025 8:38 AM EDT 81 mg aztreonam (Azactam) 2 g in sodium chloride 0.9% 100 mL IVPB (vial adapter required) 2 g, Intravenous, Every 8 hours, 3 doses, First dose (after last modification) on Sun04/21/25 at 2000, Last dose on Sun04/22/25 at 1200, at 36.7 mL/hr, Administer over 3 Hours, Routine New Bag 04/22/2025 1:53 PM EDT 2 g 36.7 mL/hr New Bag 04/22/2025 4:34 AM EDT 2 g 36.7 mL/hr New Bag 04/21/2025 8:23 PM EDT 2 g 36.7 mL/hr bethanechol (Urecholine) tablet 20 mg 20 mg, Oral, Once as needed, 1 dose, Starting on Sun04/21/25 at 1457, Until Antonia 04/23/25 at 1506, Routine, Recovery(Phase II-Outpatient)/On Unit(Inpatient), other, post-op urinary retention bisacodyl (Dulcolax) suppository 10 mg 10 mg, Rectal, 2 times daily PRN, Starting on Sun04/21/25 at 1457, Until Antonia 04/23/25 at 1506, Routine, Recovery(Phase II-Outpatient)/On Unit(Inpatient), constipation, for constipation - use if no bowel movement after giving magnesium hydroxide calcium-vitamin D 500-200 MG-UNIT per tablet 1 tablet 1 tablet, Oral, 2 times daily with meals, First dose on Sun04/21/25 at 2100, Until Discontinued, Routine, Recovery(Phase II-Outpatient)/On Unit(Inpatient) Given 04/23/2025 7:58 AM EDT 1 tablet Given 04/22/2025 4:53 PM EDT 1 tablet Given 04/22/2025 8:39 AM EDT 1 tablet HYDROmorphone (Dilaudid) injection 0.5 mg 0.5 mg, Intravenous, Every 6 hours PRN, Starting on Sun04/21/25 at 1457, Until Sun04/23/25 at 1506, Routine, Recovery(Phase II-Outpatient)/On Unit(Inpatient), severe pain, pain score 9-10 Given 04/22/2025 10:47 PM EDT 0.5 mg Given 04/22/2025 1:44 AM EDT 0.5 mg ketorolac (Toradol) injection 15 mg 15 mg, Intravenous, Every 8 hours, 6 doses, First dose on Sun04/21/25 at 1615, Last dose on Sun04/23/25 at 0815, Routine Given 04/23/2025 7:58 AM EDT 15 mg Given 04/22/2025 11:15 PM EDT 15 mg Given 04/22/2025 4:53 PM EDT 15 mg lactated Ringer's infusion 50 mL/hr, Intravenous, Continuous, Starting on Sun04/21/25 at 1545, Until Sun04/22/25 at 1541, Routine New Bag 04/21/2025 3:42 PM EDT 50 mL/ hr 50 mL/hr magnesium hydroxide (Milk of Magnesia) 400 MG/5ML suspension 30 mL 30 mL, Oral, 2 times daily PRN, Starting on Sun04/21/25 at 1457, Until Antonia 04/23/25 at 1506, Routine, Recovery(Phase II-Outpatient)/On Unit(Inpatient), constipation, for constipation - use as first line agent methocarbamol (Robaxin) tablet 500 mg 500 mg, Oral, 3 times daily PRN, Starting on Sun04/22/25 at 1127, Until Sun04/23/25 at 1506, Routine, muscle spasms Given 04/22/2025 8:33 PM EDT 500 mg ondansetron (Zofran) injection 4 mg 4 mg, Intravenous, Every 6 hours PRN, Starting on Sun04/21/25 at 1457, Until Antonia 04/23/25 at 1506, Routine, Recovery(Phase II-Outpatient)/On Unit(Inpatient), nausea, vomiting oxyCODONE (Roxicodone) immediate release tablet 5 mg 5 mg, Oral, Every 4 hours PRN, Starting on Sun04/21/25 at 1457, Until Antonia 04/23/25 at 1506, Routine, Recovery(Phase II-Outpatient)/On Unit(Inpatient), moderate pain, severe pain, Severe pain 5-8 Given 04/23/2025 9:22 AM EDT 5 mg Given 04/22/2025 11:58 PM EDT 5 mg Given 04/22/2025 6:12 PM EDT 5 mg oxyCODONE (Roxicodone) immediate release tablet 5 mg 5 mg, Oral, Once, 1 dose, On Sun04/21/25 at 1045, Routine, Holding - Preprocedure Given 04/21/2025 11:31 AM EDT 5 mg pancrelipase (Zenpep) 3000 units capsule 2 capsule, Oral, 3 times daily with meals, First dose on Sun04/21/25 at 1700, Until Discontinued, Routine Given 04/21/2025 5:30 PM EDT 2 capsules pancrelipase (Zenpep) 40,000 units capsule 2 capsule, Oral, 3 times daily with meals, First dose on Sun04/22/25 at 1230, Until Discontinued, Routine Given 04/23/2025 11:40 AM EDT 2 capsule s Given 04/23/2025 8:05 AM EDT 2 capsules Given 04/22/2025 4:53 PM EDT 2 capsules pancrelipase (Zenpep) 40,000 units capsule 1 capsule, Oral, As needed, Starting on Sun04/22/25 at 1057, Until Sun04/23/25 at 1506, Routine, snacks, with snacks pantoprazole (Protonix) EC tablet 40 mg 40 mg, Oral, Daily before breakfast, First dose on Sun04/21/25 at 1545, Until Discontinued, Routine, Recovery(Phase II-Outpatient)/On Unit(Inpatient) Given 04/23/2025 7:58 AM EDT 40 mg Given 04/22/2025 8:38 AM EDT 40 mg Given 04/21/2025 3:44 PM EDT 40 mg polyethylene glycol (Miralax) packet 17 g 17 g, Oral, Daily with breakfast, First dose on Sun04/22/25 at 0800, Until Discontinued, Routine, Recovery(Phase II-Outpatient)/On Unit(Inpatient) Given 04/23/2025 7:59 AM EDT 17 g Povidone-Iodine 5 % swab solution 1 Application Nasal, Once, 1 dose, On Sun04/21/25 at 1045, Routine Given 04/21/2025 11:33 AM EDT 1 Application senna-docusate (Glenis-Colace) 8.6-50 MG per tablet 2 tablet 2 tablet, Oral, Nightly, First dose on Sun04/21/25 at 2100, Until Discontinued, Routine, Recovery(Phase II-Outpatient)/On Unit(Inpatient) traMADol (Ultram) tablet 50 mg 50 mg, Oral, Every 8 hours, First dose on Sun04/21/25 at 1615, Until Discontinued, Routine Given 04/23/2025 7:58 AM EDT 50 mg Given 04/22/2025 11:15 PM EDT 50 mg Given 04/22/2025 4:53 PM EDT 50 mg vancomycin in NS (Vancocin) IVPB 1,250 mg 1,250 mg (rounded from 1,266 mg = 15 mg/kg 84.4 kg), Intravenous, Once, 1 dose, On Sun04/21/25 at 1045, at 200 mL/hr, STAT New Bag 04/21/2025 11:32 AM EDT 1,250 mg 200 mL/hr documented in this encounter Active and Recently Administered Medications Times are shown in EDT. Scheduled Medication Order 04/21/2025 04/22/2025 04/23/2025 acetaminophen (Tylenol) tablet 1,000 mg 1,000 mg, Oral, Every 8 hours scheduled, First dose on Sun04/21/25 at 1545, Until Discontinued, Routine, Recovery(Phase II-Outpatient)/On Unit(Inpatient) 1544 (Given - Provider: Margret Yousif RN)2137 (Given - Provider: Bin Hernandez, VANESSA) 0517 (Given - Provider: Bin Hernandez RN)1317 (Given - Provider: Margret Yousif RN)2248 (Given - Provider: Bin Hernandez RN) 0550 (Given - Provider: Bin Hernandez RN)1400 (Canceled Entry - Provider: Automatic Discharge Provider - Comment: Automatically canceled at discontinue of medication order) acetaminophen (Tylenol) tablet 1,000 mg (COMPLETED) 1,000 mg, Oral, Once, 1 dose, On Sun04/21/25 at 1045, Routine, Holding - Preprocedure 1131 (Given - Provider: Elva Fish RN) acidophilus probiotic blend capsule 1 capsule 1 capsule, Oral, Daily, First dose on Sun04/22/25 at 0900, Until Discontinued, Routine 0839 (Given - Provider: Margret Yousif RN) 0922 (Given - Provider: Sherron Marin RN) ALPRAZolam (Xanax) tablet 0.5 mg 0.5 mg, Oral, 3 times daily, First dose on Sun04/21/25 at 1700, Until Discontinued, Routine 1756 (Given - Provider: Margret Yousif RN)2023 (Given - Provider: Bin Hernandez RN) 0838 (Given - Provider: Margret Yousif RN)1653 (Given - Provider: Margret Yousif RN)203 (Given - Provider: Bin Hernandez, VANESSA) 0922 (Given - Provider: Sherron Marin RN) aspirin chewable tablet 81 mg 81 mg, Oral, 2 times daily, First dose on Sun04/22/25 at 0900, Until Discontinued, Routine, Recovery(Phase II-Outpatient)/On Unit(Inpatient) 08 (Given - Provider: Margret Yousif RN)2032 (Given - Provider: Bin Hernandez RN) 0922 (Given - Provider: Sherron Marin, RN) aztreonam (Azactam) 2 g in sodium chloride 0.9% 100 mL IVPB (vial adapter required) (COMPLETED) 2 g, Intravenous, Every 8 hours, 3 doses, First dose (after last modification) on Sun04/21/25 at 2000, Last dose on Sun04/22/25 at 1200, at 36.7 mL/hr, Administer over 3 Hours, Routine 2022 (New Bag - Provider: Bin Hernandez RN) 0434 (New Bag - Provider: Bin eHrnandez RN)1353 (New Bag - Provider: Margret Yousif RN) aztreonam (Azactam) injection 2 g (COMPLETED) 2 g, Intravenous, Once, 1 dose, On Sun04/21/25 at 1045, Routine, Anesthesia Intraprocedure 1208 (Given - Provider: Luis Corbett, TIME CLOCK MECHANIC, DNP) calcium-vitamin D 500-200 MG-UNIT per tablet 1 tablet 1 tablet, Oral, 2 times daily with meals, First dose on Sun04/21/25 at 2100, Until Discontinued, Routine, Recovery(Phase II-Outpatient)/On Unit(Inpatient) 2022 (Given - Provider: Bin Hernandez RN) 0839 (Given - Provider: Margret Yousif RN)165 (Given - Provider: Margret Yousif RN) 0758 (Given - Provider: Sherron Marin, RN) ketorolac (Toradol) injection 15 mg (COMPLETED) 15 mg, Intravenous, Every 8 hours, 6 doses, First dose on Sun04/21/25 at 1615, Last dose on Sun04/23/25 at 0815, Routine 1552 (Given - Provider: Margret Yousif RN)2315 (Given - Provider: Bin Hernandez RN) 0839 (Given - Provider: Margret Yousif RN)165 (Given - Provider: Margret Yousif RN)2315 (Given - Provider: Bin Hernandez, VANESSA) 0758 (Given - Provider: Sherron Marin, RN) oxyCODONE (Roxicodone) immediate release tablet 5 mg (COMPLETED) 5 mg, Oral, Once, 1 dose, On Sun04/21/25 at 1045, Routine, Holding - Preprocedure 1131 (Given - Provider: Elva Fish, VANESSA) pancrelipase (Zenpep) 3000 units capsule (CANCELED) 2 capsule, Oral, 3 times daily with meals, First dose on Sun04/21/25 at 1700, Until Discontinued, Routine 1730 (Given - Provider: Margret Yousif RN) 0844 (Not Given - Provider: Margret Yousif RN - Reason: Patient/family refused - Comment: informed Dr Ruby and pharmacist that pt was concerned we arent bringing her home dose and declined our dose and took her own zenpep from home) pancrelipase (Zenpep) 40,000 units capsule 2 capsule, Oral, 3 times daily with meals, First dose on Sun04/22/25 at 1230, Until Discontinued, Routine 1130 (Given - Provider: Margret Yousif RN)1653 (Given - Provider: Margret Yousif RN) 0805 (Given - Provider: Sherron Marin, VANESSA)1140 (Given - Provider: Sherron Marin, RN) pantoprazole (Protonix) EC tablet 40 mg 40 mg, Oral, Daily before breakfast, First dose on Sun04/21/25 at 1545, Until Discontinued, Routine, Recovery(Phase II-Outpatient)/On Unit(Inpatient) 1544 (Given - Provider: Margret Yousif RN) 0838 (Given - Provider: Margret Yousif RN) 0758 (Given - Provider: Sherron Marin, RN) polyethylene glycol (Miralax) packet 17 g 17 g, Oral, Daily with breakfast, First dose on Sun04/22/25 at 0800, Until Discontinued, Routine, Recovery(Phase II-Outpatient)/On Unit(Inpatient) 0837 (Not Given - Provider: Margret Yousif RN - Reason: Patient/family refused) 0759 (Given - Provider: Sherron Marin, RN) Povidone-Iodine 5 % swab solution 1 Application (COMPLETED) Nasal, Once, 1 dose, On Sun04/21/25 at 1045, Routine 1133 (Given - Provider: Elva Fish, VANESSA) senna-docusate (Glenis-Colace) 8.6-50 MG per tablet 2 tablet 2 tablet, Oral, Nightly, First dose on Sun04/21/25 at 2100, Until Discontinued, Routine, Recovery(Phase II-Outpatient)/On Unit(Inpatient) 2104 (Not Given - Provider: Bin Hernandez RN - Reason: Patient/family refused) 2034 (Not Given - Provider: Bin Hernandez RN - Reason: Order parameters not met) traMADol (Ultram) tablet 50 mg 50 mg, Oral, Every 8 hours, First dose on Sun04/21/25 at 1615, Until Discontinued, Routine 1552 (Given - Provider: Margret Yousif RN)2315 (Given - Provider: Bin Hernandez RN) 0838 (Given - Provider: Margret Yousif RN)1653 (Given - Provider: Margret Yousif RN)2315 (Given - Provider: Bin Hernandez RN) 0758 (Given - Provider: Sherron Marin RN) tranexamic acid (Cyklokapron) IVPB 1,000 mg (COMPLETED) 1,000 mg, Intravenous, Once, 1 dose, On Sun04/21/25 at 1045, Routine, Holding - Preprocedure 1211 (Given - Provider: Luis Corbett CRNA, DNP) tranexamic acid (Cyklokapron) IVPB 1,000 mg (COMPLETED) 1,000 mg, Intravenous, Once, 1 dose, On Sun04/21/25 at 1045, Routine, Holding - Preprocedure 1308 (Given - Provider: Luis Corbett CRNA, DNP) vancomycin in NS (Vancocin) IVPB 1,250 mg (COMPLETED) 1,250 mg (rounded from 1,266 mg = 15 mg/kg 84.4 kg), Intravenous, Once, 1 dose, On Sun04/21/25 at 1045, at 200 mL/hr, STAT 1132 (New Bag - Provider: Elva Fish, VANESSA) Continuous Medication Order 04/21/2025 04/22/2025 04/23/2025 lactated Ringer's infusion (CANCELED) 75 mL/hr, Intravenous, Continuous, Starting on Sun04/21/25 at 1045, Until Tu04/21/25 at 1331, Routine 1156 (New Bag - Provider: Luis Corbett CRNA, DNP)1330 (Stopped - Provider: Luis Corbett CRNA, DNP) lactated Ringer's infusion () 50 mL/hr, Intravenous, Continuous, Starting on Sun04/21/25 at 1545, Until Sun04/22/25 at 1541, Routine 1542 (New Bag - Provider: Margret Yousif, VANESSA) 1833 (Stopped - Provider: Margret Yousif RN) PRN Medication Order 04/21/2025 04/22/2025 04/23/2025 bethanechol (Urecholine) tablet 20 mg 20 mg, Oral, Once as needed, 1 dose, Starting on Sun04/21/25 at 1457, Until Antonia 04/23/25 at 1506, Routine, Recovery(Phase II-Outpatient)/On Unit(Inpatient), other, post-op urinary retention bisacodyl (Dulcolax) suppository 10 mg 10 mg, Rectal, 2 times daily PRN, Starting on Sun04/21/25 at 1457, Until Antonia 04/23/25 at 1506, Routine, Recovery(Phase II-Outpatient)/On Unit(Inpatient), constipation, for constipation - use if no bowel movement after giving magnesium hydroxide bupivacaine-EPINEPHrine PF (Marcaine w/EPI) 0.5% -[id number] injection (CANCELED) As needed, Starting on Sun04/21/25 at 1223, Until Sun04/21/25 at 1335, Routine, Intraprocedure 1223 (Given - Provider: Jens Carbone MD - Comment: right knee) HYDROmorphone (Dilaudid) injection 0.5 mg 0.5 mg, Intravenous, Every 6 hours PRN, Starting on Sun04/21/25 at 1457, Until Antonia 04/23/25 at 1506, Routine, Recovery(Phase II-Outpatient)/On Unit(Inpatient), severe pain, pain score 9-10 0144 (Given - Provider: Bin Hernandez RN)2049 (Return to [facility] - Provider: Bin Hernandez RN)2246 (Given - Provider: Bin Hernandez, VANESSA) magnesium hydroxide (Milk of Magnesia) 400 MG/5ML suspension 30 mL 30 mL, Oral, 2 times daily PRN, Starting on Sun04/21/25 at 1457, Until Antonia 04/23/25 at 1506, Routine, Recovery(Phase II-Outpatient)/On Unit(Inpatient), constipation, for constipation - use as first line agent methocarbamol (Robaxin) tablet 500 mg 500 mg, Oral, 3 times daily PRN, Starting on Sun04/22/25 at 1127, Until Antonia 04/23/25 at 1506, Routine, muscle spasms 2032 (Given - Provider: Bin Hernandez RN) ondansetron (Zofran) injection 4 mg 4 mg, Intravenous, Every 6 hours PRN, Starting on Sun04/21/25 at 1457, Until Antonia 04/23/25 at 1506, Routine, Recovery(Phase II-Outpatient)/On Unit(Inpatient), nausea, vomiting oxyCODONE (Roxicodone) immediate release tablet 5 mg 5 mg, Oral, Every 4 hours PRN, Starting on Sun04/21/25 at 1457, Until Antonia 04/23/25 at 1506, Routine, Recovery(Phase II-Outpatient)/On Unit(Inpatient), moderate pain, severe pain, Severe pain 5-8 1544 (Given - Provider: Margret Yousif RN)2022 (Given - Provider: Bin Hernandez RN) 1317 (Given - Provider: Margret Yousif RN)1812 (Given - Provider: Margret Yousif RN)2358 (Given - Provider: Bin Hernandez RN) 0922 (Given - Provider: Sherron Marin RN) pancrelipase (Zenpep) 40,000 units capsule 1 capsule, Oral, As needed, Starting on Sun04/22/25 at 1057, Until Antonia 04/23/25 at 1506, Routine, snacks, with snacks documented in this encounter Additional Health Concerns Assessment Noted Time A fall risk assessment has been complete d for the patient 04/13/2025 1:20 PM EDT A Body Mass Index follow-up plan has been documented for the patient 04/23/2025 12:05 PM EDT documented as of this encounter Care Teams Garage Helper Relationship Specialty Start Date End Date Ronald Roca MD [address] [place] [address] PCP - General 03/11/21 documented as of this encounter
--- OUTSIDE RECORDS SUMMARY | 2025-04-21 11:56 | XMS_ITS | Encounter Summary ---
Author Organization Healthcare Address [address] [place] [address] Care Team Providers Care Manager Talent Management Name Role Phone Ronald Roca MD Primary Care Provider [phone] Reason for Visit * Auth/Cert (Routine) Specialty Diagnoses / Procedures Referred By Contac t Referred To Contact Diagnoses Primary osteoarthritis of right knee Primary osteoarthritis of right knee [M17.11] Procedures ME TOTAL KNEE ARTHROPLASTY ARTHROPLASTY, KNEE, TOTAL Jens Carbone MD [address] [facility] [address] [place] [address] Phone: tel: fax: [facility] Operating Room [address] [place] [address] Phone: tel: Referral ID Status Reason Start Date Expiration Date Visits Re quested Visits Authorized [id number] 1 1 Encounter Details Date Type Department Care Team (Late st Contact Info) Description 04/21/2025 11:56 AM EDT Anesthesia Event [facility] Operating Room [address] [place] [address] Luis Corbett CRNA, DNP [address] [place] [address] Beni Oh MD [address] [place] [address] Anesthesia Record Procedure Summary Procedure Name Responsible Anesthesiologist Anesthesia Start Time Anesthesia Stop Time ARTHROPLASTY, KNEE, TOTAL (Right: Knee) Luis Corbett CRNA, DNP 04/21/25 1156 04/21/25 1341 Events Date [...] acknowledgement of understanding. 1341 An Stop Meds Name Total propofol (Diprivan) injection 10 mg/mL 2 0 mg propofol (Diprivan) infusion 10 mg/mL 26 3.03 mg ondansetron (Zofran) injection 2 mg/mL 4 mg fentaNYL (SUBLIMAZE) 100 mcg bupivacaine in dextrose (MARCAINE SPINAL ) 0.75-8.25 % 1.7 mL aztreonam (Azactam) injection 2 g 2 g tranexamic acid (Cyklokapron) IVPB 1,000 mg 1,000 mg tranexamic acid (Cyklokapron) IVPB 1,000 mg 1,000 mg lactated Ringer's infusion 500 mL * Agents Name O2 * Blood No blood administrations on file. Lines, Drains, and Airways Type Details Placement Removal Wound 04/21/25; 1225; N; Y es; Surgical; Knee; Anterior, Right 04/21/25 1225 by Leandro Smith, VANESSA Peripheral IV Placement Date: 03/30 02/20; Placement [...] on file documented as of this encounter Functional Status * Calculated C-SSRS Risk Score (Lifetime/Recent) Answer Date of Assessment Author No Risk Indicated 04/21/2025 8:23 PM EDT Bin Hernandez RN * Question Answer Date of Assessment Author 1. Wish to be (Past 1 Month) No 025 8:23 PM EDT Bin Hernandez RN 2. Non-Specific Active Suici shahab Thoughts (Past 1 Month) No 04/21/2025 8:23 PM EDT Fadi Hernandez ea, RN 6. Suicidal Behavior (Lifetime) No 8:23 PM EDT Bin Hernandez RN documented as of this encounter Miscellaneous Notes * Anesthesia Postprocedure Evaluation - Luis Corbett CRNA, DNP - 04/21/2025 1:42 PM EDT Patient: Radha Lee Anesthesia Type: spinal, general Vitals Value Taken Time BP 99/46 04/21/25 13:38 Temp 98.8 04/21/25 13:42 Pulse 83 04/21/25 13:40 Resp 18 04/21/25 13:40 SpO2 98 % 04/21/25 13:40 Vitals shown include unfiled device data. Anesthesia Post Evaluation Patient location during evaluation: PACU Patient participation: complete - patient participated Level of consciousness: awake Pain management: adequate (pain score 0-3) Airway patency: natural airway Cardiovascular status: acceptable, blood pressure returned to baseline and hemodynamically stable Respiratory status: nasal cannula, acceptable, nonlabored ventilation and spontaneous ventilation Hydration status: acceptable Nausea/Vomiting: No No notable events documented. * Anesthesia Procedure Notes - Harris Babin MD - 04/21/2025 11:45 AM EDT Associated Order(s): Spinal Block Spinal Block Patient location during procedure: pre-op Start time: 04/21/2025 11:42 AM End time: 04/21/2025 11:46 AM Reason for block: post-op pain management Block is at surgeon's request Staffing Performed: Resident Anesthesiologist: Beni Oh MD Resident: Harris Babin MD Preanesthetic Checklist Completed: patient identified, IV checked, site marked, risks and benefits discussed, surgical consent, monitors and equipment checked, pre-op evaluation and timeout performed Spinal Block Patient position: sitting Prep: ChloraPrep Approach: midline Location: L4-5 Injection technique: single-shot Needle Needle type: pencil-point Needle gauge: 25 G Needle length: 3.5 in Medications Administered fentaNYL (SUBLIMAZE) - Intravenous 100 mcg - 04/21/2025 11:42:00 AM bupivacaine in dextrose (MARCAINE SPINAL) 0.75-8.25 % - Intrathecal 1.7 mL - 04/21/2025 11:42:00 AM Assessment Sensory level: adequate Events: cerebrospinal fluid Cosigned by Beni Oh MD at 04/22/2025 6:48 AM EDT Associated attestation - Beni Oh MD - 04/22/2025 6:48 AM EDT I was present during all critical and bhat portions of the procedure(s) and immediately available [facility] services the entire duration. See resident note for details. * Anesthesia Preprocedure Evaluation - Bryan Carver MD - 04/21/2025 10:57 AM EDT Images from the original note were [...] Medications[6] ROS Anesthesia: Date of last anesthetic: Good Holden knee replacement No GA issues. history of previous anesthesia. Does not have a history of anesthetic complications, obstructive sleep apnea and PONV. Cardiovascular: Does not have angina, CAD, CHF, dyspnea, dysrhythmias, orthopnea, past HI, PVD, syncope or valvularheart disease. Cardio additional [...] Does not have cervical spine limited mobility. [facility] additional comments: + Primary osteoarthritis of right [...] found for: INR , PROTIME Visit Vitals Wt 83.5 kg (184 lb 1.4 oz) BMI 30.63 kg/m?? OB Status Postmenopausal Smoking Status Never BSA 1.96 m?? 04/21/2025 9:51 AM Vitals Weight (kg) 83.5 kg BMI 30.63 kg/m2 BSA (m2) 1.96 m2 Cardiac clearance (media) OSH ECHO 07/21/24 Conclusions [...] with occasional ventricular premature complexes Physical Exam Airway Mallampati: II Mouth opening: normal TM distance: >3 FB Neck ROM: full Cardiovascular Rhythm: regular Rate: normal Dental (+) upper dentures Pulmonary Breath sounds clear to auscultation Neurological Oriented: normal to time, normal to place and normal to person and oriented to person, place and time Skin Skin: warm and dry Musculoskeletal Extremities Anesthesia Plan ASA 3 Plan was reviewed with: resident and attending Anesthesia technique(s) discussed with the patient/family: other, general, MAC and spinal Anesthesia plan agreed upon was: spinal Comment: PA-Emelyn phone screen Choice anesthesia Anesthetic plan and risks discussed with patient. Use of blood products discussed with patient who consented to blood products. Harris Babin MD [1] Past Medical History: Diagnosis Date Anxiety disorder, unspecified Anxiety GERD (gastroesophageal reflux disease) Hyperlipidemia Hypertension Personal history of other diseases [...] Procedure Laterality Date CHOLECYSTECTOMY N/A Cholecystotomy from [employer] LAPAROSCOPIC GASTRIC BANDING N/A Laparosc Gastric Restrictive Proc By Adjustable Gastric Band from [employer] TOTAL KNEE ARTHROPLASTY Left TUBAL LIGATION N/A Tubal Ligation from [employer] [5] Allergies Allergen Reactions Cephalexin Itching, Hives, [...] do not know rxn details [6] Current Facility-Administered Medications: acetaminophen aztreonam lactated Ringer's lidocaine oxyCODONE Povidone-Iodine sodium chloride AND sodium chloride Insert peripheral IV AND Saline lock IV AND sodium chloride AND sodium chloride tranexamic acid tranexamic acid vancomycin documented in this encounter Plan of Treatment Upcoming Encounters Date Type Department Care Team (Late st Contact Info) Description 06/08/2025 3:20 PM EDT Office Visit Medical Office Building [facility] [address], [address] [place] [address] Jens Carbone MD [address] [place] [address] 08/24/2025 3:00 PM EDT Ovarian Cancer Screening [facility] [address] [place] [address] documented as of this encounter Goals Goal Patient Goal Type Associated Problems Recent Progress Patient-Stated? Author Autogenerat ed Goal Care Plan Autogenerated Problem No Eboni Pyel documented as of this encounter Procedures Procedure Name Priority Date/Time Associated Diagnosis Comments PB ANESTHESIA NON-TIMED PROCEDURE PLACEHOLDER Routine 04/21/2025 11:42 AM EDT documented in this encounter Results * PB ANESTHESIA NON-TIMED PROCEDURE PLACEHOLDER (04/21/2025 11:42 AM EDT) Narrative Beni Oh MD - 04/21/2025 11:42 AM EDT Beni Oh MD 04/22/2025 6:48 AM Spinal Block Patient location during procedure: pre-op Start time: 04/21/2025 11:42 AM End time: 04/21/2025 11:46 AM Reason for block: post-op pain management Block is at surgeon's request Staffing Performed: Resident Anesthesiologist: Beni Oh MD Resident: Harris Babin MD Preanesthetic Checklist Completed: patient identified, IV checked, site marked, risks and benefits discussed, surgical consent, monitors and equipment checked, pre-op evaluation and timeout performed Spinal Block Patient position: sitting Prep: ChloraPrep Approach: midline Location: L4-5 Injection technique: single-shot Needle Needle type: pencil-point Needle gauge: 25 G Needle length: 3.5 in Medications Administered fentaNYL (SUBLIMAZE) - Intravenous 100 mcg - 04/21/2025 11:42:00 AM bupivacaine in dextrose (MARCAINE SPINAL) 0.75-8.25 % - Intrathecal 1.7 mL - 04/21/2025 11:42:00 AM Assessment Sensory level: adequate Events: cerebrospinal fluid us Beni Oh MD ANESTHESIA ORDERABLES Chelsi lashanda Result documented in this encounter Visit Diagnoses Not on filedocumented in this encounter Administered Medications Inactive Administered Medications - up to 3 most recent administrations Medication Order MAR Action Action Date Dose Rate Site aztreonam (Azactam) injection 2 g 2 g, Intravenous, Once, 1 dose, On e 04/21/25 at 1045, Routine, Anesthesia Intraprocedure Given 04/21/2025 12:08 PM EDT 2 g bupivacaine in dextrose (Marcaine Spinal) 0.75-8.25 % injection Intrathecal, Once PRN Procedure, Starting on Sun04/21/25 at 1142, Until Sun04/21/25 at 1142, Routine, Anesthesia Intraprocedure Given 04/21/2025 11:42 AM EDT 1.7 mL fentaNYL (Sublimaze) injection Intravenous, Once PRN Procedure, Starting on Sun04/21/25 at 1142, Until Sun04/21/25 at 1142, Routine, Anesthesia Intraprocedure Given 04/21/2025 11:42 AM EDT 100 mcg lactated Ringer's infusion 75 mL/hr, Intravenous, Continuous, Starting on Sun04/21/25 at 1045, Until Sun04/21/25 at 1331, Routine New Bag 04/21/2025 11:56 AM EDT ondansetron (Zofran) injection Intravenous, As needed, Starting on e 04/21/25 at 1310, Until 04/21/25 at 1341, Routine, Anesthesia Intraprocedure Given 04/21/2025 1:10 PM EDT 4 mg propofol (Diprivan) infusion 10 mg/mL Intravenous, Continuous PRN, Starting on Sun04/21/25 at 1202, Until Sun04/21/25 at 1331, Routine Rate/Dose Change 04/21/2025 1:02 PM EDT 25 mcg/kg/min 12.525 mL/hr Rate/Dose Change 04/21/2025 12:29 PM EDT 30 mcg/kg/min 15. 03 mL/hr Rate/Dose Change 04/21/2025 12:21 PM EDT 40 mcg/kg/min 20. 04 mL/hr propofol (Diprivan) injection Intravenous, As needed, Starting on Sun04/21/25 at 1206, Until Sun04/21/25 at 1341, Routine, Anesthesia Intraprocedure Given 04/21/2025 12:06 PM EDT 20 mg tranexamic acid (Cyklokapron) IVPB 1,000 mg 1,000 mg, Intravenous, Once, 1 dose, On Sun04/21/25 at 1045, Routine, Holding - Preprocedure Given 04/21/2025 12:11 PM EDT 1,000 mg tranexamic acid (Cyklokapron) IVPB 1,000 mg 1,000 mg, Intravenous, Once, 1 dose, On Sun04/21/25 at 1045, Routine, Holding - Preprocedure Given 04/21/2025 1:08 PM EDT 1,000 mg documented in this encounter Additional Health Concerns Active Problems Noted Date Diagnosed Date Autogenerated Problem 04/08/2025 Assessment Noted Time A fall risk assessment has been complete d for the patient 04/13/2025 1:20 PM EDT A Body Mass Index follow-up plan has been documented for the patient 04/23/2025 12:05 PM EDT documented as of this encounter Care Teams Manager Talent Management Relationship Specialty Start Date End Date Ronald Roca MD [address] [facility] [place] [address] PCP - General 03/11/21 documented as of this encounter
--- OUTSIDE RECORDS SUMMARY | 2025-04-21 12:30 | XMS_ITS | Encounter Summary ---
Author Organization Healthcare Address [address] [place] [address] Care Team Providers Care News Assistant Name Role Phone Ronald Roca MD Primary Care Provider [phone] Reason for Visit * Auth/Cert (Routine) Specialty Diagnoses / Procedures Referred By Contac t Referred To Contact Diagnoses Primary osteoarthritis of right knee Primary osteoarthritis of right knee [M17.11] Procedures OR TOTAL KNEE ARTHROPLASTY ARTHROPLASTY, KNEE, TOTAL Jens Carbone MD [address] [place] [address] Phone: tel: fax: [facility] S Operating Room [address] [place] [address] Phone: tel: Referral ID Status Reason Start Date Expiration Date Visits Re quested Visits Authorized [id number] 1 1 Encounter Details Date Type Department Care Team (Late st Contact Info) Description 04/21/2025 12:30 PM EDT - 04/21/2025 2:45 PM EDT Surgery [facility] S Operating Room [address] [place] [address] Jens Carbone MD [address] [place] [address] ARTHROPLASTY, KNEE, TOTAL [86572 (CPT )] Surgery Details Date/Time Status Location OR Service Patient Class Case Class Case Type Trauma Case? 04/21/2025 12:30 PM Posted [facility] 2SOR 01 Orthopedic Surgery Extended Recovery E-Electi ve Panel 1 Procedure LRB Anes Op Region Wound Class Comments ARTHROPLASTY, KNEE, TOTAL Right Spinal Knee Clas s I/ Clean Surgeon Surgeon Role Service Panel Jens Carbone MD Primary Orthopedic Surgery 1 Alfredo Gonzales PA Assisting 1 Reyes Henao MD Fellow Orthopedic Surgery 1 documented in this encounter Social History Tobacco [...] Sign Reading Time Taken Comments Blood Pressure 127/50 04/21/2025 2:15 PM EDT Pulse 80 04/21/2025 2:30 PM EDT Temperature 36.2 C (97.1 F) 04/21/2025 2:10 PM EDT Respiratory Rate 12 04/21/2025 2:30 PM EDT Oxygen Saturation 95% 04/21/2025 2:30 PM EDT Inhaled Oxygen Concentration - - Weight 83.5 kg (184 lb 1.4 oz) 04/21/2025 9:51 A M EDT Height - - Body Mass Index 30.63 04/13/2025 1:20 PM EDT documented in this encounter Functional Status * Calculated C-SSRS Risk Score (Lifetime/Recent) Answer Date of Assessment Author No Risk Indicated 04/21/2025 10:06 AM EDT Elva Alfredo RN * Question Answer Date of Assessment Author 1. Wish to be (Past 1 Month) No 04/21/2025 10:06 AM EDT Elva Fish RN 2. Non-Specific Active Suici shahab Thoughts (Past 1 Month) No 04/21/2025 10:06 AM EDT Shanell Fish RN 6. Suicidal Behavior (Lifetime) No 10:06 AM EDT Elva Fish RN documented as of this encounter Discharge Instructions [...] 1 capsule by mouth daily. 12/26/2021 pancrelipase, Zvq-Fwgp-Tdde, (Zenpep) 3000-36129 units capsule delayed-release particles capsule Take 2 [...] changes color ? Burning feeling * [facility] - 04/23/2025 12:04 PM EDT Images from the original note were not included. 97413 After Knee Replacement: Using a Walker Following [...] after your physical or occupational therapist or senior software qa engineer has shown you the correct procedures, you [...] leg. Last Reviewed Date: 2024 00:00:00 ?? [id number] [employer]. All rights reserved. This information is not intended as a substitute for professional medical care. Always follow your healthcare professional's instructions. * [facility] - Anay Schmitt RN - 04/23/2025 12:04 PM EDT Images from the original note were not included. 65967 Using an Incentive Spirometer An incentive spirometer [...] rate Last Reviewed Date: 2025 00:00:00 ?? [id number] [employer]. All rights reserved. This information is not intended as a substitute for professional medical care. Always follow your healthcare professional's instructions. * [facility] - Anay Schmitt RN - 04/23/2025 12:04 PM EDT Images from the original note were not included. 23943 Preventing Deep Vein Thrombosis After Surgery In [...] blood clots. Move your feet in a koi or up and down. Do this 10 [...] bleeding. Last Reviewed Date: 2025 00:00:00 ?? [id number] [employer]. All rights reserved. This information is not intended as a substitute for professional medical care. Always follow your healthcare professional's instructions. * [facility] - Anay Schmitt, VANESSA - 04/23/2025 12:04 PM EDT Images from the original note were not included. 60792 Preventing a Surgical Site Infection A risk [...] of infection. ? Controlled body temperature. A snoyb-zcuf-osdjli temperature during or after surgery prevents oxygen [...] and water or with an alcohol-based hand subcontracts manager before and after caring for you. Don?t [...] away. Last Reviewed Date: 2024 00:00:00 ?? [id number] [employer]. All rights reserved. This information is not intended as a substitute for professional medical care. Always follow your healthcare professional's instructions. * [facility] - Anay Schmitt RN - 04/23/2025 12:04 [...] medicines unless your doctor approves. This includes oxzx-vec-bbmrrpr medicines like aspirin, ibuprofen and Tylenol. ? [...] a nutritional supplement such as Boost or Outlook Instant Breakfast until your appetite returns to [...] ? If you have problems sleeping, take zsie-qih-dgzhexz diphenhydramine (Benadryl) or melatonin. ? If you [...] prescription refill before your next appointment, call [phone]. Call 2 business days before you run [...] Patient-Specific Goal (Individualized) 04/23/2025 1130 by Sherron Marin, RN Outcome: Ongoing, Progressing 04/23/2025 1130 by [...] Ongoing, Progressing * Discharge Summary - Eliza Zaidi APRN - 04/23/2025 11:28 AM EDT Hospitalization Admit Date/Time: 04/21/2025 8:44 AM Admitting Attending: Jens Carbone Discharge Date: 04/23/2025 Discharge Attending Physician: Jens Carbone MD PCP name and Address: Ronald Roca MD [address] [facility] / [place] [address] Referring provider name and address: No referring provider defined for this encounter. Chief Concern, Brief History of Present Illness, and Hospital Course Patient arrived to [facility] on 04/21/25 for their scheduled surgery. Patient [...] for moderate pain or severe pain. pancrelipase (Eev-Ehuh-Iayx) 3000-62051 units capsule delayed-release particles capsule Commonly known [...] Your Medications These medications were sent to [facility] - [place], [place] - [address] [place] [address] [phone] [facility] [place] [id number] acetaminophen 500 MG tablet aspirin 81 MG [...] 05/06/2025 2:30 PM Alfredo Gonzales PA [facility] 06/08/2025 3:20 PM Jens Carbone MD [facility] 08/24/2025 3:00 PM OCR-THOMAS GIORDANO OCRCHWHRUDDY Carl Test Results Pending At Discharge Pertinent [...] Moreira PA - 04/23/2025 11:12 AM EDT [facility] Medicine Progress Note Subjective: Evaluated with [...] 1 tablet, Oral, BID with meals pancrelipase (Tgd-Tyuh-Mkre), 2 capsule, Oral, TID with meals pantoprazole, [...] PRN oxyCODONE, 5 mg, q4h PRN pancrelipase (Oth-Rabw-Fcyc), 1 capsule, PRN Assessment/Plan Principal Problem: Primary [...] dysfunction History of PACs/PVCs - Follows with [place] [facility] - Systolic BP overall stable in [...] with questions orconcerns. LESLY Gipson-C Division of Hospital Medicine Secure chat preferred [1] * Progress Notes - Khushbu Wood - 04/23/2025 9:19 AM EDT Physical Therapy Treatment Patient Name: Radha Lee Today's Date: 04/23/2025 PT Discharge Recommendations: Home with assistance, Outpatient PT Equipment Recommended: Rolling walker Subjective Patient reporting she is feeling some better today and agreeable to participate. Participants in Care Family/Caregiver Present: Yes Family/Caregiver: Spouse Clinical Laboratory Technician: Not Applicable Presentation Oxygen Therapy: None (Room [...] Mobility Bed Mobility Exam: Scooting/Bridging Level of Lowell: Stand-by assist Physical/Nonphysical Assist: Supervision Assistive Device: Bed rails Bed Mobility Exam: Supine to Sit Level of [place]ell: Stand-by assist Physical/Nonphysical Assist: Supervision, HOB elevated, Set-up required Assistive Device: Bed rails Bed Mobility Exam: Sit to Supine Level of [place]ell: Minimum assist (75% patient's effort) Physical/Nonphysical Assist: Verbal Cues, Minimal cues Assistive Device: Bed rails Transfers Transfer Exam: Sit to stand Level of [place]ell: Stand-by assist Physical/Nonphysical Assist: Verbal Cues, Minimal cues, Set-up required Assistive Device: Walker, rolling Transfer Exam: Stand to Sit Level of Lowell: Stand-by assist Physical/Nonphysical Assist: Supervision, Set-up required [...] steps Min A/CGA with straight cane and FISHING INSTRUCTOR. Patient required frequent cuing on how to ascend/descend steps correctly and MEDICAL TECH wrote it down on piece ofpaper for [...] 05/06 Almas Ruby MD PGY-1, Orthopaedic Surgery [facility] Orthopaedic Trauma Service Pager: [phone] Orthopaedic Recon/Spine/Foot and Ankle Service Pager: [phone] Cosigned by Jens Carbone MD at 04/24/2025 [...] Moreira PA - 04/22/2025 4:09 PM EDT Hospital Medicine Progress Note Subjective: Sitting in [...] meals ketorolac, 15 mg, Intravenous, q8h pancrelipase (Zcx-Dsxt-Wfmy), 2 capsule, Oral, TID with meals pantoprazole, [...] PRN oxyCODONE, 5 mg, q4h PRN pancrelipase (Ula-Ceij-Mxhu), 1 capsule, PRN Assessment/Plan Principal Problem: Primary [...] dysfunction History of PACs/PVCs - Follows with [place] [facility] - Hypertensive immediately post-op, now overall [...] hyponatremia ranging from 132-137 since 2016 - Hold home hydrochlorothiazide as above, encourage [...] of Hospital Medicine Secure chat preferred [1] * Progress Notes - Khushbu Wood - 04/22/2025 1:50 PM EDT Physical Therapy Treatment Patient Name: Radha Lee Today's Date: 04/22/2025 PT Discharge Recommendations: Home with assistance, Outpatient PT Equipment Recommended: Rolling walker Subjective Patient reporting she knows she has to try stairs again. Participants in Care Family/Caregiver Present: Yes Family/Caregiver: Spouse Clinical Laboratory Technician: Not Applicable Presentation Oxygen Therapy: None (Room [...] Mobility Bed Mobility Exam: Scooting/Bridging Level of Lowell: Stand-by assist Physical/Nonphysical Assist: Supervision Assistive Device: Bed rails Bed Mobility Exam: Supine to Sit Level of Lowell: Stand-by assist Physical/Nonphysical Assist: Supervision, HOB elevated, Set-up required Assistive Device: Bed rails Bed Mobility Exam: Sit to Supine Level of Lowell: Minimum assist (75% patient's effort) Physical/Nonphysical Assist: Verbal Cues, Minimal cues Assistive Device: Bed rails Transfers Transfer Exam: Sit to stand Level of Lowell: Stand-by assist Physical/Nonphysical Assist: Supervision Assistive Device: Walker, rolling Transfer Exam: Stand to Sit Level of Lowell: Stand-by assist Physical/Nonphysical Assist: Supervision Assistive Device: [...] goals by participating in 5 steps with FISHING INSTRUCTOR bilaterally Mod A. Patient denies SOA/dizziness and [...] admission Level of Mobility: Ambulatory- community Mobility Lowell: Independent gait without device History of Falls: [...] Transfer Exam: Sit to stand Level of Lowell: Contact guard Physical/Nonphysical Assist: Verbal Cues, Moderate cues Assistive Device: Walker, rolling Transfer Exam: Stand to Sit Level of Lowell: Contact guard Physical/Nonphysical Assist: Verbal Cues, Moderate [...] ascend Therapeutic Exercise (9 minutes) Access Code: [email or web address] URL: [email or web address] Date: 04/22/2025 Prepared by: Nolvia Mccain Program Notes Total Knee Replacement Exercises - Phase 1 Day 1-7 Towel Prop - 3 x daily - 15-30 minutes - Phase 1 (Days 1-7) Ankle Pumps - 3 x daily - 20 reps - 3 hold - Phase 1 (Days 1-) Knee PushDowns - 3 x daily - 20 reps - 3 hold - Phase 1 (Days 1-) Buttocks Squeeze - 3 x daily - 20 reps - 3 hold - Phase I Supine Heel Slide Days - - 3 x daily - 1 sets - 20 reps - Phase 1 (Days -) Short Arc Quad - 2 x daily [...] Knee Flexion - 3 x daily - 20reps - 3 hold - Phase 2 ( Days 8-14) Knee Flexion with Overpressure - 3 x daily - 20 reps - 3 hold - Phase 2 ( Days 8-14) Standing Marching - 3 x daily - 10 reps - 3 hold - Phase 2 ( Days 8-14) Hip Abduction - 3 x daily - 10 reps - 3 hold - Phase 2 ( Days 8-14) Standing Hip Flexion - 3 x daily - 10reps - 3 hold - Phase 2 ( [...] daily - 20 reps - Phase 3 ( Days 15-28) Single Leg Step- Up - 3 x daily - 20 reps - Phase 3( Days 15-28) Step Down - 3 x daily - 10 reps - Phase 3 ( Days 15-28) Bilateral Heel Raises - 3 x daily - 10 reps - Phase 3 (Days 15-28) Standing Toe Raises - 3 x daily - 20 reps - Phase 3 (Days 15-28) Balance: Unilateral (Single Leg Stance) - 3 x daily - 4 reps - 30 hold - Phase 3 ( Days 15-) Side Step - 3 x daily - 4 reps Patient Education - Total Knee Replacement Instructions Patient participated [...] Standardized Assessments [facility] 6-Clicks Mobility Assessment Difficulty patient has [...] railing?: Unable [facility] [address] 6-Clicks Mobility Assessment Total : 18 [...] Note Radha Lee 79 y.o. female CSN: [id number] Admission: 04/21/2025 8:44 AM Primary Problem: Primary osteoarthritis of right knee RW to be delivered to bedside today by [employer]. Additional Comments Lizette Sol RN * Progress [...] 05/06 Almas Ruby MD PGY-1, Orthopaedic Surgery [facility] Orthopaedic Trauma Service Pager: [phone] Orthopaedic Recon/Spine/Foot and Ankle Service Pager: [phone] Cosigned by Jens Carbone MD at 04/22/2025 4:21 PM EDT * Progress Notes - Farzana Church - 04/22/2025 8:33 AM EDT Occupational Therapy [...] admission Level of Mobility: Ambulatory- community Mobility Lowell: Independent gait without device History of Falls: [...] Mobility Bed Mobility Exam: Rolling/Turning Level of Lowell: Stand-by assist Physical/Nonphysical Assist: Minimal cues, Verbal Cues Bed Mobility Exam: Scooting/Bridging Level of [place]ell: Stand-by assist Physical/Nonphysical Assist: Minimal cues Bed Mobility Exam: Supine to Sit Level of Lowell: Contact guard Physical/Nonphysical Assist: Supervision, Minimal cues, Verbal Cues Transfers Transfer Exam: Sit to stand Level of Lowell: Contact guard Physical/Nonphysical Assist: Verbal Cues, Moderate cues Assistive Device: Walker, rolling Transfer Exam: Stand to Sit Level of Lowell: Contact guard Physical/Nonphysical Assist: Verbal Cues, Moderate cues Assistive Device: Walker, rolling Toilet Transfer Level of Lowell: Contact guard Physical/Nonphysical Assist: Minimal cues, Verbal [...] completing her ADL's, requiringextra time. Standardized Assessments [facility] 6-Click Daily Activities Help from Other: Don/Doff Regular Lower Body Clothings: None Help From Other: Bathing: Little Help From Other: Toileting: None Help From Other: Don/Doff Upper Body Clothings: None Help From Other: Grooming: None Help From Other: Eating Meals: None [facility] 6 Click - Daily Activities Score: [...] Procedure Laterality Date CHOLECYSTECTOMY N/A Cholecystotomy from [facility] LAPAROSCOPIC GASTRIC BANDING N/A Laparosc Gastric Restrictive Proc By Adjustable Gastric Band from [facility] TOTAL KNEE ARTHROPLASTY Left TUBAL LIGATION N/A Tubal Ligation from [facility] Family History Family History Problem Relation Name [...] mg, Oral, Every 6 hours PRN pancrelipase, Zfh-Insv-Dikv, (Zenpep) 3000-79659 units capsule delayed-release particles capsule 2 capsules, [...] meals ketorolac, 15 mg, Intravenous, q8h pancrelipase (Frk-Ljbo-Wzye), 2 capsule, Oral, TID with meals pantoprazole, [...] PRN oxyCODONE, 5 mg, q4h PRN pancrelipase (Oju-Nxqq-Dsgv), 1 capsule, PRN EXAM: Last Recorded Vitals [...] dysfunction History of PACs/PVCs - Follows with [place] [facility] - Echo 06/2024 reviewed with EF [...] Implant Name Type Inv. Item Serial No. Special Effects Makeup Artist Lot No. LRB No. Used Action CEMENT PALACOS - [id number] CEMENT PALACOS [id number] Right 2 Implanted CHG FEMORAL LEGION CR NRRW OXIN SZ6 RT - [id number] CHG FEMORAL LEGION CR NRRW OXIN SZ6 RT [id number] Right 1 Implanted CHG TIBIAL JOURNEYIA BASE TROPHY ASSEMBLER R - [id number] CHG TIBIAL JOURNEYIA BASE TROPHY ASSEMBLER R [id number] Right 1 Implanted CHG PATELLA GII OVAL RESURFACI - [id number] CHG PATELLA GII OVAL RESURFACI [id number] Right 1 Implanted INSERT XLPE LEGION CRDD W/MINO ZAMUDIO SZ3-4/11MM - [id number] INSERT XLPE LEGION CRDD W/MINO ZAMUDIO SZ3-4/11MM [id number] Right 1 Implanted Specimen: No specimens collected during this procedure. Narrative: There was no qualified resident for this case. Alfredo Gonzales PA-C was the assistant elementary teacher. This assistance was medically necessary in helping [...] distal femoral cut was performed using the [employer]oc[employer]Align Imageless Navigation. The pin was placed to [...] punch and peg were used. A lamina wheel assembler was used to evaluate the flexion gap [...] [facility] [address], [address] [place] [address] Jens Carbone MD [address] [facility] [address] [address] [facility] [address] [place] [address] 08/24/2025 3:00 PM EDT Ovarian Cancer Screening [facility] [address] [place] [address] Scheduled Referrals Name Type Priority Associated Diagnoses [...] - 99 mg/dL 04/22/2025 3:39 AM EDT [facility] BUN, Plasma 10 8 - 23 mg/dL 04/22/2025 3:39 AM EDT [facility] Creatinine, Plasma 0.78 0.60 - 1.10 mg/dL 04/22/2025 3:39 AM EDT [facility] BUN/Creatinine Ratio 13 04/22/2025 3:39 AM EDT [facility] Sodium, Plasma 132(L) 136 - 145 mmol/L 04/22/2025 3:39 AM EDT [facility] Potassium, Plasma 4.0 3.6 - 4.9 mmol/L 04/22/2025 3:39 AM EDT [facility] Chloride, Plasma 99 97 - 107 mmol/L 04/22/2025 3:39 AM EDT [facility] CO2, Plasma 23 22 - 29 mmol/L 04/22/2025 3:39 AM EDT [facility] Anion Gap 10 6 - 16 mmol/L 04/22/2025 3:39 AM EDT [facility] Total Calcium, Plasma 8.3(L) 8.9 - 10.2 mg/dL 04/22/2025 3:39 AM EDT [facility] eGFRcr 78.3 mL/min/1.7 3m*2 04/22/2025 3:39 AM EDT [facility] Comment:Reported eGFRcr in m L/min/1.73m2 is based the CKD-EPI 2020 equation that does not use a race coefficient. Blood Venous blood specimen / Unknown Venipuncture / Unknown 04/22/2025 2:09 AM EDT 04/22/2025 3:13 AM EDT us Eliza Zaidi APRN LAB BLOOD ORDERABLES Final Re sult Performing Organization Address [facility] Co de Phone Number [facility] [address] [place] [address] * (ABNORMAL) POCT glucose meter (04/21/2025 3:33 PM EDT) POCT Glucose 114(H) 74 - 99 mg/dL 04/21/2025 3:34 PM EDT [facility] Comment:Accuracy of a glucos e result [...] for testing. Comment 04/21/2025 3:34 PM EDT [facility] 7Th Grade Social Studies Teacher ID Rut Gloria 04/21/20 3:34 PM EDT [facility] Device ID [id number] 04/21/2025 3:34 PM EDT [facility] Specimen Type POC Capillary 04/21/2025 3:34 PM EDT [facility] Blood Capillary blood specimen / Unknown 04/21/2025 3:33 PM EDT 04/21/2025 3:34 PM EDT Jens Carbone MD LAB POINT OF CARE TE ST DOCKED DEVICE UNSOLICITED RESULTS Final Result Performing Organization Address [facility] Co de Phone Number [facility] [address] [place] [address] * XR Knee Right 1 or 2 [...] Zeinab Mota MD on 04/21/2025 4:15 PM Jens Carbone MD IMG XR PROCEDURES Final Resul t documented in this encounter Visit Diagnoses Diagnosis Primary osteoarthritis of right knee- Primary Primary osteoarthritis of right knee Primary osteoarthritis of right knee documented in [...] magnesium hydroxide bupivacaine-EPINEPHrine PF (Marcaine w/EPI) 0.5% -1:076857 injection As needed, Starting on Sun04/21/25 at 1223, Until Sun04/21/25 at 1335, Routine, Intraprocedure Given 04/21/2025 12:23 PM EDT 60 mL Other calcium-vitamin D 500-200 MG-UNIT per tablet 1 [...] Antonia 04/23/25 at 1506, Routine, muscle spasms Given 04/22/2025 [...] Margret Yousif RN)2137 (Given - Provider: Bin Hernandez RN) 0517 (Given - Provider: Bin Hernandez RN)1317 [...] Routine 1756 (Given - Provider: Margret Yousif RN)202 (Given - Provider: Bin Hernandez RN) 0838 (Given - Provider: Margret Yousif RN)165 (Given - Provider: Margret Yousif RN)2032 (Given - Provider: Bin Hernandez RN) 09 (Given - Provider: Sherron Marin, RN) aspirin chewable tablet 81 mg 81 mg, Oral, 2 times daily, First dose on Sun04/22/25 at 0900, Until Discontinued, Routine, Recovery(Phase II-Outpatient)/On Unit(Inpatient) 08 (Given - Provider: Margret Yousif RN)2032 (Given - Provider: Bin Hernandez RN) 09 (Given - Provider: Sherron Marin, RN) aztreonam [...] RN) 0434 (New Bag - Provider: Bin Hernandez RN)1353 (New Bag - Provider: Margret Yousif RN) aztreonam (Azactam) injection 2 g (COMPLETED) 2 g, Intravenous, Once, 1 dose, On Sun04/21/25 at 1045, Routine, Anesthesia Intraprocedure 1208 (Given - Provider: Luis Corbett, SHUTTLE DRIVER, DNP) calcium-vitamin D 500-200 MG-UNIT per tablet 1 tablet 1 tablet, Oral, 2 times daily with meals, First dose on Sun04/21/25 at 2100, Until Discontinued, Routine, Recovery(Phase II-Outpatient)/On Unit(Inpatient) 2022 (Given - Provider: Bin Hernandez RN) 08 (Given - Provider: Margret Yousif RN)1652 (Given - Provider: Margret Yousif RN) 0758 (Given - Provider: Sherron Marin, VANESSA) ketorolac (Toradol) injection 15 mg (COMPLETED) 15 mg, Intravenous, Every 8 hours, 6 doses, First dose on Sun04/21/25 at 1615, Last dose on Sun04/23/25 at 0815, Routine 1552 (Given - Provider: Margret Yousif RN)2315 (Given - Provider: Bin Hernandez, RN) 0839 (Given - Provider: Margret Yousif RN)1653 (Given - Provider: Margret Yousif RN)2315 (Given - Provider: Bin Hernandez, VANESSA) 0758 (Given - Provider: Sherron Marin, RN) oxyCODONE (Roxicodone) immediate release tablet 5 mg (COMPLETED) 5 mg, Oral, Once, 1 dose, On Sun04/21/25 at 1045, Routine, Holding - Preprocedure 1131 (Given - Provider: Elva Fish RN) pancrelipase (Zenpep) 3000 units capsule (CANCELED) 2 [...] RN) 0805 (Given - Provider: Sherron Marin, RN)1140 (Given - Provider: Sherron Marin RN) pantoprazole (Protonix) EC tablet 40 mg [...] 1045, Routine 1133 (Given - Provider: Elva Fish RN) senna-docusate (Glenis-Colace) 8.6-50 MG per tablet 2 [...] 0758 (Given - Provider: Sherron Marin, RN) tranexamic acid (Cyklokapron) IVPB 1,000 mg (COMPLETED) 1,000 mg, Intravenous, Once, 1 dose, On Sun04/21/25 at 1045, Routine, Holding - Preprocedure 1211 (Given - Provider: Luis Corbett CRNA, FLOWER) tranexamic acid (Cyklokapron) IVPB 1,000 mg (COMPLETED) 1,000 mg, Intravenous, Once, 1 dose, On Sun04/21/25 at 1045, Routine, Holding - Preprocedure 1308 (Given - Provider: Luis Corbett CRNA, FLOWER) vancomycin in NS (Vancocin) IVPB 1,250 mg (COMPLETED) 1,250 mg (rounded from 1,266 mg = 15 mg/kg 84.4 kg), Intravenous, Once, 1 dose, On Sun04/21/25 at 1045, at 200 mL/hr, STAT 1132 (New Bag - Provider: Elav Fish, VANESSA) Continuous Medication Order 04/21/2025 04/22/2025 [...] magnesium hydroxide bupivacaine-EPINEPHrine PF (Marcaine w/EPI) 0.5% -1:903606 injection (CANCELED) As needed, Starting on Sun04/21/25 [...] - Provider: Bin Hernandez RN)2049 (Return to [facility] - Provider: Bin Hernandez RN)224 (Given - Provider: Bin Hernandez RN) magnesium hydroxide (Milk of Magnesia) 400 MG/5ML [...] RN) 1317 (Given - Provider: Margret Yousif RN)181 (Given - Provider: Margret Yousif RN)2358 (Given - Provider: Bin Hernandez RN) 0922 (Given - Provider: Sherron Marin RN) pancrelipase (Zenpep) 40,000 units capsule 1 capsule, Oral, As needed, Starting on Sun04/22/25 at 1057, Until Sun04/23/25 at 1506, Routine, snacks, with snacks documented in this encounter Additional Health Concerns Assessment Noted Time A fall risk assessment has been complete d for the patient 04/13/2025 1:20 PM EDT A Body Mass Index follow-up plan has been documented for the patient 04/23/2025 12:05 PM EDT documented as of this encounter Care Teams News Assistant Relationship Specialty Start Date End Date Ronald Roca MD [address] [place] [address] PCP - General 03/11/21 documented as of this encounter
--- OUTSIDE RECORDS SUMMARY | 2025-04-27 10:44 | XMS_ITS | Encounter Summary ---
Author Organization [facility] Address [address] [place] [address] Care Team Providers Care Report Writer Name Role Phone Ronald Roca MD Primary Care Provider [phone] Reason for Referral * Consultation (Routine) - Authorized Specialty Diagnoses / Procedures Referred By Darryl russo Referred To Contact Physical Therapy Diagnoses Primary osteoarthritis of right knee Eliza Zaidi APRN [address] [facility] [address] [place] [address] Phone: tel: fax: Referral ID Status Reason Start Date Expiration Date Visits Requested Visits Authorized [id number] Authorized Consult and Treat 04/23/2025 10/23/2026 1 99 Reason for Visit * Consultation (Routine) - Authorized Specialty Diagnoses / Procedures Referred By Darryl russo Referred To Contact Physical Therapy Diagnoses Primary osteoarthritis of right knee Eliza Zaidi APRN [address] [facility] [address] [place] [address] Phone: tel: fax: Referral ID Status Reason Start Date Expiration Date Visits Requested Visits Authorized [id number] Authorized Consult and Treat 04/23/2025 10/23/2026 1 99 Encounter Details Date Type Department Care Team (Michelle st Contact Info) Description 04/27/2025 10:44 AM EDT - 04/27/2025 11:59 PM EDT Hospital Encounter Medical Office Building Physical Therapy [address] [facility], [address] [place] [address] Arely Gregory O [address] [facility] [id number] [place] [address] Primary osteoarthritis of one knee, right (Primary Dx) Discharge Disposition: Still a Patient Social History Tobacco Use Types Packs/Day Years [...] 1 capsule by mouth daily. 12/26/2021 pancrelipase, Cei-Rwsg-Uwpy, (Zenpep) [id number] units capsule delayed-release particles capsule Take 2 [...] as of this encounter Miscellaneous Notes * Progress Notes - Arely Gregory - 04/27/2025 11:30 AM EDT [facility] [place] [facility] PT Evaluation Date: 04/27/25 Name: Radha Lee : 1945 Past Medical History[1] Surgical History[2] Diagnosis: M17.11 (ICD-10-CM) - Primary osteoarthritis of right knee Time In: 10:56 Time Out: 11:47 SUBJECTIVE Patient is a 79 year old female who presents to PT s/p right TKA on 04/21/25. Patient reports she has been struggling a little since surgery. Patient reports she had left TKA about 8 years ago. Reports she was getting injections in right knee but they quit working. States she has been working on herpost-op exercises and icing her knee. Reports she will start PT in [place] next week. Pain (scale of 0-10): Location: right knee Current Pain: 8/10 Highest Pain: 8/10 Lowest Pain: 4/10 Description of Pain: aching Aggravating Factors: activity Alleviating Factors: ice Restriction/Precautions: standard Patient Goals: To return to basic normal activities Social History: Patient is retired. She resides in [facility]. Patient has 10 steps to enter home. OBJECTIVE: Observation: Patient ambulates with rolling walker and antalgic gait. ROM: Knee AROM: Motion Right (degrees) Knee flexion 92 Knee extension 0 Strength: Right Left Hip Flexion 3/5 4+/5 Knee Extension 3/5 5/5 Knee Flexion 3/5 5/5 Palpation: Patient has tenderness along anterior and medial aspect of right knee. Sensation: Diminished along lateral aspect of right knee Edema: Right midpatella: 52 cm Left midpatella: 47 cm Functional Outcome Measure: LEFS 19/80, 76% deficit Procedure/Treatment: PT Evaluation Therapeutic Exercise: (20 minutes/1 unit) Ankle pumps x 20, LAQ's x 20, seated knee flexion with skateboard x 20, quad sets x 20, glut sets x20, SAQ's x 20, heel slides x 10, SLR x 10 with assist, supine hip abd/adduction x 20, heel prop for extension x 3 minutes Modalities: Patient educated on risk, benefit, and adverse responses: and Vasopneumatic: to right knee for 15 min at maximum pressure of 15 mmHg Education Performed: Verbal instruction was provided to patient on therapeutic exercise, home exercise program, vasopneumatic intermittent compression, and exam findings, relevant anatomy, suspected pathology, and plan of care ASSESSMENT Radha Lee is a 79 y.o. female who presents with a primary complaint of s/p right TKA. Patient is demonstrating deficits in range of motion, muscle performance, gait, sensation, pain, and swelling. Skilled therapy is appropriate at this time to address these impairments and to move the patient towards their goal of return to normal activities. Patient was instructed in and performed phase 1 of TKA protocol. Primary Language: Welsh Needs communication device: No Does the patient understand basic information? Yes, able to self manage. Barriers to learning: None Cultural/Restoration beliefs: None that will affect treatment Rehab Potential/Prognosis: Good Personal Factors/Comorbidities Affecting Care: None Complexity: Low Complexity using Standard PT Assessment (52138) PLAN Patient to be seen 2 time per week for 1 week. Short Term Goals (to be met in 1 week) 1. Patient will be independent with HEP. 2. Patient will demonstrate ability to perform independent SLR on right 3. Patient will demonstrate 100 degrees right knee flexion to improve ADL's Treatment may include patient education, development of HEP, therapeutic exercise, therapeutic activity, neuromuscular re-education, gait training, functional/postural training, joint/soft tissue mobilizations, mechanical traction, taping, orthotic/splinting fabrication, and dry needling, and modali ties to include heat, ice, vasopneumatic edema management, ultrasound, iontophoresis at 40-80 mA/min of dexamethasone, TENS, and electrical stimulation. If patient does not return for 30 days, patient is to be considered discharged at this time. Patient agrees with/understands the plan of care. Bailey ent advised to call clinic with any questions or concerns. THE PROVIDER, I AM IN AGREEMENT WITH THE STATED THERAPY PLAN OF CARE. If the patient does not return for 30 days, they will be considered discharged at that time. Patient agrees with/understands the plan of care. Patient advised to call the clinic with any questions or concerns. Written By: Arely Gregory Referring Provider: Date: [1] Past Medical History: Diagnosis Date Anxiety disorder, unspecified Anxiety GERD (gastroesophageal reflux disease) Hyperlipidemia Hypertension Personal history of other diseases of the digestive system History of esophageal reflux Personal history of other endocrine, nutritional and metabolic disease History of hyperlipidemia [2] Past Surgical History: Procedure Laterality Date CHOLECYSTECTOMY N/A Cholecystotomy from [facility] LAPAROSCOPIC GASTRIC BANDING N/A Laparosc Gastric Restrictive Proc By Adjustable Gastric Band from [facility] TOTAL KNEE ARTHROPLASTY Left TUBAL LIGATION N/A Tubal Ligation from [facility] documented in this encounter Plan of Treatment Upcoming Encounters Date Type Department Care Team ([facility] st Contact Info) Description 06/08/2025 3:20 PM EDT Office Visit Medical Office Building Surgery Spine & Joint [address] [facility], [address] [place] [address] Jens Carbone MD [address] [facility] [address] [place] [address] 08/24/2025 3:00 PM EDT Ovarian Cancer Screening [facility] Gynecology [address] [place] [address] Scheduled Referrals Name Type Priority Associated Diagnoses Order Schedule Discharge Ambulatory referral to Physical Therapy Outpatient Referral Routine Once for 1 Occurrences starting 04/27/2025 until 04/27/2025 documented as of this encounter Goals Goal Patient Goal Type Associated Problems Recent Progress Patient-Stated? Author Autogenerat ed Goal Care Plan Autogenerated Problem No Eboni Pyle Linda documented as of this encounter Visit Diagnoses Diagnosis Primary osteoarthritis of one knee, right- Primary documented in this encounter Additional Health Concerns Active Problems Noted Date Diagnosed Date Autogenerated Problem 04/08/2025 Assessment Noted Time A fall risk assessment has been complete d for the patient 04/13/2025 1:20 PM EDT A Body Mass Index follow-up plan has been documented for the patient 04/23/2025 12:05 PM EDT documented as of this encounter Care Teams Report Writer Relationship Specialty Start Date End Date Ronald Roca MD [address] [facility] [address] [place] [address] PCP - General 03/11/21 documented as of this encounter
--- OUTSIDE RECORDS SUMMARY | 2025-04-30 13:19 | XMS_ITS | Encounter Summary ---
Author Organization Healthcare Address [address] [place] [address] Care Team Providers Care Winter Intern Name Role Phone Ronald Roca MD Primary Care Provider [phone] Reason for Visit * Consultation (Routine) - Authorized Specialty Diagnoses / Procedures Referred By Contac t Referred To Contact Physical Therapy Diagnoses Primary osteoarthritis of right knee Eliza Zaidi, STEEL LAYER [address] [facility] [address] [place] [address] Phone: tel: fax: Referral ID Status Reason Start Date Expiration Date Visits Requested Visits Authorized [id number] Authorized Consult and Treat 04/23/2025 10/23/2026 1 99 Encounter Details Date Type Department Care Team ([facility] Contact Info) Description 04/30/2025 1:19 PM EDT - 04/30/2025 11:59 PM EDT Hospital Encounter Medical Office Building Physical Therapy [address] [facility], [address] [place] [address] Arely Gregory O [address] [facility] [address] [place] [address] Primary osteoarthritis of one knee, right (Primary [...] 1 capsule by mouth daily. 12/26/2021 pancrelipase, Uic-Movz-Spsf, (Zenpep) 3000-99547 units capsule delayed-release particles capsule Take 2 [...] For 4 weeks post-op 30 tablet 04/23/2025 acetaminophen (Tylenol Extra Strength) 500 MG tablet [...] as of this encounter Miscellaneous Notes * Addendum Note - Arely Gregory - 04/30/2025 1:45 PM EDTEncounter addended by: Arely Gregory on: 05/06/2025 11:13 AM Actions taken: Episode resolved * Progress Notes - Arely Gregory - 04/30/2025 1:45 PM EDT [facility] Daily Note 04/30/25 Name: Radha Lee : 1945 Time In: 13:25 Time Out: 14:22 SUBJECTIVE Patient reports he knee is even more swollen. States she has iced and elevated. States she's only taking 1 Oxycodone in the morning and 1 in the evening and taking Tramadol and Extra Strength Tylenolthroughout the day. Pain (scale of 0-10): 8 Location: right knee OBJECTIVE Right knee flexion: 65 Procedure/Treatment: Therapeutic exercise: (40 minutes/3 units) Seated knee flexion on skateboard x 20, LAQ's x 20, bike x 5 minutes for ROM, heel slides x 10, heel prop for extension x 3 minutes, SAQ's x 20, SLR 2 x 10, supine hip abd/adduction x 20, glut sets x20, quad sets x 20, ankle pumps x 20, calf stretch 3 x 20 seconds, fitted with large graduated tubigrip for edema control Treatment Focused on: ROM and Strengthening Modalities: Patient educated on risk, benefit, and adverse responses: and Vasopneumatic: to right knee for 15 min at maximum pressure of 15 mmHg Education Performed: Verbal instruction was provided to patient on therapeutic exercise, vasopneumatic intermittent compression, and use of tubigrip ASSESSMENT Patient able to perform SLR independently today. Did not progress to phase 2 of protocol today secondary to swelling. Patient was fitted with graduated tubigrip to help with swelling. She will start PT closer to home next Sunday. She will continue with ice and HEP. Her knee flexion is much more limited today than it was last session. She has ortho follow-up next Sunday. PLAN Auto discharge after 30 days Written by Arely Gregory, on 04/30/25 documented in this encounter Plan of Treatment Upcoming Encounters Date Type Department Care Team (Late st Contact Info) Description 06/08/2025 3:20 PM EDT Office Visit Medical Office Building Surgery Spine & Joint [address] [facility], [address] [place] [address] Jens Carbone MD [address] [place] [address] 08/24/2025 3:00 PM EDT Ovarian Cancer Screening [facility] Gynecology [address] [facility] [place] [address] documented as of this encounter Goals Goal [...] documented as of this encounter Care Teams Winter Intern Relationship Specialty Start Date End Date Ronald Roca MD [address] [place] [address] PCP - General 03/11/21 documented as of this encounter
--- OUTSIDE RECORDS SUMMARY | 2025-05-06 14:30 | XMS_ITS | Encounter Summary ---
Author Organization [facility] Address [address] [place] [address] Care Team Providers Care Blast Furnace Blower Name Role Phone Ronald Roca MD Primary Care Provider [phone] Reason for Referral * Consultation (Routine) - Authorized Specialty Diagnoses / Procedures Referred By Contac t Referred To Contact Physical Therapy Diagnoses S/P total knee arthroplasty, right Alfredo Gonzales PA [address] [place] [address] Phone: tel: fax: Referral ID Status Reason Start Date Expiration Date Visits Requested Visits Authorized [id number] Authorized Consult and Treat 05/06/2025 11/05/2026 1 1 Scheduling Instructions Beginning 05/05/2025 Reason for Visit * Reason Comments Post-op Encounter Details Date Type Department Care Team (Late st Contact Info) Description 05/06/2025 2:30 PM EDT Office Visit Medical Office Building Surgery Spine & Joint [address], [address] [place] [address] Alfredo Gonzales PA [address] [place] [address] S/P total knee arthroplasty, right (Primary Dx) Social History Tobacco Use Types Packs/Day Years Used Date Smoking Tobacco: Never Smokeless Tobacco: Never Tobacco Cessation:Counseling Given: Not Answered Alcohol Use Standard Drinks/Week Comments Never 0 [...] Sign Reading Time Taken Comments Blood Pressure 141/83 05/06/2025 2:38 PM EDT Pulse 94 05/06/2025 2:38 PM EDT Temperature 36.9 C (98.4 F) 05/06/2025 2:38 PM EDT Respiratory Rate 18 05/06/2025 2:38 PM EDT Oxygen Saturation 94% 05/06/2025 2:38 PM EDT Inhaled Oxygen Concentration - - Weight 83.5 kg (184 lb) 05/06/2025 2:38 PM EDT Height 165.1 cm (5' 5 ) 05/06/2025 2:38 PM EDT Body Mass Index 30.62 05/06/2025 2:38 PM EDT documented in this encounter Miscellaneous Notes * Progress Notes - Alfredo Gonzales PA - 05/06/2025 2:30 PM EDT Radha Lee presents in follow-up 2 weeks postop on a total knee arthroplasty. The patient is progressing fairly well. Patient's pain isfairly well controlled. They deny any sweats chills or fevers. Objective: Patient is neurovascular intact in the right lower extremity. Wound is healing well withno signs of infection. Range of motion is 0 degrees extension and 80 degrees flexion. There are no signs of DVT. Assessment: Status post right total knee arthroplasty. Plan: The patient will continue with weight-bearing, activity and physical therapy as tolerated andprogress to home exercise program. The Prineo will be allowed to slough off and the patient can shower over the wound, dry completely and light dressing if needed. We will follow up as scheduled for continued evaluation and x-rays. They will continue with their DVT prophylaxis as determined upon discharge. We recommend continuation of tapering off pain medications. documented in this encounter Plan of Treatment Upcoming Encounters Date Type Department Care Team (Late st Contact Info) Description 06/08/2025 3:20 PM EDT Office Visit Medical Office Building Surgery Spine & Joint [address] [place] [address] Jens Carbone MD [address] [place] [address] 08/24/2025 3:00 PM EDT Ovarian Cancer Screening [facility] Gynecology [address] [place] [address] Scheduled Referrals Name Type Priority Associated Diagnoses Orde r Schedule Physical Therapy (outgoing) Outpatient Referral Routine S/P total knee arthroplasty, right Expected: 05/06/2025 (Approximate), Expires: 11/07/2026 documented as of this encounter Goals Goal Patient Goal Type Associated Problems Recent Progress Patient-Stated? Author Autogenerat ed Goal Care Plan Autogenerated Problem No Eboni Pyle documented as of this encounter Visit Diagnoses Diagnosis S/P total knee arthroplasty, right- Primary documented in this encounter Additional Health Concerns Active Problems Noted Date Diagnosed Date Autogenerated Problem 04/08/2025 Assessment Noted Time A fall risk assessment has been complete d for the patient 05/06/2025 2:38 PM EDT A Body Mass Index follow-up plan has been documented for the patient 05/06/2025 3:08 PM EDT documented as of this encounter Care Teams Blast Furnace Blower Relationship Specialty Start Date End Date Ronald Roca MD [address] [place] [address] PCP - General 03/11/21 documented as of this encounter
--- OUTSIDE RECORDS SUMMARY | 2025-05-22 11:20 | XMS_ITS | Encounter Summary ---
Author Organization Healthcare Address [address] [place] [address] Care Team Providers Care Coating Mixer Tender Name Role Phone Ronald Roca MD Primary Care Provider [phone] Reason for Visit * Reason Comments Wound Check Knot sticking outsid e of inner thigh Concern for Infection Knot sticking outs arcadio of inner thigh Encounter Details Date Type Department Care Team (Late st Contact Info) Description 05/22/2025 11:20 AM EDT Office Visit Medical Office Building Surgery Spine & Joint [address], [address] [place] [address] Alfredo Gonzales PA [address] [place] [address] S/P total knee arthroplasty, right [...] Sign Reading Time Taken Comments Blood Pressure 147/79 05/22/2025 10:42 AM EDT Pulse 79 05/22/2025 10:42 AM EDT Temperature - - Respiratory Rate - - Oxygen Saturation 98% 05/22/2025 10:42 AM EDT Inhaled Oxygen Concentration - - Weight 82 kg (180 lb 12.4 oz) 05/22/2025 10:42 A M EDT Height 165.1 cm (5' 5 ) 05/22/2025 10:42 AM EDT Body Mass Index 30.08 05/22/2025 10:42 AM EDT documented in this encounter Miscellaneous Notes * Progress Notes - Alfredo Gonzales PA - 05/22/2025 11:20 AM EDT Radha Lee presents in follow-up 4 weeks postop on a total knee arthroplasty. The patient is progressing fairly well. Patient's pain ispoorly controlled in the patient complains of tenderness and swelling to the medial proximal thigh. She says in the morning she has very little swelling and mild tenderness but as the day progresses this worsens. She denies any sense sweats chills fevers or constitutional symptoms. We are concerned about this and had the patient obtain labs which she did this morning. Generally she is very happy with her knee progress at this point They deny any sweats chillsor fevers. Objective: Patient is neurovascular intact in the right lower extremity. Wound is healing well withno signs of infection. Range of motion is 0 degrees extension and 100 degrees flexion. There are nosigns of DVT. She has mild swelling and an area of tenderness proximally diameter 4 cm over the medial right thigh. This is not tender with activation against resistance and seems superficial. He hasnot consistent with lymphadenitis CRP this morning was normal at less than 3.0 sedimentation rate was normal at 23 with normal less than 30. White blood count is normal Assessment: Status post right total knee arthroplasty. Plan: The patient will continue with weight-bearing, activity and physical therapy as tolerated andprogress to home exercise program. The Prineo is removed and wound healing well and the patient canshower over the wound, dry completely and light dressing if needed. We will follow up as scheduled for continued evaluation and x-rays. They will continue with their DVT prophylaxis as determined upon discharge. We recommend continuation of tapering off pain medications. The patient was provided with a Medrol Dosepak as this is not appear to be infective. If her symptoms are worsening and not improving over the next week she will call and we will obtain an MRI of the area. Otherwise she is scheduled to see Dr. Carbone back in 2 weeks. documented in this encounter Plan of Treatment Upcoming Encounters Date Type Department Care Team (Late st Contact Info) Description 06/08/2025 3:20 PM EDT Office Visit Medical Office Building Surgery Spine & Joint [address] [place] [address] Jens Carbone MD [address] [place] [address] 08/24/2025 3:00 PM EDT Ovarian Cancer Screening [facility] [address] [place] [address] documented as of this encounter Goals Goal [...] has been complete d for the patient 05/22/2025 10:42 AM EDT A Body Mass Index follow-up plan has been documented for the patient 05/22/2025 12:17 PM EDT documented as of this encounter Care Teams Coating Mixer Tender Relationship Specialty Start Date End Date Ronald Roca MD [address] [place] [address] PCP - General 03/11/21 documented as of this encounter
--- OUTSIDE RECORDS SUMMARY | 2025-06-03 13:26 | XMS_ITS | Encounter Summary ---
Author Organization [place] [address] Care Team Providers Care Mid Level Developer Name Role Phone Ronald Roca MD Primary Care Provider [phone] Reason for Visit * Reason Onset Date Comments Cardiology Clearance 04/09/2025 Encounter Details Date Type Department Care Team (Late st Contact Info) Description 04/09/2025 Telephone [facility] [address] [address] Dio Wilks MD [address] [place] [address] [place] [address] Cardiology Clearance Social History Tobacco Use Types Packs/Day Years Used Date Smoking Tobacco: Never Smokeless Tobacco: Never Alcohol Use Standard Drinks/Week Comments Never 0 (1 standard drink = 0.6 oz pur e alcohol) AUDIT-C Answer Date Recorded Frequency of Alcohol Consumption Never 11/06/2019 Average Number of Drinks Not on file 020 Frequency of Binge Drinking Not on file 06/2020 Comments No Sex and Gender Information Value Date Recorded Sex Assigned at Not on file Legal Sex Female 9:08 PM EDT Gender Identity Not on file Sexual Orientation Not on file documented as of this encounter Miscellaneous Notes * Telephone Encounter - Eden Ontiveros RMA - 04/10/2025 2:45 PM EDT Electronically faxed. * Telephone Encounter - TierneyYany camp APRN - 04/10/2025 2:40 PM EDT Called and d/w patient. Denies any new symptoms. No chest pain/dyspnea. Sees PCP regularly. OK to proceed at moderate cardiac risk * Telephone Encounter - Trina Edwards CMA - 04/09/2025 9:08 AM EDT The assessment below is only valid for 30 days from signature and is subject to change based upon the patient's clinical condition. Cardiac Clearance Patient: Radha Lee : 1945 Procedure: Knee surgery Surgery date: 04/21/2025 Surgeon: Dr. Austin Carbone Anesthesia: Not specified Patient takes: [] ASA [] Plavix [] Brilinta [] Effient [] Eliquis [] Xarelto [] Pradaxa [] Warfarin [] Pletal Patient does not take any anticoagulants at this time. Please advise. Clearance scanned into encounter they are also asking for last office note, labs, CXR, EKG to be faxed with clearance. * Telephone Encounter - Soraya Goode - 04/09/2025 7:53 AM EDT Cardiac Clearance Ortho scanned documented in this encounter Plan of Treatment Upcoming Encounters Date Type Department Care Team (Late st Contact Info) Description 08/06/2025 1:45 PM EDT Office Visit [facility] [address] [address] Dio Wilks MD [address] [place] [address] [address] [facility] [place] [address] documented as of this encounter Goals Goal Patient Goal Type Associated Problems Recent Progress Patient-Stated? Author Alleviate symptoms of generalized anxiety Care Plan Generalized Anxiety No Orestes Simms MD documented as of this encounter Visit Diagnoses Not on filedocumented in this encounter Additional Health Concerns Active Problems Noted Date Diagnosed Date Generalized Anxiety 08/22/2023 Assessment Noted Time A fall risk assessment has been complete d for the patient 08/23/2022 3:34 PM EDT documented as of this encounter Care Teams Mid Level Developer Relationship Specialty Start Date End Date Ronald Roca MD [address] [place] [address] [address] [place] [address] PCP - General Family Medicine 10/29/1969 documented as of this encounter
--- OUTSIDE RECORDS SUMMARY | 2025-06-03 13:27 | XMS_ITS ---
Author Organization Unknown Results OrderDate OrderTestName ResultName ResultDate Value Units Range AbnormalFlag ResultStatus ObservationNotes TestCode ResultCode DateRecorded AccessionNumber DiagnosticSectionCode DiagnosticSectionName Sequence Interpretation Cust om 07/02/2024 00:00:00 P-Vitamin D 25-Hydroxy Vitamin D 25-Hydroxy 7107-72-43E71:00:00 53.6 ng/mL 30.0-100.0 - ng/mL Reviewed Jennifer Turcios 07/09/2024 8:55:56 AM > see TE P-Vitamin D 25-Hydroxy 07/02/2024 00:00: 00:00:00P-Culture, Ewfqg5896-72-20S21:00:00Not completedRePoornima Joe 10/06/2024 10:52:45 AM > Not completed Coding P-Culture, Urine 07/02/2024 00:00: 00:00:00P-Comprehensive Metabolic Panel (CMP)eGFR by Hmeqbvewsi5726-95-49C72:00:0070mL/min/1.73m2>59 - mL/min/1.28x8Lyvnfpje Jennifer Turcios 07/09/2024 8:55:56 AM > see TE Coding P-Comprehensive Metabolic Pa gerardo (CMP) 07/02/2024 00:00: 00:00:00P-Comprehensive Metabolic Panel (CMP) Wczkxwx8448-58-95G03:00:006.5g/dL6.0-8.3 - g/dLRevieweJennifer Cabezas 07/09/2024 8:55:56 AM > see TE Coding P-Comprehensive Metabolic Pa gerardo (CMP) 07/02/2024 00:00: 00:00:00P-Comprehensive Metabolic Panel (CMP) Yzyiaw7496-21-76P00:00:82512jczo/H201-613 - mmol/LRevNeetuJennifer S 07/09/2024 8:55:56 AM > see TE Coding P-Comprehensive Metabolic Pa gerardo (CMP) 07/02/2024 00:00: 00:00:00P-Comprehensive Metabolic Panel (CMP) Gigdyymha0029-63-42Z45:00:004.0mmol/L3.5-5.3 - mmol/LRevNeetuJennifer S 07/09/2024 8:55:56 AM > see TE Coding P-Comprehensive Metabolic Pa gerrado (CMP) 07/02/2024 00:00: 00:00:00P-Comprehensive Metabolic Panel (CMP) Udebupr6145-16-56B04:00:0094mg/dL65-99 - mg/dLReJennifer Portillo S 07/09/2024 8:55:56 AM > see TE Coding P-Comprehensive Metabolic Pa gerardo (CMP) 07/02/2024 00:00: 00:00:00P-Comprehensive Metabolic Panel (CMP) Jyuhwtowcr9425-99-21T77:00:000.86mg/dL0.50-1.00 - mg/dLDenzelJennifer S 07/09/2024 8:55:56 AM > see TE Coding P-Comprehensive Metabolic Pa gerardo (CMP) 07/02/2024 00:00: 00:00:00P-Comprehensive Metabolic Panel (CMP)CO2 9427-57-89K03:00:0027mmol/L22-32 - mmol/LRevNeetuJennifer S 07/09/2024 8:55:56 AM > see TE Coding P-Comprehensive Metabolic Pa gerardo (CMP) 07/02/2024 00:00: 00:00:00P-Comprehensive Metabolic Panel (CMP) Jktmbtja3611-40-22S46:00:0098mmol/L97-108 - mmol/LRevJennifer De Anda S 07/09/2024 8:55:56 AM > see TE Coding P-Comprehensive Metabolic Pa gerardo (CMP) 07/02/2024 00:00: 00:00:00P-Comprehensive Metabolic Panel (CMP) Fzxccnp9525-92-28S49:00:008.5mg/dL8.6-10.4 - mg/dLJennifer Andrade 07/09/2024 8:55:56 AM > see TE Coding P-Comprehensive Metabolic Pa gerardo (CMP) 07/02/2024 00:00: 00:00:00P-Comprehensive Metabolic Panel (CMP)BUN 3792-35-46I72:00:0012mg/dL8-23 - mg/dLJennifer Mahoney 07/09/2024 8:55:56 AM > see TE Coding P-Comprehensive Metabolic Pa gerardo (CMP) 07/02/2024 00:00: 00:00:00P-Comprehensive Metabolic Panel (CMP) Bilirubin, Txycw5468-90-33Z47:00:000.3mg/dL<0.2-1.2 - mg/dLJennifer Mahoney 07/09/2024 8:55:56 AM > see TE Coding P-Comprehensive Metabolic Pa gerardo (CMP) 07/02/2024 00:00: 00:00:00P-Comprehensive Metabolic Panel (CMP)AST (SGOT)0730-46-68I30:00:0020IU/L<5-40 - IU/LRJennifer Brito 07/09/2024 8:55:56 AM > see TE Coding P-Comprehensive Metabolic Pa gerardo (CMP) 07/02/2024 00:00: 00:00:00P-Comprehensive Metabolic Panel (CMP)ALT (SGPT)6418-00-20C53:00:0012IU/L<5-47 - IU/LRevJennifer De Anda 07/09/2024 8:55:56 AM > see TE Coding P-Comprehensive Metabolic Pa gerardo (CMP) 07/02/2024 00:00: 00:00:00P-Comprehensive Metabolic Panel (CMP) Alkaline Iqlwrxcmtde5168-36-53G43:00:0074IU/L35-121 - IU/LRJennifer Brito 07/09/2024 8:55:56 AM > see TE Coding P-Comprehensive Metabolic Pa gerardo (CMP) 07/02/2024 00:00: 00:00:00P-Comprehensive Metabolic Panel (CMP) Ahkrrey1591-26-15N05:00:003.8g/dL3.5-5.3 - g/dLReJennifer Portillo 07/09/2024 8:55:56 AM > see TE Coding P-Comprehensive Metabolic Pa gerardo (CMP) 07/02/2024 00:00: 00:00:00P-Comprehensive Metabolic Panel (CMP)A/G Jbzxv9249-42-22X16:00:001.41.1-2.5 -ReviewedJennifer Turcios 07/09/2024 8:55:56 AM > see TE Coding P-Comprehensive Metabolic Pa gerardo (CMP) 07/02/2024 00:00: 00:00:00P-Vitamin O32Efgjbte B12 2938-93-28Y17:00:00>2000pg/nD750-4959 - pg/mLJennifer Kate 07/09/2024 8:55:56 AM > see TE Coding P-Vitamin B12 07/02/2024 00:00: 00:00:00CBC Venipuncture (in house)[place] 8392-09-10S45:00:65783754 - 400Rain Ferrari 07/02/2024 3:19:31 PM > , Provider reviewed results while patient in office.Jennifer Turcios 07/02/2024 4:50:15 PM > Coding CBC Venipuncture (in house) 07/02/2024 00:00: 00:00:00CBC Venipuncture (in house)[facility] 2213-11-53X55:00:0033.631 - 38ReviewedKing,[facility] 07/02/2024 3:19:31 PM > , Provider reviewed results while patient in office.Jennifer Turcios 07/02/2024 4:50:15 PM > Coding CBC Venipuncture (in house) 07/02/2024 00:00:00007/02/2024 00:00:00CBC Venipuncture (in house)[facility] 4111-41-35O24:00:0030.025 - 35ReviewedKing,[facility] 07/02/2024 3:19:31 PM > , Provider reviewed results while patient in office.Jennifer Turcios 07/02/2024 4:50:15 PM > Coding CBC Venipuncture (in house) 07/02/2024 00:00:00007/02/2024 00:00:00CBC Venipuncture (in house)mcv 4973-64-17L56:00:0089.475 - 100ReviewedKadrianne,[facility] 07/02/2024 3:19:31 PM > , Provider reviewed results while patient in office.Jennifer Turcios 07/02/2024 4:50:15 PM > Coding CBC Venipuncture (in house) 07/02/2024 00:00: 00:00:00CBC Venipuncture (in house)hct 7387-53-07T80:00:0036.835 - 55ReviewedKing,[facility] 07/02/2024 3:19:31 PM > , Provider reviewed results while patient in office.Jennifer Turcios 07/02/2024 4:50:15 PM > Coding CBC Venipuncture (in house) 07/02/2024 00:00:00007/02/2024 00:00:00CBC Venipuncture (in house)hgb 5705-06-56N01:00:0012.311.5 - 16.5ReviewedKing,[facility] 07/02/2024 3:19:31 PM > , Provider reviewed results while patient in office.Jennifer Turcios 07/02/2024 4:50:15 PM > Coding CBC Venipuncture (in house) 07/02/2024 00:00:00007/02/2024 00:00:00CBC Venipuncture (in house)rbc 9256-35-75L31:00:004.113.5 - 5.5ReviewedKing,Rain 07/02/2024 3:19:31 PM > , Provider reviewed results while patient in office.Jennifer Turcios 07/02/2024 4:50:15 PM > Coding CBC Venipuncture (in house) 07/02/2024 00:00:00007/02/2024 00:00:00CBC Venipuncture (in house)gran 8252-85-79F98:00:0080.0%35 - 80ReviewedKing,Rain 07/02/2024 3:19:31 PM > , Provider reviewed results while patient in office.Jennifer Turcios 07/02/2024 4:50:15 PM > Coding CBC Venipuncture (in house) 07/02/2024 00:00: 00:00:00CBC Venipuncture (in house)mid 8938-33-70I71:00:004.9%2 - 15ReviewedKing,Rain 07/02/2024 3:19:31 PM > , Provider reviewed results while patient in office.Jennifer Turcios 07/02/2024 4:50:15 PM > Coding CBC Venipuncture (in house) 07/02/2024 00:00: 00:00:00CBC Venipuncture (in house)lymph 7942-85-41B13:00:0015.1%15 - 50ReviewedKing,Rain 07/02/2024 3:19:31 PM > , Provider reviewed results while patient in office.Jennifer Turcios 07/02/2024 4:50:15 PM > Coding CBC Venipuncture (in house) 07/02/2024 00:00:00007/02/2024 00:00:00CBC Venipuncture (in house)wbc 1366-16-24V98:00:007.43.5 - 10ReviewedKing,Rain 07/02/2024 3:19:31 PM > , Provider reviewed results while patient in office.Jennifer Turcios 07/02/2024 4:50:15 PM > Coding CBC Venipuncture (in house) 07/02/2024 00:00: 00:00:00Urinalysis - InhouseGluc 2793-11-63W79:00:00negReviewedKadrianne,Rain 07/02/2024 3:17:50 PM > , Provider reviewed results while patient in office.Jennifer Turcios 07/02/2024 4:49:59 PM > Coding Urinalysis - Inhouse 07/02/2024 00:00: 00:00:00Urinalysis - InhouseBili 7941-08-18N34:00:00negReviewedKadrianne,Rain 07/02/2024 3:17:50 PM > , Provider reviewed results while patient in office.Jennifer Turcios 07/02/2024 4:49:59 PM > Coding Urinalysis - Inhouse 07/02/2024 00:00: 00:00:00Urinalysis - InhouseKetone 9953-39-05E69:00:00negRevieweRain Mcarthur 07/02/2024 3:17:50 PM > , Provider reviewed results while patient in office.Jennifer Turcios 07/02/2024 4:49:59 PM > Coding Urinalysis - Inhouse 07/02/2024 00:00: 00:00:00Urinalysis - InhouseSp. Gr. 3368-08-88O80:00:001.015ReviewedKadrianne,Rain 07/02/2024 3:17:50 PM > , Provider reviewed results while patient in office.Jennifer Turcios 07/02/2024 4:49:59 PM > Coding Urinalysis - Inhouse 07/02/2024 00:00: 00:00:00Urinalysis - InhouseBlood 0218-54-39F31:00:00negRevieweBlue,Rain 07/02/2024 3:17:50 PM > , Provider reviewed results while patient in office.Jennifer Turcios 07/02/2024 4:49:59 PM > Coding Urinalysis - Inhouse 07/02/2024 00:00: 00:00:00Urinalysis - TjuuprnrS7522-26-29N72:00:00 7.0RevieweRain Mcarthur 07/02/2024 3:17:50 PM > , Provider reviewed results while patient in office.Jennifer Turcios 07/02/2024 4:49:59 PM > Coding Urinalysis - Inhouse 07/02/2024 00:00: 00:00:00Urinalysis - InhouseProtein 7315-58-20M91:00:00negRevieweRain Mcarthur 07/02/2024 3:17:50 PM > , Provider reviewed results while patient in office.Jennifer Turcios 07/02/2024 4:49:59 PM > Coding Urinalysis - Inhouse 07/02/2024 00:00: 00:00:00Urinalysis - InhouseUrobili 6960-08-61X86:00:003.2RevRain Suh 07/02/2024 3:17:50 PM > , Provider reviewed results while patient in office.Jennifer Turcios 07/02/2024 4:49:59 PM > Coding Urinalysis - Inhouse 07/02/2024 00:00: 00:00:00Urinalysis - InhouseNitrite 9029-38-07S76:00:00negReRain Lee 07/02/2024 3:17:50 PM > , Provider reviewed results while patient in office.Jennifer Turcios 07/02/2024 4:49:59 PM > Coding Urinalysis - Inhouse 07/02/2024 00:00: 00:00:00Urinalysis - InhouseLeuk 8823-22-06A34:00:00traceRRain Ocasio 07/02/2024 3:17:50 PM > , Provider reviewed results while patient in office.Jennifer Turcios 07/02/2024 4:49:59 PM > Coding Urinalysis - Inhouse 07/02/2024 00:00:00007/02/2024 00:00:00Urinalysis - InhouseColor/Clarity 4508-98-56K69:00:00yellow/clearRericharddKRain silver 07/02/2024 3:17:50 PM > , Provider reviewed results while patient in office.Jennifer Turcios 07/02/2024 4:49:59 PM > Coding Urinalysis - Inhouse 07/02/2024 00:00: 00:00:00P-Lipid PanelTriglycerides 2499-91-34P27:00:0076mg/dL<150 - mg/dLGabriela Samayoa 01/13/2025 04:37:26 PM > see phone encounter Coding P-Lipid Panel 01/08/2025 00:00: 00:00:00P-Lipid PanelNon-HDL Cholesterol 1049-90-17E52:00:91386xe/dL<130 - mg/dLGabriela Mahan 01/13/2025 04:37:26 PM > see phone encounter Coding P-Lipid Panel 01/08/2025 00:00: 00:00:00P-Lipid PanelLDL/HDL Ratio 6024-73-80H65:00:002.3Ratio<3.3 - RatioGabriela Samayoa 01/13/2025 04:37:26 PM > see phone encounter Coding P-Lipid Panel 01/08/2025 00:00: 00:00:00P-Lipid PanelLDL Cholesterol (Calculation) 2020-94-45Y34:00:26301vu/dL<130 - mg/dLGabriela Mahan 01/13/2025 04:37:26 PM > see phone encounter Coding P-Lipid Panel 01/08/2025 00:00: 00:00:00P-Lipid PanelHDL Cholesterol 1713-27-29A70:00:0070mg/dL>39 - mg/dLGabriela Samayoa 01/13/2025 04:37:26 PM > see phone encounter Coding P-Lipid Panel 01/08/2025 00:00: 00:00:00P-Lipid PanelCholesterol 2053-08-07C37:00:24396sr/dL<200 - mg/dLGabriela Mahan 01/13/2025 04:37:26 PM > see phone encounter Coding P-Lipid Panel 01/08/2025 00:00: 00:00:00P-Lipid PanelCholesterol / HDL Ratio 9618-76-84A53:00:003.65Hsreo4.00-4.44 - RatioGabriela Samayoa 01/13/2025 04:37:26 PM > see phone encounter Coding P-Lipid Panel 01/08/2025 00:00: 00:00:00P-Comprehensive Metabolic Panel (CMP)eGFR by Nuxgmgatng9332-94-17U93:00:0069mL/min/1.73m2>59 - mL/min/1.72k9UzwywyxwCqfzaGabriela Samayoa 01/13/2025 04:37:26 PM > see phone encounter Coding P-Comprehensive Metabolic Pa gerardo (CMP) 01/08/2025 00:00: 00:00:00P-Comprehensive Metabolic Panel (CMP) Psvyjgk1811-47-72U31:00:007.0g/dL6.0-8.3 - g/dLGabriela Samayoa 01/13/2025 04:37:26 PM > see phone encounter Coding P-Comprehensive Metabolic Pa gerardo (CMP) 01/08/2025 00:00: 00:00:00P-Comprehensive Metabolic Panel (CMP) Mzgxua8010-54-92X43:00:29486tbyl/O818-047 - mmol/LLGabriela Samayoa 01/13/2025 04:37:26 PM > see phone encounter Coding P-Comprehensive Metabolic Pa gerardo (CMP) 01/08/2025 00:00: 00:00:00P-Comprehensive Metabolic Panel (CMP) Xnxujhipo7139-31-08Y54:00:005.0mmol/L3.5-5.3 - mmol/LRGabriela Ortega 01/13/2025 04:37:26 PM > see phone encounter Coding P-Comprehensive Metabolic Pa gerardo (CMP) 01/08/2025 00:00: 00:00:00P-Comprehensive Metabolic Panel (CMP) Jzxuqjn9665-98-58T56:00:26419jz/dL65-99 - mg/dLGabriela Mahan 01/13/2025 04:37:26 PM > see phone encounter Coding P-Comprehensive Metabolic Pa gerardo (CMP) 01/08/2025 00:00: 00:00:00P-Comprehensive Metabolic Panel (CMP) Dkqrqvvztb2903-89-99O54:00:000.86mg/dL0.50-1.00 - mg/dLGabriela Samayoa 01/13/2025 04:37:26 PM > see phone encounter Coding P-Comprehensive Metabolic Pa gerardo (CMP) 01/08/2025 00:00: 00:00:00P-Comprehensive Metabolic Panel (CMP)CO2 6936-46-80M13:00:0024mmol/L22-32 - mmol/Gabriela Delcid 01/13/2025 04:37:26 PM > see phone encounter Coding P-Comprehensive Metabolic Pa gerardo (CMP) 01/08/2025 00:00: 00:00:00P-Comprehensive Metabolic Panel (CMP) Rrkjgoqu7925-15-31B57:00:0097mmol/L97-108 - mmol/Gabriela Delcid 01/13/2025 04:37:26 PM > see phone encounter Coding P-Comprehensive Metabolic Pa gerardo (CMP) 01/08/2025 00:00: 00:00:00P-Comprehensive Metabolic Panel (CMP) Xphwdes3386-25-90B35:00:009.2mg/dL8.6-10.4 - mg/dLGabriela Samayoa 01/13/2025 04:37:26 PM > see phone encounter Coding P-Comprehensive Metabolic Pa gerardo (CMP) 01/08/2025 00:00: 00:00:00P-Comprehensive Metabolic Panel (CMP)BUN 1854-68-65S28:00:0010mg/dL8-23 - mg/dLGabriela Samayoa 01/13/2025 04:37:26 PM > see phone encounter Coding P-Comprehensive Metabolic Pa gerardo (CMP) 01/08/2025 00:00: 00:00:00P-Comprehensive Metabolic Panel (CMP) Bilirubin, Iwofh1915-85-53O82:00:000.3mg/dL<0.2-1.2 - mg/dLGabriela Samayoa 01/13/2025 04:37:26 PM > see phone encounter Coding P-Comprehensive Metabolic Pa gerardo (CMP) 01/08/2025 00:00: 00:00:00P-Comprehensive Metabolic Panel (CMP)AST (SGOT)3821-56-06L15:00:0027IU/L<5-40 - IU/LRevGabriela Rodriguez 01/13/2025 04:37:26 PM > see phone encounter Coding P-Comprehensive Metabolic Pa gerardo (CMP) 01/08/2025 00:00: 00:00:00P-Comprehensive Metabolic Panel (CMP)ALT (SGPT)1418-37-03N50:00:0012IU/L<5-47 - IU/LRevieGabriela Pratt 01/13/2025 04:37:26 PM > see phone encounter Coding P-Comprehensive Metabolic Pa gerardo (CMP) 01/08/2025 00:00: 00:00:00P-Comprehensive Metabolic Panel (CMP) Alkaline Sbgvaqdufgo5978-36-54L79:00:0056IU/L35-121 - IU/LRevieGabriela Pratt 01/13/2025 04:37:26 PM > see phone encounter Coding P-Comprehensive Metabolic Pa gerardo (CMP) 01/08/2025 00:00: 00:00:00P-Comprehensive Metabolic Panel (CMP) Bnfwxzt9366-48-49Y06:00:004.4g/dL3.5-5.3 - g/dLReviewedGlane Gabriela 01/13/2025 04:37:26 PM > see phone encounter Coding P-Comprehensive Metabolic Pa gerardo (CMP) 01/08/2025 00:00: 00:00:00P-Comprehensive Metabolic Panel (CMP)A/G Ggnsp2081-46-31F77:00:001.71.1-2.5 -ReviewedGoGabriela hernandez 01/13/2025 04:37:26 PM > see phone encounter Coding P-Comprehensive Metabolic Pa gerardo (CMP) 01/08/2025 00:00:00
--- OUTSIDE RECORDS SUMMARY | 2025-06-03 13:28 | XMS_ITS | Encounter Summary ---
Author Organization Healthcare Address [address] [place] [address] Care Team Providers Care Log Raft Worker Name Role Phone Ronald Roca MD Primary Care Provider [phone] Encounter Details Date Type Department Care Team (Latest Contact Info) Description 05/06/2025 Travel Social History Tobacco Use Types Packs/Day Years [...] on file documented as of this encounter Plan of Treatment Upcoming Encounters Date Type Department Care Team (Late st Contact Info) Description 06/08/2025 3:20 PM EDT Office Visit Medical Office Building [facility] [address], [address] [place] [address] Jens Carbone MD [address] [place] [address] 08/24/2025 3:00 PM EDT Ovarian Cancer Screening [facility] [address] , [address] [place] [address] documented as of this encounter Goals Goal [...] documented as of this encounter Care Teams Log Raft Worker Relationship Specialty Start Date End Date Ronald Roca MD [address] [place] [address] PCP - General 03/11/21 documented as of this encounter
--- OUTSIDE RECORDS SUMMARY | 2025-06-03 13:28 | XMS_ITS | Patient Health Record ---
Author Organization [facility] Address [address] [facility] [address] [id number] Care Team Providers Care Sheet Manufacturing Supervisor Name Role Phone Jeronimo Roca Primary Care Provider Jennifer Turcios Unavailable [phone] Allergies Allergen (clinical drug ingredient) Drug/Non Drug [...] ctive Results Component Value Reference Range Notes Urinalysis - Inhouse Reviewed date:07/02/2024 04:50:03 PM Interpretation: Performing Lab: Notes/Report: Color/Clarity yellow/clear Leuk trace Nitrite neg Urobili 3.2 Protein neg pH 7.0 Blood neg Sp. Gr. 1.015 Ketone neg Bili neg Gluc neg P-Comprehensive Metabolic Pa gerardo (CMP) Reviewed date:01/13/2025 04:37:36 PM Interpretation:Na 132, gluc 124 Performing Lab: Notes/Report: Test performed by [facility] , [address], [place] [address] Chinmay Bush MD, Health Club Attendant CLIA: [id number] Sodium 132 135-145 mmol/L Potassium 5.0 3.5-5.3 [...] 158 Performing Lab: Notes/Report: Test performed by [facility], [address] , [address] , [place] [address] Chinmay Bush MD, Health Club Attendant CLIA: [id number] Cholesterol 243 <200 mg/dL Triglycerides 76 <150 [...] ATPIII guidelines LDL/HDL Ratio 2.3 <3.3 Ratio ____ LDL Cholesterol Patient History ____ Test Date: 12/20/2023 LDL Results: 85 Units: mg/dL % Change: - ---- Test Date: 01/08/2025 LDL Results: 158 Units: mg/dL % Change: +85% ____ MRI : Brain with and without contrast Reviewed date:07/11/2024 01:30:44 PM Interpretation:see corrected order Performing Lab: Notes/Report: see corrected order Mammogram Reviewed date:09/11/2024 02:38:59 PM Interpretation:Negative, annual f/u Performing Lab: Notes/Report: Negative, annual f/u result Negative, annual f/u CBC Venipuncture (in house) Reviewed date:07/02/2024 04:50:21 PM Interpretation: Performing Lab: Notes/Report: wbc 7.4 3.5 - 10 lymph 15.1% 15 - 50 mid 4.9% 2 - 15 gran 80.0% 35 - 80 rbc 4.11 3.5 - 5.5 hgb 12.3 11.5 - 16.5 hct 36.8 35 - 55 mcv 89.4 75 - 100 mch 30.0 25 - 35 mchc 33.6 31 - 38 platlet 329 100 - 400 P-Vitamin B12 Reviewed date:07/09/2024 08:56:02 AM Interpretation: Performing Lab: Notes/Report: Test performed by [facility] [address] [place] [address] , [address], [place] [address] Chinmay Bush MD, Health Club Attendant CLIA: [id number] Vitamin B12 >2000 232-1245 pg/mL P-Comprehensive Metabolic Pa gerardo (CMP) Reviewed date:07/09/2024 08:56:02 AM Interpretation: Performing Lab: Notes/Report: Test performed by [facility] [address] [place] [address] , [address], [place] [address] Chinmay Bush MD, Health Club Attendant CLIA: [id number] Sodium 135 135-145 mmol/L Potassium 4.0 3.5-5.3 mmol/L Chloride 98 97-108 mmol/L CO2 27 22-32 mmol/L Glucose 94 65-99 mg/dL BUN 12 8-23 mg/dL Creatinine 0.86 0.50-1.00 mg/dL Calcium 8.5 8.6-10.4 mg/dL eGFR by Creatinine 70 >59 mL/min/1.73m2 Protein 6.5 6.0-8.3 g/dL Albumin 3.8 3.5-5.3 g/dL Alkaline Phosphatase 74 35-121 IU/L ALT (SGPT) 12 <5-47 IU/L AST (SGOT) 20 <5-40 IU/L Bilirubin, Total 0.3 <0.2-1.2 mg/dL A/G Ratio 1.4 1.1-2.5 P-Culture, Urine Reviewed date:10/06/2024 10:53:10 AM Interpretation:Not completed Performing Lab: Notes/Report: Not completed P-Vitamin D 25-Hydroxy Reviewed date:07/09/2024 08:56:02 AM Interpretation: Performing Lab: Notes/Report: Test performed by [facility] [address] [place] [address] , [address], [place] [address] Chinmay Bush MD, Health Club Attendant CLIA: [id number] Vitamin D 25-Hydroxy 53.6 30.0-100.0 ng/mL Interpretation of Vitamin D 25 OH: < 20 ng/mL - Deficiency 20 - 29 ng/mL - Insufficiency 30 - 100 ng/mL - Sufficiency > 100 ng/mL - Super-therapeutic- toxicity may occur above this level. Clinical correlation required. MRI : Brain with and w/o con trast Reviewed date:07/27/2024 11:32:01 PM Interpretation:possible mastoiditis Performing Lab: Notes/Report: possible mastoiditis Medications Medication SIG (Take, Route, Frequency, Duration) Notes Start Date End Date Status Omeprazole 20 MG Take 1 capsule by [facility] once daily; Duration: 90 Active ALPRAZolam 0.5 MG 1 tab(s) orally 3 ti mes a day 04/16/2025 Active Vitamin D3 125 MCG (5000 UT) 1 capsule Orally Once a day; Duration: 90 days Active Rosuvastatin Calcium 20 MG 1 tablet Orally bedtime; Duration: 90 days 04/16/2025 Active Cyanocobalamin 1000 MCG/ML 1 mL Injection; Duration: 30 day(s) Active Probiotic - as directed Orally Active Lisinopril-hydroCHLOROthi azide 20-25 MG 1 tab(s) orally once a day; Duration: 90 days 03/28/2023 Active Propranolol HCl 20 MG 1 tab(s) orally on ce a day; Duration: 90 days Not-Takin g Prolia 60 MG/ML as directed Subcutaneous every 6 months 03/17/2024 Active Biotin 1000 MCG 1 tablet Orally Once a day; Duration: 30 day(s) Not-Taking Zenpep [id number] UNIT 2 capsules with meals and 1 with snacks Orally Active Immunizations Vaccine Route Administration Date Status Comme nts COVID 19 Moderna Unknown 12/08/2020 Administered COVID 19 Moderna Unknown 01/05/2021 Administered COVID 19 Moderna Unknown 11/02/2021 Administered DT, 7 YEARS OR OLDER Unknown 01/01/1997 Administered DT, 7 YEARS OR OLDER Unknown 01/01/1997 Administered Fluzone High Dose (65yr and older) IM Intramuscular 08/18/2015 Administered H1N1 flu vaccine IM Intramuscular 09/01/2009 Administered PNEUMOVAX 23 VACCINE IM Intramuscular 02/05/2019 Administe red Prevnar (PCV13) IM Intramuscular 10/07/2015 Administered Tetanus Tdap-Adacel (over 7yrs) IM Intramuscular 03/26/2018 Administered xFlu shot- 6months-36 months of vtb-FSEI-FMYP-trivalent Unknown 08/17/2011 Administered xFlu shot-36 months and older IM Intramuscular 09/15/2005 Administered xFlu shot-36 months and older IM Intramuscular 09/05/2007 Administered xFlu shot-36 months and older IM Intramuscular 08/19/2008 Administered xFluzone (6mos and older)-trivalent Unknown 08/19/2009 Administered xFluzone (6mos and older)-trivalent Unknown 08/18/2010 Administered eWgpmmfl-spsgavgbd-gpzvoba e pts. IM Intramuscular 08/21/2012 Administered uDfdroyx-kvwymesfi-ztzdawr e pts. IM Intramuscular 09/19/2013 Administered Problems Problem Type SNOMED Code ICD Code Onset Dates Problem Status W/U Status Risk Notes Problem Hyperlipidemia (75996887) Hyperlipidemia (E78.5) Active confirmed Problem Vitamin D deficiency (93134510) Vitamin D deficiency (E55.9) Active confirmed Problem Vitamin B12 deficiency (291056176) Vitamin B12 deficiency (E53.8) Active confirmed Problem Essential hypertension (35685394) Essential hypertension (I10) Active confirmed Problem Arthropathy (671054775) Arthropathy (M12.9) Active confirmed Problem Anxiety (27529714) Anxiety (F41.9) Active confi rmed Problem Osteopenia (997577537) Osteopenia (M85.80) Active confirmed Problem Bilateral caroti d bruits (R09.89) Active confirmed Problem Mixed anxiety and depressive disorder (701138044) Depression with anxiety (F41.8) Active confirmed Problem BMI 30+ - obesity (101087049) BMI 32.0-32.9,adult (Z68.32) Active confirmed Problem Vitamin D deficiency (27021053) Vitamin D deficiency, unspecified (E55.9) Active confirmed Problem Chronic pain (27871567) Other chronic pain (G89.29) Active confirmed Problem Pain of left knee joint (finding) (378997796556557) Pain in left knee (M25.562) Active confirmed Problem Ectopic beats (disorder) (89128676) 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) Active confirmed Problem Gastroesophageal reflux disease (907512958) GERD without esophagitis (K21.9) Active confirmed Problem Myositis (92581630) Myofasciitis (M60.9) Active confirmed Problem Unsteady gait (11315707) Unsteady gait (R26.81) Active confirmed Problem Gastroesophageal reflux disease without esophagitis (319817519) Gastroesophageal reflux disease without esophagitis (K21.9) Active confirmed Problem Osteoporosis (60865029) Osteoporosis (M81.0) Active confirmed Problem Iron deficiency anemia (85166810) Iron deficiency anemia, unspecified iron deficiency anemia type (D50.9) Active confirmed Problem Osteoarthritis of knee (612079058) Primary osteoarthritis of right knee (M17.11) Active confirmed Problem Osteoarthritis of knee (095180481) Primary osteoarthritis of left knee (M17.12) Active confirmed Problem Body mass index 30.0 0 to 34.99 (898991812402982) BMI 34.0-34.9,adult (Z68.34) Active confirmed Problem Non-rheumatic mitral regurgitation (807905508) Non-rheumatic mitral regurgitation (I34.0) Active confirmed Problem Aortic valve sclerosis (29748739) Aortic valve sclerosis (I35.8) Active confirmed Problem Pure hypercholesterolemia (131775684) Pure hypercholesterolemia (E78.00) Active confirmed Problem Pure hypercholesterolemia (245811302) Pure hypercholesterolemia, unspecified (E78.00) Active confirmed Problem Bakers cyst of k nee, left (M71.22) Active confirmed Problem Tricompartment osteoarthritis of left knee (M17.9) Active confirmed Problem History of pneumonia (348086860) History of pneumonia (Z87.01) Active confirmed Problem Artificial knee join t present (289002973397) Status post left knee replacement (Z96.652) Active confirmed Problem Aortic ejection murmur (498863908) Aortic ejection murmur (I35.1) Active confirmed Problem History of COVID-19 (205143836810896748) History of COVID-19 (Z86.16) Active confirmed Vital Signs Heart Rate 78 /min 04/16/2025 Blood pressure diastolic 70 mm Hg 04/16/2025 Height 64 in 04/16/2025 Blood pressure systolic 150 mm Hg 04/16/2025 Weight 187.4 lbs 04/16/2025 BMI 32.16 kg/m2 04/16/2025 Encounters Encounter Location Date Provider Diagnosis [facility] [address] [place] [id number] 07/02/2024 Jennifer Turcios COVID-19 U07.1 ; Diz ziness R42 ; Vitamin B12 deficiency E53.8 ; Abnormal urinalysis R82.90 ; Vitamin D deficiency E55.9 and Dysuria R30.0 [facility] [address] [place] [id number] 07/16/2024 Jennifer Turcios Neoplasm of uncertai n behavior of lower leg D48.7 [facility] [address] [place] [id number] 08/04/2024 Jeronimo Roca Mastoiditis of both sides H70.93 ; History of COVID-19 Z86.16 and Pancreatic insufficiency K86.89 [facility] [address] [place] [facility] [address] [place] [id number] 09/15/2024 Jeronimo Roca Essential hypertensi on I10 ; Depression with anxiety F41.8 ; Tricompartment osteoarthritis of left knee M17.9 ; Status post left knee replacement Z96.652 and Aortic valve sclerosis I35.8 [facility] [place] [facility] [address] [place] [id number] 01/08/2025 J Eleazar Roca Essential hypertensi on I10 ; Non-rheumatic mitral regurgitation I34.0 ; Depression with anxiety F41.8 ; Vitamin B12 deficiency E53.8 ; Osteopenia M85.80 ; Effusion, right knee M25.461 ; Arthropathy M12.9 ; Sprain and strain of other specified sites of knee and leg S86.909A ; Pure hypercholesterolemia E78.0 and Hyperlipidemia E78.5 [facility] [place] [facility] [address] [place], [place] [id number] 03/11/2025 Jennifer Crowdy Muscle spasm of back M62.830 ; B12 deficiency E53.8 ; Anxiety F41.9 ; Essential hypertension I10 and BMI 32.0-32.9,adult Z68.32 [facility] [address] [place] [facility] [address] [id number] 04/16/2025 J Eleazar Roca Arthropathy M12.9 ; Vitamin D deficiency E55.9 ; Aortic valve sclerosis I35.8 ; Status post left knee replacement Z96.652 ; Osteoporosis M81.0 ; Anxiety F41.9 and Pure hypercholesterolemia E78.00 [facility] [address] [place] [facility] [address] [place], [place] [id number] 07/09/2024 Jennifer Crowdy Dizziness R42 and Un steady gait R26.81 [facility] [address] [place] [facility] [address] [place], [place] [id number] 07/11/2024 Jeronimo Roca [facility] [address] [place], [place] [id number] 07/27/2024 Jennifer Crowdy Mastoiditis, unspeci fied laterality H70.90 [facility] [address] [place], [place] [id number] 01/13/2025 Jeronimo [facility] [address] [place], [place] [id number] 04/01/2025 Jeronimo Roca [facility] [address] [place], [place] [id number] 04/27/2025 Jeronimo Roca [facility] [address] [place], [place] [id number] 05/18/2025 Jeronimo Roca Assessments Encounter Date Diagnosis (ICD Code) Assessment Notes Treatment Notes Treatment Clinical Notes Section Notes 07/02/2024 Dizziness (ICD-10 - R42) Carlos l get records from the ER. 07/02/2024 COVID-19 (ICD-10 - U07.1) 07/09/2024 Dizziness (ICD-10 - R42) 07/09/2024 Unsteady gait (ICD-1 0 - R26.81) 07/16/2024 Neoplasm of uncertai n behavior of lower leg (ICD-10 - D48.7) 07/27/2024 Mastoiditis, unspeci fied laterality (ICD-10 - H70.90) 08/04/2024 History of COVID-19 (ICD-10 - Z86.16) 08/04/2024 Mastoiditis of both sides (ICD-10 - H70.93) Instructed to take 3 day course of Azithromycin. Then to refill for weekly dosing regimen. Rational explained. 09/15/2024 Essential hypertensi on (ICD-10 - I10) 09/15/2024 Depression with anxi ety (ICD-10 - F41.8) 01/08/2025 Essential hypertensi on (ICD-10 - I10) 01/08/2025 Non-rheumatic mitral regurgitation (ICD-10 - I34.0) 03/11/2025 B12 deficiency (ICD- 10 - E53.8) 03/11/2025 Muscle spasm of back (ICD-10 - M62.830) 04/16/2025 Vitamin D deficiency (ICD-10 - E55.9) 04/16/2025 Arthropathy (ICD-10 - M12.9) 04/16/2025 Aortic valve scleros is (ICD-10 - I35.8) 03/11/2025 Anxiety (ICD-10 - F41.9) 01/08/2025 Depression with anxi ety (ICD-10 - F41.8) 09/15/2024 Tricompartment osteoarthritis of left knee (ICD-10 - M17.9) 08/04/2024 Pancreatic insuffici ency (ICD-10 - K86.89) 07/02/2024 Vitamin B12 deficien cy (ICD-10 - E53.8) Pt requests a B12 shot today. 07/02/2024 Abnormal urinalysis (ICD-10 - R82.90) 09/15/2024 Status post left kne e replacement (ICD-10 - Z96.652) 01/08/2025 Vitamin B12 deficien cy (ICD-10 - E53.8) 03/11/2025 Essential hypertensi on (ICD-10 - I10) 04/16/2025 Status post left kne e replacement (ICD-10 - Z96.652) 04/16/2025 Osteoporosis (ICD-10 - M81.0) 03/11/2025 BMI 32.0-32.9,adult (ICD-10 - Z68.32) 01/08/2025 Osteopenia (ICD-10 - M85.80) 09/15/2024 Aortic valve scleros is (ICD-10 - I35.8) 07/02/2024 Vitamin D deficiency (ICD-10 - E55.9) 07/02/2024 Dysuria (ICD-10 - R30.0) 01/08/2025 Effusion, right knee (ICD-10 - M25.461) 04/16/2025 Anxiety (ICD-10 - F41.9) 04/16/2025 Pure hypercholesterolemia (ICD-10 - E78.00) 01/08/2025 Arthropathy (ICD-10 - M12.9) 01/08/2025 Sprain and strain of other specified sites of knee and leg (ICD-10 - S86.909A) 01/08/2025 Pure hypercholesterolemia (ICD-10 - E78.0) 01/08/2025 Hyperlipidemia (ICD- 10 - E78.5) Plan Of Treatment Next Appt Details Provider Name:Jeronimo Palafox er, 07/20/2025 01:15:00 PM, [address], [address], [place], [place], [id number], Insurance Providers Payer Name Payer Address Payer Phone Subscriber Number Group Number Insured Name Patient Relationship to Insured Coverage Start Date Coverage End Date MEDICARE PART B [address] [address] [place] [address] [id number] JOEY LEE Self - patient is the insured MEDICAID [employer] [address] [place] [id number] JOEY LEE Self - patient is the insured Medications Administered Medication Instructions Date of Administration Dosage Notes B-12 12/24/2008 1 mL B-12 01/25/2009 B-12 02/26/2009 1 mL B-12 03/29/2009 1 mL B-12 05/03/2009 1 mL B-12 06/02/2009 1 mL B-12 06/30/2009 1 mL B-12 09/01/2009 1 mL B-12 10/04/2009 1 mL B-12 10/30/2009 B-12 12/16/2009 1 mL B-12 01/11/2010 9562 B-12 02/03/2010 1 mL B-12 03/08/2010 1 mL B-12 04/06/2010 1mL B-12 05/27/2010 1 mL B-12 06/21/2010 1 mL B-12 07/15/2010 1 mL B-12 08/22/2010 1 mL B-12 09/19/2010 1 mL B-12 10/27/2010 1 mL B-12 11/26/2010 1 mL B-12 12/26/2010 1 mL B-12 02/15/2011 1 mL B-12 03/14/2011 1 mL B-12 04/26/2011 1.o ml B-12 07/19/2011 B-12 09/19/2011 1 mL B-12 10/25/2011 B-12 11/15/2011 B-12 12/11/2011 B-12 01/22/2012 B-12 03/05/2012 B-12 05/22/2012 B-12 06/10/2012 1ml mL B-12 07/22/2012 1 mL B-12 08/21/2012 1 mL B-12 10/16/2012 B-12 11/12/2012 B-12 12/09/2012 1 mL B-12 02/05/2013 1 mL B-12 04/07/2013 1 mL B-12 06/18/2013 B-12 07/15/2013 1 mL B-12 08/13/2013 1 mL B-12 01/08/2014 B-12 07/17/2014 1 mL B-12 08/26/2014 1 mL B-12 01/04/2015 1 mL B-12 04/14/2015 1 mL B-12 05/14/2015 1 mL B-12 06/15/2015 1 mL given by rock rocha B-12 07/27/2015 1 mL B-12 08/18/2015 1 mL B-12 10/07/2015 1 mL B-12 12/01/2015 1 mL B-12 01/10/2016 1 mL B-12 02/14/2016 1 mL B-12 05/10/2016 1 mL B-12 06/15/2016 1 mL B-12 07/27/2016 1 mL B-12 08/18/2016 1 mL B-12 09/29/2016 1 mL B-12 10/26/2016 1 mL B-12 12/06/2016 1 mL B-12 03/01/2017 1 mL B-12 04/18/2017 1 mL B-12 05/23/2017 1 mL B-12 06/18/2017 1 mL B-12 08/22/2017 1 mL B-12 10/18/2017 1 mL B-12 12/24/2017 1 mL B-12 02/01/2018 1 mL B-12 03/26/2018 1 mL B-12 05/10/2018 1 mL B-12 06/11/2018 1 mL B-12 07/19/2018 1 mL B-12 09/04/2018 1 mL B-12 11/06/2018 1 mL B-12 01/14/2019 1 mL B-12 02/05/2019 1 mL B-12 03/04/2019 1 mL B-12 04/22/2019 1 mL B-12 06/13/2019 1 mL B-12 08/05/2019 1 mL B-12 09/23/2019 1 mL B-12 10/17/2019 1 mL B-12 11/14/2019 1 mL B-12 12/17/2019 1 mL B-12 04/19/2020 1 mL B-12 05/10/2020 1 mL B-12 06/09/2020 1 mL B-12 07/17/2020 1 mL B-12 09/03/2020 1 mL B-12 10/19/2020 1 mL B-12 01/04/2021 1 mL B-12 02/28/2021 1 mL B-12 04/05/2021 1 mL B-12 07/05/2021 1 mL B-12 09/19/2021 1 mL B-12 10/04/2021 1 mL B-12 01/03/2022 1 mL Pt tolerated w ell B-12 05/03/2022 1 mL B-12 06/14/2022 1 mL B-12 10/04/2022 1 mL B-12 01/10/2023 1 mL B-12 03/28/2023 1 mL B-12 06/04/2023 1 mL B-12 08/30/2023 1 mL B-12 10/08/2023 1 mL B-12 12/20/2023 1 mL (administered by melony gerardo) B-12 04/28/2024 1 mL B-12 07/02/2024 1 mL B-12 01/08/2025 1 mL B-12 03/11/2025 1 mL Medical (General) History Medical History History ICD Code Hypertension Hyperlipidemia Depression Osteoarthritis 12/28/3017 Carotids less than 20% bilate ral stenosis Dental Extractions, 11/2020 COVID 17 Dec 2020, Moderna Carotids < 39% Stenosis, 12/2020 B 12 Deficiency Pure hypercholesterolemia E78.0 Pure hypercholesterolemia undefined Surgical History Surgery Date(Month/Year) LT Knee Repair 1998 Tubal Ligation 1977 Cholecystectomy D&C x 2 Bariatric surgery 07/13/2008 stress fracture, left foot 02/2009 colonoscopy, diverticulosis, Dr. Bueno endoscopy 12/2011 rght foot, bunionectomy 12/2012 Left knee replacment 04/19/3017 EGD and colonoscopy, Dr. Boggs 04/10 all upper teeth pulled 11/2020 EGD and colonoscopy negative, Dr. Siddhartha otero 03/01/2022 Hospitalization History Reason Date(Month/Year) [facility]- Pneumonia 04/29/2020-05/03/2020
--- OUTSIDE RECORDS SUMMARY | 2025-06-03 13:28 | XMS_ITS | Encounter Summary ---
Author Organization Healthcare Address [address] [place] [address] Care Team Providers Care Wood Preserving Plant Laborer Name Role Phone Ronald Roca MD Primary Care Provider [phone] Encounter Details Date Type Department Care Team (Latest Contact Info) Description 04/27/2025 Travel Social History Tobacco Use Types Packs/Day [...] Building [facility] [address] [facility] [address], [address] [place] [address] Jens Carbone MD [address] [place] [address] 08/24/2025 3:00 PM EDT Ovarian Cancer Screening [facility] [address] [place] [phone] documented as of this encounter Goals Goal [...] documented as of this encounter Care Teams Wood Preserving Plant Laborer Relationship Specialty Start Date End Date Ronald Roca MD [address] [place] [address] PCP - General 03/11/21 documented as of this encounter
--- OUTSIDE RECORDS SUMMARY | 2025-06-03 13:28 | XMS_ITS | Encounter Summary ---
Author Organization [facility] Address [address] [place] [address] Care Team Providers Care Surgeon/President Name Role Phone Ronald Roca MD Primary Care Provider [phone] Reason for Visit * Reason Onset Date Comments HCN - Patient Message 05/05/2025 Encounter Details Date Type Department Care Team (Late st Contact Info) Description 05/05/2025 Telephone Medical Office Building [facility] [address] [facility], [address] [place] [address] Jens Carbone MD [address] [place] [address] HCN - Patient Message Social History Tobacco Use Types Packs/Day Years [...] encounter Miscellaneous Notes * Telephone Encounter - Nilsa Kitchen RN - 05/08/2025 12:24 PM EDT Called patient and relayed message. Patient states understanding and denies further needs. * Telephone Encounter - Daniella Mon - 05/06/2025 10:18 AM EDT Faxed. * Telephone Encounter - Letitia Morillo - 05/05/2025 2:40 PM EDT Paperwork/Documentation Request Patient Name: Radha Lee Type: Physical Therapy order RIGHT knee Due Date: cristy Send To: ([facility]) Best contact number: Other: [phone] Optimal time of day to reach caller: ANYTIME Additional comments/information from caller: patient is there and this is needed now. Note: Please do not reply to this message. Follow-up communication and further actions as a result of this message need to be communicated with the patient directly, if the patient is not active onMyChart. If the patient is active on MyChart, they will receive notification of the communication/outcome via [employer]. documented in this encounter Plan of Treatment Upcoming Encounters Date Type Department Care Team (Late st Contact Info) Description 06/08/2025 3:20 PM EDT Office Visit Medical Office Building [facility] [address] [facility], [address] [place] [address] Jens Carbone MD [address] [place] [address] 08/24/2025 3:00 PM EDT Ovarian Cancer Screening [facility] [address] [place] [address] documented as of this encounter Goals Goal [...] documented as of this encounter Care Teams Surgeon/President Relationship Specialty Start Date End Date Ronald Roca MD [address] [place] [address] PCP - General 03/11/21 documented as of this encounter
--- OUTSIDE RECORDS SUMMARY | 2025-06-03 13:28 | XMS_ITS | Encounter Summary ---
Author Organization Healthcare Address [address] [place] [address] Care Team Providers Care Research Specialist Name Role Phone Ronald Roca MD Primary Care Provider [phone] Encounter Details Date Type Department Care Team (Latest Contact Info) Description 05/22/2025 Travel Social History Tobacco Use Types Packs/Day [...] Building [facility] [address] [facility], [address] [place] [address] Jens Carbone MD [address] [place] [address] 08/24/2025 3:00 PM EDT Ovarian Cancer Screening [facility] [address] [place] [address] documented as of this encounter Goals Goal [...] documented as of this encounter Care Teams Research Specialist Relationship Specialty Start Date End Date Ronald Roca MD [address] [place] [address] PCP - General 03/11/21 documented as of this encounter
--- OUTSIDE RECORDS SUMMARY | 2025-06-03 13:28 | XMS_ITS | Encounter Summary ---
Author Organization [facility] Address [address] [place] [address] Care Team Providers Care Dip Dyer Name Role Phone Ronald Roca MD Primary Care Provider [phone] Reason for Visit * Reason Onset Date Comments Med Refill 05/11/2025 Encounter Details Date Type Department Care Team (Late st Contact Info) Description 05/11/2025 Refill Medical Office Building Surgery Spine & Joint [address], [address] [place] [address] Jens Carbone MD [address] [place] [address] Social History Tobacco Use Types Packs/Day Years [...] Telephone Encounter - Nilsa Kitchen RN - 05/11/2025 10:27 AM EDT Patient called direct line. Patient wants to know when she can start her Prolia. Instructed Cristopher Gonzales said 1+ months after surgery. Patient states understanding but would like me to ask Dr. Carbone in person on Sunday. Denies further needs. documented in this encounter Plan of Treatment Upcoming Encounters Date Type Department Care Team (Late st Contact Info) Description 06/08/2025 3:20 PM EDT Office Visit Medical Office Building Surgery Spine & Joint [address] [facility], [address] [place] [address] Jens Carbone MD [address] [facility] [address] [place] [address] 08/24/2025 3:00 PM EDT Ovarian Cancer Screening [facility] [address] [facility], [address]rd [place] [address] documented as of this encounter Goals Goal [...] documented as of this encounter Care Teams Dip Dyer Relationship Specialty Start Date End Date Ronald Roca MD [address] [place] [address] PCP - General 03/11/21 documented as of this encounter
--- OUTSIDE RECORDS SUMMARY | 2025-06-03 13:28 | XMS_ITS | Encounter Summary ---
Author Organization [facility] Address [address] [place] [address] Care Team Providers Care Assistant Plant Manager Name Role Phone Ronald Roca MD Primary Care Provider Encounter Details Date Type Department Care Team (Late st Contact Info) Description 05/19/2025 Telephone Medical Office Building Surgery Spine & Joint [address] [facility], [address] [place] [address] Jens Carbone MD [address] [place] [address] Social History Tobacco Use Types [...] Miscellaneous Notes * Telephone Encounter - Nilsa Kitchen, RN - 05/19/2025 9:32 AM EDT Patient called yesterday and asked question regarding Prolia. Sent email to Dr. Carbone stating Radha Henao called me today wanting to know when she can re-start her Prolia. She asked a few weeksago and Alfredo Gonzales answered 1 + months. I relayed that message to Radha and she was fine with that response. Now the patient would like for me to ask you directly when you will allow her to restart her Prolia. Her Provider that prescribes it is urging her to re-start JOHN. Patient also called saying she did not feel well today and was worried it was from not taking her Prolia. Advised patient to call her PCP and prescriber. She had a RTK 04/21/25. Dr. Carbone said I agree with one month . Called patient and relayed Dr. Carbone's message. Patient states understanding and denies further needs. documented in this encounter Plan of Treatment Upcoming Encounters Date Type Department Care Team (Late st Contact Info) Description 06/08/2025 3:20 PM EDT Office Visit Medical Office Building Surgery Spine & Joint [address] [facility], [address] [place] [address] Jens Carbone MD [address] [facility] [address] [place] [address] 08/24/2025 3:00 PM EDT Ovarian Cancer Screening [facility] [address] , [address] [place] [address] documented as of this encounter Goals Goal [...] as of this encounter Care Teams Assistant Plant Manager Relationship Specialty Start Date End Date Ronald Roca MD [address] [place] [address] PCP - General 03/11/21 documented as of this encounter
--- OUTSIDE RECORDS SUMMARY | 2025-06-03 13:28 | XMS_ITS | Encounter Summary ---
Author Organization [facility] Address [address] [place] [address] Care Team Providers Care Back Tender Insulation Board Name Role Phone Ronald Roca MD Primary Care Provider [phone] Encounter Details Date Type Department Care Team ([facility] Contact Info) Description 05/21/2025 Orders Only Medical Office Building Surgery Spine & Joint [address] [facility], [address] [place] [address] Alfredo Gonzales PA [address] [facility] [address] [place] [address] S/P total knee arthroplasty, right (Primary Dx); Bleeding Social History Tobacco Use Types Packs/Day Years [...] Encounters Date Type Department Care Team (Late Contact Info) Description 06/08/2025 3:20 PM EDT Office Visit Medical Office Building Surgery Spine & Joint [address] [facility], [address] [place] [address] Jens Carbone MD [address] [facility] [address] [place] [address] 08/24/2025 3:00 PM EDT Ovarian Cancer Screening [facility] [address] , [address] [place] [address] documented as of this encounter Goals Goal Patient Goal Type Associated Problems Recent Progress Patient-Stated? Author Autogenerat ed Goal Care Plan Autogenerated Problem No Eboni Pyle Linda documented as of this encounter Results * Protime-INR (05/22/2025 9:55 AM EDT) Prothrombin Time 13.7 12.0 - 14.3 sec 05/22/2025 11:49 AM EDT [facility] INR 1.0 0.9 - 1.1 05/22/2025 11:49 AM EDT [facility] Blood Venous blood specimen / Unknown Venipuncture / Unknown 05/22/2025 9:55 AM EDT 05/22/2025 9:55 AM EDT Narrative [facility] - 05/22/2025 11:49 AM EDT OPTIMAL INR RANGES FOR PATIENT ON ORAL ANTICOAGULANT THERAPY Prevention of venous thromboembolism INR 2.0 to 3.0 In patients with heart disease: Atrial fibrillation INR 2.0 to 3.0 Valvular heart disease INR 2.0 to 3.0 Tissue heart valves INR 2.0 to 3.0 Mechanical prosthetic valves INR 2.5 to 3.5 Prevention of recurrent [place] INR 2.5 to 3.5 Alfredo GRACE [facility] BLOOD ORDERABLES Final Re sult [facility] [address] [place] [address] * (ABNORMAL) CBC with Differential (05/22/2025 9:55 AM EDT) WBC Count 4.77 3.70 - 10.30 10*3/uL LAB HEMATOLOGY METHOD 05/22/2025 11:27 AM EDT [facility] RBC Count 3.87(L) 3.90 - 5.20 10*6/uL LAB HEMATOLOGY METHOD 05/22/2025 11:27 AM EDT [facility] HGB 11.5 11.2 - 15.7 g/dL LAB HEMATOLOGY METHOD 05/22/2025 11:27 AM EDT [facility] HCT 35.3 34.0 - 45.0 % LAB HEMATOLOGY METHOD 05/22/2025 11:27 AM EDT [facility] Platelet Count 335 155 - 369 10*3/uL LAB HEMATOLOGY METHOD 05/22/2025 11:27 AM EDT [facility] MCV 91 79 - 98 fL LAB HEMATOLOGY METHOD 05/22/2025 11:27 AM EDT [facility] MCH 29.7 26.0 - 32.0 pg LAB HEMATOLOGY METHOD 05/22/2025 11:27 AM EDT [facility] MCHC 32.6 30.7 - 35.5 g/dL LAB HEMATOLOGY METHOD 05/22/2025 11:27 AM EDT [facility] RDW 13.8 11.5 - 14.5 % LAB HEMATOLOGY METHOD 05/22/2025 11:27 AM EDT [facility] MPV 9.8 8.8 - 12.5 fL LAB HEMATOLOGY METHOD 05/22/2025 11:27 AM EDT [facility] nRBC 0.0 <=0.0 per 100 WBCs LAB HEMATOLOGY METHOD 05/22/2025 11:27 AM EDT [facility] Differential Type Automated LAB HEMATOLOGY METHOD 05/22/2025 11:27 AM EDT [facility] Neutrophils % 72 % LAB HEMATOLOGY METHOD 05/22/2025 11:27 AM EDT [facility] Lymphocytes % 19 % LAB HEMATOLOGY METHOD 05/22/2025 11:27 AM EDT [facility] Monocytes % 6 % LAB HEMATOLOGY METHOD 05/22/2025 11:27 AM EDT [facility] Eosinophils % 2 % LAB HEMATOLOGY METHOD 05/22/2025 11:27 AM EDT [facility] Basophils % 1 % LAB HEMATOLOGY METHOD 05/22/2025 11:27 AM EDT [facility] Immature Granulocytes % 0 % LAB HEMATOLOGY METHOD 05/22/2025 11:27 AM EDT [facility] Neutrophils Absolute 3.46 1.60 - 6.10 10*3/uL LAB HEMATOLOGY METHOD 05/22/2025 11:27 AM EDT [facility] Lymphocytes Absolute 0.90(L) 1.20 - 3.90 10*3/uL LAB HEMATOLOGY METHOD 05/22/2025 11:27 AM EDT [facility] Monocytes Absolute 0.27(L) 0.30 - 0.90 10*3/uL LAB HEMATOLOGY METHOD 05/22/2025 11:27 AM EDT [facility] Eosinophils Absolute 0.09 0.00 - 0.50 10*3/uL LAB HEMATOLOGY METHOD 05/22/2025 11:27 AM EDT [facility] Basophils Absolute 0.04 0.00 - 0.10 10*3/uL LAB HEMATOLOGY METHOD 05/22/2025 11:27 AM EDT [facility] Immature Granulocytes Absolute 0.01 0.00 - 0.06 10*3/uL LAB HEMATOLOGY METHOD 05/22/2025 11:27 AM EDT [facility] Blood Venous blood specimen / Unknown Venipuncture / Unknown 05/22/2025 9:55 AM EDT 05/22/2025 9:55 AM EDT Narrative [facility] - 05/22/2025 11:27 AM EDT Therapeutic decision making should be based on absolute values, rather than percentages. us Alfredo GRACE [facility] BLOOD ORDERABLES Final Re sult Performing Organization Address [facility] de Phone Number [facility] [address] [place] [address] * Sedimentation Rate, Automated (05/22/2025 9:55 AM EDT) Sedimentation Rate 23 <30 mm/hr 2024 11:23 AM EDT [facility] Blood Venous blood specimen / Unknown Venipuncture / Unknown 05/22/2025 9:55 AM EDT 05/22/2025 9:55 AM EDT us Alfredo GRACE LAB BLOOD ORDERABLES Final Re sult Performing Organization Address [facility] Co de Phone Number [facility] [address] [place] [address] * C-Reactive Protein, Plasma (05/22/2025 9:55 AM EDT) CRP, Plasma <3.0 <=8.0 mg/L 05/22/2025 11:35 AM EDT [facility] Blood Venous blood specimen / Unknown Venipuncture / Unknown 05/22/2025 9:55 AM EDT 05/22/2025 9:55 AM EDT Narrative [facility] - 05/22/2025 11:35 AM EDT This CRP test is appropriate for assessment of infection, systemic inflammation and/or tissue injury. To assess cardiovascular disease risk order high sensitivity CRP (CRPH). Alfredo GRACE [facility] BLOOD ORDERABLES Final Re sult [facility] [address] [place] [address] documented in this encounter Visit Diagnoses Diagnosis S/P total knee arthroplasty, right- Primary Bleeding Unspecified hemorrhage documented in this encounter Additional Health Concerns Active Problems Noted Date Diagnosed Date Autogenerated Problem 04/08/2025 Assessment Noted Time A fall risk assessment has been complete d for the patient 05/06/2025 2:38 PM EDT A Body Mass Index follow-up plan has been documented for the patient 05/06/2025 3:08 PM EDT documented as of this encounter Care Teams Back Tender Insulation Board Relationship Specialty Start Date End Date Ronald Roca MD [address] [place] [address] PCP - General 03/11/21 documented as of this encounter
--- OUTSIDE RECORDS SUMMARY | 2025-06-03 13:28 | XMS_ITS | Encounter Summary ---
Author Organization [facility] Address [address] [place] [address] Care Team Providers Care Private Branch Exchange Service Adviser Name Role Phone Ronald Roca MD Primary Care Provider [phone] Reason for Visit * Reason Onset Date Comments HCN - Patient Message 04/08/2025 Encounter Details Date Type Department Care Team ([facility] st Contact Info) Description 04/08/2025 Telephone Medical Office Building Surgery Spine & Joint [address] [facility], [address] [place] [address] Jens Carbone MD [address] [place] [address] HCN - Patient Message Social [...] encounter Miscellaneous Notes * Telephone Encounter - Eboni Pyle - 04/08/2025 3:05 PM EDT Patient scheduled for surgery 04/21 * Telephone Encounter - Ebony Flower - 04/08/2025 2:42 PM EDT Clinical Concern/Question Reason for Call: Dr Carbone patient is calling. She states that she is calling about her surgery and when the appointment is. She is also just checking on the status of the message that was put in on 04/06/2025. A secure chat was sent, but no one was available. The patient is requesting a call back. Best contact number: [phone] (mobile) Optimal time of day to reach caller: ANYTIME Additional comments/information from caller: None Note: Please do not reply to this message. Follow-up communication and further actions as a result of this message need to be communicated with the patient directly, if the patient is not active onMyChart. If the patient is active on MyChart, they will receive notification of the communication/outcome via [employer]. documented in this encounter Plan of Treatment Upcoming Encounters Date Type Department Care Team ([facility] st Contact Info) Description 06/08/2025 3:20 PM EDT Office Visit Medical Office Building Surgery Spine & Joint [address] [facility], [address] [place] [address] Jens Carbone MD [address] [place] [address] 08/24/2025 3:00 PM EDT Ovarian Cancer Screening [facility] Gynecology [address] [facility], [address]rd [place] [address] documented as of this encounter Goals Goal [...] has been complete d for the patient 01/19/2025 2:00 PM EDT A Body Mass Index follow-up plan has been documented for the patient 01/19/2025 3:57 PM EDT documented as of this encounter Care Teams Private Branch Exchange Service Adviser Relationship Specialty Start Date End Date Ronald Roca MD [address] [place] [address] PCP - General 03/11/21 documented as of this encounter
--- OUTSIDE RECORDS SUMMARY | 2025-06-03 13:28 | XMS_ITS | Encounter Summary ---
Author Organization [facility] Address [address] [place] [address] Care Team Providers Care Exchange Operator Name Role Phone Ronald Roca MD Primary Care Provider [phone] Encounter Details Date Type Department Care Team (Late Contact Info) Description 04/27/2025 Plan of Care Documentation Medical Office Building Physical Therapy [address] [facility], [address] [place] [address] Social History Tobacco Use Types [...] Upcoming Encounters Date Type Department Care Team ([facility] Contact Info) Description 06/08/2025 3:20 PM EDT Office Visit Medical Office Building Surgery Spine & Joint [address] [facility], [address] [place] [address] Jens Carbone MD [address] [place] [address] 08/24/2025 3:00 PM EDT Ovarian Cancer Screening [facility] [address] , [address] [place] [address] documented as of this encounter Goals Goal [...] documented as of this encounter Care Teams Exchange Operator Relationship Specialty Start Date End Date Ronald Roca MD [address] [place] [address] PCP - General 03/11/21 documented as of this encounter
--- OUTSIDE RECORDS SUMMARY | 2025-06-03 13:28 | XMS_ITS | Encounter Summary ---
Author Organization [facility] Address [address] [place] [address] Care Team Providers Care It Support Manager Name Role Phone Ronald Roca MD Primary Care Provider [phone] Encounter Details Date Type Department Care Team ([facility] Contact Info) Description 05/11/2025 Orders Only [facility] Orthopaedic Surgery & Sports Medicine [address] [place] [address] Pari Singleton MD [address] [place], [place] [id number] Social History Tobacco Use Types Packs/Day Years [...] Joint [address], [address] [place] [address] Jens Carbone MD [address] [place] [address] 08/24/2025 3:00 PM EDT Ovarian Cancer Screening [facility] Gynecology [address] [facility], 3rd [place] [address] documented as of this encounter Goals Goal [...] documented as of this encounter Care Teams It Support Manager Relationship Specialty Start Date End Date Ronald Roca MD [address] [place] [address] PCP - General 03/11/21 documented as of this encounter
--- OUTSIDE RECORDS SUMMARY | 2025-06-03 13:28 | XMS_ITS | Encounter Summary ---
Author Organization [facility] Address [address] [place] [address] Care Team Providers Care Dynamics Ax Technical Architect Name Role Phone Ronald Roca MD Primary Care Provider [phone] Reason for Visit * Reason Onset Date Comments HCN - Patient Message 05/21/2025 Encounter Details Date Type Department Care Team ([facility] st Contact Info) Description 05/21/2025 Telephone Medical Office Building Surgery Spine & Joint [address] [facility], [address] [place] [address] Jens Carbone MD [address] [place] [address] HCN - Patient Message Social [...] Telephone Encounter - Nilsa Kitchen RN - 05/22/2025 8:47 AM EDT Patient scheduled to see Alfredo Gonzales in clinic today at 1120. * Telephone Encounter - Nilsa Kitchen RN - 05/21/2025 3:20 PM EDT Patient denies red flag s/s for infection and DVT. * Telephone Encounter - Es Sosa - 05/21/2025 11:16 AM EDT Clinical Concern/Question PAULINA Reason for Call: Patient called stating her therapist found a spot on her thigh and told her to go to the ED. The place gets bigger throughout the day . Patient says it isn't red but it is very painful and large. She said he would like for a member of the clinical staff to call him back to discussher care. His name is Agustin Palacio #[phone]. Best contact number: [phone] (mobile) Optimal time of day to reach caller: ANYTIME Additional comments/information from caller: None Note: Please do not reply to this message. Follow-up communication and further actions as a result of this message need to be communicated with the patient directly, if the patient is not active onMyChart. If the patient is active on MyChart, they will receive notification of the communication/outcome via [employer]. documented in this encounter Plan of Treatment Upcoming Encounters Date Type Department Care Team (Late st Contact Info) Description 06/08/2025 3:20 PM EDT Office Visit Medical Office Building Surgery Spine & Joint [address] [facility], [address] [place] [address] Jens Carbone MD [address] [facility] [address] [place] [address] 08/24/2025 3:00 PM EDT Ovarian Cancer Screening [facility] [address] [place] [address] documented as of this encounter Goals Goal [...] documented as of this encounter Care Teams Dynamics Ax Technical Architect Relationship Specialty Start Date End Date Ronald Roca MD [address] [place] [address] PCP - General 03/11/21 documented as of this encounter
--- OUTSIDE RECORDS SUMMARY | 2025-06-03 13:28 | XMS_ITS | Clinical Summary ---
Author Organization [facility] Address [address] [place] [address] Care Team Providers Care Buffet Attendant Name Role Phone Ronald Roca MD Primary Care Provider [phone] Allergies Active Allergy Reactions Criticality Noted Date Comments Amoxicillin Other - please docum ent in the comment field Low 08/18/2024 Cephalexin Itching,Hives,Unknow n - Patient states they do not know rxn details,Rash Medium 03/18/2015 Clarithromycin Other - please docum ent in the comment field Low 08/18/2024 Diphenhydramine Rash Low 05/01/2020 Loratadine-Pseudoephedrine Er Unknown - Patient states they do not know rxn details Low 08/18/2024 Morphine Itching,Unknown - Patient states they do not know rxn details Medium 06/06/2017 Phenobarbital Itching,Hives,Unknow n - Patient states they do not know rxn details Medium 03/18/2015 Tetracyclines & Related Hives Medium 07/07/2016 Trimethoprim Unknown - Patient states they do not know rxn details Low 08/18/2024 Medications ALPRAZolam (Xanax) 0.5 MG tablet Take 1 tablet by mouth 3 times a day. 01/10/20 Active cholecalcifero l (Vitamin D-3) 125 MCG (5000 UT) capsule Take 1 capsule by mouth. Active lisinopril-hyd roCHLOROthiazi de 20-12.5 MG tablet Take 1 tablet by mouth daily. 05/31/20 21 Active Probiotic Product (acidophilus probiotic blend) capsule Take 1 capsule by mouth daily. Active diclofenac (Voltaren) 1 % topical gelIndications :Arthritis of right knee Place on the skin 2 (two) times a day. 100 g 2 10/03/20 21 Active omeprazole (PriLOSEC) [address] capsule Take 1 capsule by mouth daily. 12/26/19 22 Active denosumab (Prolia) 60 MG/ML injection as directed Subcutaneous every 6 months 03/17/20 24 Active Roflumilast 0.3 % cream Apply 1 Dose topically 1 (one) time each day. 07/22/20 24 Active pancrelipase, Vxt-Gshf-Xbhb, (Zenpep) 3000-96078 units capsule delayed-releas e particles capsule Take 2 capsules by mouth 3 times a day with meals. 2 capsule 4000 units before each meal and 1 before snack. Active naloxone (Narcan) 4 mg/0.1 mL nasal spray 1. Give 1 spray in nostril for no/slow breathing or cannot wake after opioid use 2. Call 911 3. Repeat in other nostril if symptoms continue 1 each 04/23/20 25 Active nutritional drink (Boost Plus) liquid liquid Twice daily Disp 1 case 237 mL 04/23/20 25 Active oxyCODONE (Roxicodone) 5 MG immediate release tablet Take 1 tablet by mouth every 8 hours as needed for moderate pain or severe pain. 21 tablet 05/11/20 25 Active methocarbamol (Robaxin) 500 MG tablet Take 1 tablet by mouth 3 times a day as needed for muscle spasms. 30 tablet 05/11/20 25 Active methylPREDNISo lone (Medrol) 4 MG tabletIndicati ons:S/P total knee arthroplasty, right Take one tablet TID day one, Then BID day 2 and day 3, Then one a day days 4, 5 and 6. 10 tablet 05/22/20 25 Active acetaminophen (Tylenol Extra Strength) 500 MG tablet Take 2 tablets by mouth every 8 hours. 100 tablet 05/22/20 25 Active oxyCODONE (Roxicodone) 5 MG immediate release tablet Take 1 tablet by mouth every 6 hours as needed for moderate pain or severe pain. 50 tablet 04/21/20 25 025 Discontinu ed(Reorder ) methocarbamol (Robaxin) 500 MG tablet Take 1 tablet by mouth 3 times a day as needed for muscle spasms. 30 tablet 04/23/20 25 025 Discontinu ed(Reorder ) aspirin 81 MG EC tablet Take 1 tablet by mouth 2 times a day for 28 days. For 4 weeks post-op for blood clot prevention 56 tablet 04/23/20 025 docusate sodium (Colace) 250 MG capsule Take 1 capsule by mouth 2 times a day. 60 capsule 04/23/20 025 meloxicam (Mobic) 15 MG tablet Take 1 tablet by mouth daily. For 4 weeks post-op 30 tablet 04/23/20 025 acetaminophen (Tylenol Extra Strength) 500 MG tablet Take 2 tablets by mouth every 8 hours. 100 tablet 04/23/20 025 Discontinu ed(Reorder ) traMADol (Ultram) 50 MG tablet Take 1 or 2 tablets every 4-6 hours as needed for moderate pain 56 tablet 04/23/20 25 025 Discontinu ed(Formula ry change) traMADol (Ultram) 50 MG tabletIndicati ons:Pain Take 1 tablet by mouth 3 times a day as needed for moderate pain or severe pain for up to 10 days. 30 tablet 05/06/20 25 025 Active Problems Problem Noted Date Diagnosed Date Primary osteoarthritis of one knee, right 2024 Primary osteoarthritis of right knee 04/06/2025 Iron deficiency anemia, unspecified 01/31/2024 Other nonrheumatic aortic valve disorders 2023 Other specified diseases of pancreas 01/31/2024 Age-related osteoporosis wit hout current pathological fracture 01/25/2024 Deficiency of other specified B group vitamins 0 12/20/2023 Vitamin D deficiency, unspecified 12/20/2023 Frequency of micturition 12/20/2023 Iron deficiency 12/20/2023 Influenza due to other ident ified influenza virus with other respiratory manifestations 12/18/2023 Other specified symptoms and signs involving the circulatory and respiratory systems 12/18/2023 Dizziness and giddiness 12/10/2023 Diarrhea, unspecified 11/15/2023 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/15/2023 Anemia, unspecified 08/16/2023 Chest pain, unspecified 08/01/2023 Unspecified speech disturbances 08/01/2023 Seborrheic dermatitis, unspecified 05/15/2023 Psoriasis, unspecified 05/15/2023 Bone spur 08/23/2022 Arthritis of right knee 2021 Multifocal pneumonia 05/01/2020 Hyperlipidemia 05/01/2020 GERD (gastroesophageal reflux disease) 0 Pure hypercholesterolemia 05/01/2020 Anxiety 07/10/2019 PAC (premature atrial contraction) 07/10/2019 Overview (05/05/2024): January 2019 - Holter 7500 PACs Pes anserine bursitis 08/29/2017 S/P total knee arthroplasty 05/04/2017 Osteoarthritis of both knees 03/12/2017 Osteopenia 12/11/2016 Essential hypertension 03/18/2015 Palpitations 03/18/2015 Encounters Date Type Department Care Team Description 05/22/2025 11:20 AM EDT Office Visit Medical Office Building Surgery [facility] [address], [address] [place] [address] Alfredo Gonzales PA S/P total knee arthroplasty, right (Primary Dx) 05/22/2025 Travel 05/21/2025 Orders Only Medical Office Building [facility] [address], [address] [place] [address] Alfredo Gonzales PA S/P total knee arthroplasty, right (Primary Dx); Bleeding 05/21/2025 Telephone Medical Office Building [facility] [address], [address] [place] [address] Jens Carbone MD HCN - Patient Message 05/19/2025 Telephone Medical Office Building [facility] [address], [address] [place] [address] Jens Carbone MD 05/11/2025 Telephone Medical Office Building [facility] [address], [address] [place] [address] Jens Carbone MD 05/11/2025 Orders Only [facility] Orthopaedic Surgery & Sports Medicine [address], [address] [place] [address] Pari Singleton MD 05/11/2025 Refill Medical Office Building [facility] [address], [address] [place] [address] Jens Carbone MD 05/06/2025 2:30 PM EDT Office Visit Medical Office Building [facility] [address], [address] [place] [address] Alfredo Gonzales PA S/P total knee arthroplasty, right (Primary Dx) 05/06/2025 Travel 05/05/2025 Telephone Medical Office Building [facility] [address], [address] [place] [address] Jens Carbone MD HCN - Patient Message 04/30/2025 1:19 PM EDT - 04/30/2025 11:59 PM EDT Hospital Encounter Medical Office Building Physical Therapy [address], [address] [place] [address] Arely Gregory Primary osteoarthritis of one knee, right (Primary Dx) Discharge Disposition: Still a Patient 04/30/2025 Travel 04/27/2025 10:44 AM EDT - 04/27/2025 11:59 PM EDT Hospital Encounter Medical Office Building Physical Therapy [address], [address] [place] [address] Arely Gregory Primary osteoarthritis of one knee, right (Primary Dx) Discharge Disposition: Still a Patient 04/27/2025 Plan of Care Documentation Medical Office Building Physical Therapy [address], [address] [place] [address] 04/27/2025 Travel 04/21/2025 12:30 PM EDT - 04/21/2025 2:45 PM EDT Surgery [facility] Operating Room [address] [place] [address] Jens Carbone MD ARTHROPLASTY, KNEE, TOTAL [[id number] (CPT )] 04/21/2025 11:56 AM EDT Anesthesia Event [facility] Operating Room [address] [place] [phone] Luis Corbett, ENVIRONMENTAL STUDIES DEPARTMENT CHAIR, DNP Beni Oh MD 04/21/2025 8:44 AM EDT - 04/23/2025 1:06 PM EDT Hospital Encounter [facility] S Inpatient [address] [place] [id number] Jens Carbone MD Primary osteoarthritis of right knee (Primary Dx) Discharge Disposition: Home or Self Care 04/21/2025 Travel 04/15/2025 1:15 PM EDT Pre-Admission Testing [facility] Anesthesia [address] [id number] 04/15/2025 Travel 04/13/2025 2:27 PM EDT - 04/13/2025 11:59 PM EDT Hospital Encounter Medical Office Building Radiology [address] [place] [address] Right knee pain, unspecified chronicity Discharge Disposition: Home or Self Care 04/13/2025 1:20 PM EDT Office Visit Medical Office Building Surgery [facility] [address], [address] [place] [address] Jens Carbone MD Primary osteoarthritis of right knee (Primary Dx); Right knee pain, unspecified chronicity 04/13/2025 Travel 04/08/2025 Telephone Medical Office Building Surgery [facility] [address], [address] [place] [address] Jens Carbone MD HCN - Patient Message 04/06/2025 Orders Only Medical Office Building Surgery Sp[facility] [address], [address] [place] [address] Alfredo Gonzales PA Primary osteoarthritis of right knee (Primary Dx); Primary osteoarthritis, other specified site 04/06/2025 Telephone Medical Office Building Surgery [facility] [address], [address] [place] [address] Jens Carbone MD HCN - Patient Message from Last 3 Months Immunizations Immunization Administration Dates Next Due Influenza Vaccine, Quadrival ent, Adjuvanted 09/01/2009 Influenza, high-dose, quadrivalent 08/18/2015 Influenza, seasonal, injectable 09/19/20 13,08/21/2012,08/18/2010,08/19,08/19/2008,09/05/2007,09/15/2005 Influenza, seasonal, injecta ble, preservative free 08/17/2011 Pneumococcal Conjugate PCV 13 10/07/2015 Pneumococcal Polysaccharide PPV23 02/05/2019 TD (adult), 2 Lf tetanus tox oid, preservative free, adsorbed 01/01/1997 Tdap 03/26/2018 Family History Medical History Relation Name Comments Cardiac disorder Other 1 Stroke Other 2 Diabetes Other 3 Hypertension Other 4 Other cancer Other 5 Heart attack Other 6 Anesthesia problems Neg Hx Malig Hyperthermia Neg Hx Relation Name Status Comments Other 1 Other 2 Other 3 Other 4 Other 5 Other 6 Social History Tobacco Use Types Packs/Day Years [...] on file Sexual Orientation Not on file Last Filed Vital Signs Vital Sign Reading Time Taken Comments Blood Pressure 147/79 05/22/2025 10:42 AM EDT Pulse 79 05/22/2025 10:42 AM EDT Temperature 36.9 C (98.4 F) 05/06/2025 2:38 PM EDT Respiratory Rate 18 05/06/2025 2:38 PM EDT Oxygen Saturation 98% 05/22/2025 10:42 AM EDT Inhaled Oxygen Concentration - - Weight 82 kg (180 lb 12.4 oz) 05/22/2025 10:42 A M EDT Height 165.1 cm (5' 5 ) 05/22/2025 10:42 AM EDT Body Mass Index 30.08 05/22/2025 10:42 AM EDT Plan of Treatment Upcoming Encounters Date Type Department Care Team ([facility] st Contact Info) Description 06/08/2025 3:20 PM EDT Office Visit Medical Office Building Surgery Spine & Joint [address], [address] [place] [address] Jens Carbone MD [address] [facility] [address] [place] [address] 08/24/2025 3:00 PM EDT Ovarian Cancer Screening [facility] Gynecology [address] [place] [address] Health Maintenance Due Date Last Done Comments [facility]-Depression Screening 1945 [facility]-Hepatitis C Screening 1945 [facility]-Medicare Annual Wellness (AWV) 1945 [facility]-/Child/Adol SDOH Screenings 1945 [facility]- SDOH Screenings 1965 [facility]-Adult SDOH Screenings 1965 [facility]-Zoster Vaccines (1 of 2) 1997 [facility]-Bone Density Scan 11/26/2014 11/26/2013 [facility]-RSV Vaccine: 60+ Years or (1 - 1-dose 75+ series) 2022 [id number] Vaccine (4 - 2023- season) 2024 11/02/2021, 01/05/2021, 12/08/2020 [facility]-Influenza Vaccine (#1) 06/29/202508/18, 09/19/2013, 08/21/2012, Additional history exists [facility]-DTaP,Tdap,and Td Vaccines (2 - Td or Tdap) 03/26/2028 03/26/2018, 01/01/1997 [facility]-Pneumococcal Vaccine: 50+ Years Completed 02/05/2019, 10/07/2015 [facility]-Breast Cancer Screening Discontinued 09/08/2024, 09/08/2024, 09/05/2023, Additional history exists [facility]-Obesity Intervention Completed 025, 05/06/2025, 04/13/2025, Additional history exists HPV Vaccines Aged Out No longer eligi ble based on patient's age to complete this topic [facility]-HIB Vaccines Aged Out No longer e ligible based on patient's age to complete this topic [facility]-Hepatitis A Vaccines Aged Out No longer eligible based on patient's age to complete this topic [facility]-IPV Vaccines Aged Out No longer e ligible based on patient's age to complete this topic [facility]-Rotavirus Vaccines Aged Out No lo nger eligible based on patient's age to complete this topic Goals Goal Patient Goal Type Associated Problems Recent Progress Patient-Stated? Author Autogenerat ed Goal Care Plan Autogenerated Problem No [employer] Implanted Type Area Manager Heavy Duty Device Identifier Shelf Expiration Date Model / Serial / Lot Cement Palacos - [id number] Implanted:Qty: 2 on 04/21/2025 by Jens Carbone MD at [facility] Right: Knee [employer]-[id number] 10/28/2029 [id number] / / [id number] Chg Femoral Legion Cr Nrrw Oxin Sz6 Rt - [id number] Implanted:Qty: 1 on 04/21/2025 by Jens Carbone MD at [facility] Right: Knee [employer]-[id number] 02/22/2035 [id number] / / [id number] Chg Tibial [employer] Motion Picture Commentator R - [id number] Implanted:Qty: 1 on 04/21/2025 by Jens Carbone MD at [facility] Right: Knee [employer]-[id number] 03/11/2032 [id number] / / [id number] Chg Patella Gii Oval Resurfaci - [id number] Implanted:Qty: 1 on 04/21/2025 by Jens Carbone MD at [facility] Right: Knee [employer]-[id number] 10/27/2034 [id number] / / [id number] Insert Xlpe Legion Crdd W/Jrny Lck Sz3-4/11mm - [id number] Implanted:Qty: 1 on 04/21/2025 by Jens Carbone MD at [facility] Right: Knee [employer]-[id number] 10/31/2031 [id number] / / [id number] Procedures Procedure Name Priority Date/Time Associated Diagnosis Comments C-REACTIVE PROTEIN, PLASMA Routine 05/22/2025 9:55 AM EDT S/P total knee arthroplasty, right SEDIMENTATION RATE, AUTOMATED Routine 05/22/2025 9:55 AM EDT S/P total knee arthroplasty, right CBC WITH AUTO DIFFERENTIAL Routine 05/22/2025 9:55 AM EDT S/P total knee arthroplasty, right PROTHROMBIN TIME(PT) / INR Routine 05/22/2025 9:55 AM EDT S/P total knee arthroplasty, right Bleeding BASIC METABOLIC PANEL, PLASMA Routine 04/22/2025 2:09 AM EDT POCT GLUCOSE METER UNSOLICITED RESULTS Routine 04/21/2025 3:33 PM EDT XR KNEE RIGHT 1 OR 2 VIEWS Routine 04/21/2025 2:30 PM EDT IA TOTAL KNEE ARTHROPLASTY 04/21/2025 11:43 AM EDT Primary osteoarthritis of right knee PB ANESTHESIA NON-TIMED PROCEDURE PLACEHOLDER Routine 04/21/2025 11:42 AM EDT CBC W/O DIFFERENTIAL Routine 04/13/2025 3:03 PM EDT Primary osteoarthritis of right knee Primary osteoarthritis, other specified site BASIC METABOLIC PANEL, PLASMA Routine 04/13/2025 3:03 PM EDT Primary osteoarthritis of right knee ALBUMIN, PLASMA Routine 04/13/2025 3:03 PM EDT Primary osteoarthritis of right knee XR KNEE RIGHT 4+ VIEWS Routine 04/13/2025 2:51 PM EDT Right knee pain, unspecified chronicity from Last 3 Months Results * Sedimentation Rate, Automated (05/22/2025 9:55 AM EDT) Sedimentation Rate 23 <30 mm/hr 2024 11:23 AM EDT [facility] Blood Venous blood specimen / Unknown Venipuncture / Unknown 05/22/2025 9:55 AM EDT 05/22/2025 9:55 AM EDT Alfredo GRACE LAB BLOOD ORDERABLES Final Re sult Performing Organization Address City/[facility]/ZIP Co de Phone Number [facility] [address] [place] [address] * Protime-INR (05/22/2025 9:55 AM EDT) Prothrombin Time 13.7 12.0 - 14.3 sec 05/22/2025 11:49 AM EDT [facility] INR 1.0 0.9 - 1.1 05/22/2025 11:49 AM EDT [facility] Blood Venous blood specimen / Unknown Venipuncture / Unknown 05/22/2025 9:55 AM EDT 05/22/2025 9:55 AM EDT Narrative [facility] - 05/22/2025 11:49 AM EDT OPTIMAL INR RANGES FOR PATIENT ON ORAL ANTICOAGULANT THERAPY Prevention of venous thromboembolism INR 2.0 to 3.0 In patients with heart disease: Atrial fibrillation INR 2.0 to 3.0 Valvular heart disease INR 2.0 to 3.0 Tissue heart valves INR 2.0 to 3.0 Mechanical prosthetic valves INR 2.5 to 3.5 Prevention of recurrent CA INR 2.5 to 3.5 Alfredo GRACE LAB BLOOD ORDERABLES Final Re sult Performing Organization Address City/[facility] Co de Phone Number [facility] [address] [place] [address] * (ABNORMAL) CBC with Differential (05/22/2025 9:55 AM EDT) WBC Count 4.77 3.70 - 10.30 10*3/uL LAB HEMATOLOGY METHOD 05/22/2025 11:27 AM EDT [facility] RBC Count 3.87(L) 3.90 - 5.20 10*6/uL LAB HEMATOLOGY METHOD 05/22/2025 11:27 AM EDT [facility] HGB 11.5 11.2 - 15.7 g/dL LAB HEMATOLOGY METHOD 05/22/2025 11:27 AM EDT [facility] HCT 35.3 34.0 - 45.0 % LAB HEMATOLOGY METHOD 05/22/2025 11:27 AM EDT [facility] Platelet Count 335 155 - 369 10*3/uL LAB HEMATOLOGY METHOD 05/22/2025 11:27 AM EDT [facility] MCV 91 79 - 98 fL LAB HEMATOLOGY METHOD 05/22/2025 11:27 AM EDT [facility] MCH 29.7 26.0 - 32.0 pg LAB HEMATOLOGY METHOD 05/22/2025 11:27 AM EDT [facility] MCHC 32.6 30.7 - 35.5 g/dL LAB HEMATOLOGY METHOD 05/22/2025 11:27 AM EDT [facility] RDW 13.8 11.5 - 14.5 % LAB HEMATOLOGY METHOD 05/22/2025 11:27 AM EDT [facility] MPV 9.8 8.8 - 12.5 fL LAB HEMATOLOGY METHOD 05/22/2025 11:27 AM EDT [facility] nRBC 0.0 <=0.0 per 100 WBCs LAB HEMATOLOGY METHOD 05/22/2025 11:27 AM EDT [facility] Differential Type Automated LAB HEMATOLOGY METHOD 05/22/2025 11:27 AM EDT [facility] Neutrophils % 72 % LAB HEMATOLOGY METHOD 05/22/2025 11:27 AM EDT [facility] Lymphocytes % 19 % LAB HEMATOLOGY METHOD 05/22/2025 11:27 AM EDT [facility] Monocytes % 6 % LAB HEMATOLOGY METHOD 05/22/2025 11:27 AM EDT [facility] Eosinophils % 2 % LAB HEMATOLOGY METHOD 05/22/2025 11:27 AM EDT [facility] Basophils % 1 % LAB HEMATOLOGY METHOD 05/22/2025 11:27 AM EDT [facility] Immature Granulocytes % 0 % LAB HEMATOLOGY METHOD 05/22/2025 11:27 AM EDT [facility] Neutrophils Absolute 3.46 1.60 - 6.10 10*3/uL LAB HEMATOLOGY METHOD 05/22/2025 11:27 AM EDT [facility] Lymphocytes Absolute 0.90(L) 1.20 - 3.90 10*3/uL LAB HEMATOLOGY METHOD 05/22/2025 11:27 AM EDT [facility] Monocytes Absolute 0.27(L) 0.30 - 0.90 10*3/uL LAB HEMATOLOGY METHOD 05/22/2025 11:27 AM EDT [facility] Eosinophils Absolute 0.09 0.00 - 0.50 10*3/uL LAB HEMATOLOGY METHOD 05/22/2025 11:27 AM EDT [facility] Basophils Absolute 0.04 0.00 - 0.10 10*3/uL LAB HEMATOLOGY METHOD 05/22/2025 11:27 AM EDT [facility] Immature Granulocytes Absolute 0.01 0.00 - 0.06 10*3/uL LAB HEMATOLOGY METHOD 05/22/2025 11:27 AM EDT [facility] Blood Venous blood specimen / Unknown Venipuncture / Unknown 05/22/2025 9:55 AM EDT 05/22/2025 9:55 AM EDT Narrative [facility] - 05/22/2025 11:27 AM EDT Therapeutic decision making should be based on absolute values, rather than percentages. Alfredo GRACE LAB BLOOD ORDERABLES Final Re sult Performing Organization Address [facility] Co de Phone Number [facility] [address] [place] [address] * C-Reactive Protein, Plasma (05/22/2025 9:55 AM EDT) CRP, Plasma <3.0 <=8.0 mg/L 05/22/2025 11:35 AM EDT [facility] Blood Venous blood specimen / Unknown Venipuncture / Unknown 05/22/2025 9:55 AM EDT 05/22/2025 9:55 AM EDT Narrative [facility] - 05/22/2025 11:35 AM EDT This CRP test is appropriate for assessment of infection, systemic inflammation and/or tissue injury. To assess cardiovascular disease risk order high sensitivity CRP (CRPH). Alfredo GRACE LAB BLOOD ORDERABLES Final Re sult Performing Organization Address City/[facility]/ZIP Co de Phone Number [facility] [address] [place] [address] * (ABNORMAL) Basic metabolic panel (04/22/2025 2:09 AM EDT) Only the most recent of2 resultswithin the time period is included. Glucose, Plasma 104(H) 74 - 99 mg/dL 04/22/2025 3:39 AM EDT [facility] BUN, Plasma 10 8 - 23 mg/dL 04/22/2025 3:39 AM EDT [facility] Creatinine, Plasma 0.78 0.60 - 1.10 mg/dL 04/22/2025 3:39 AM EDT [facility] BUN/Creatinine Ratio 13 04/22/2025 3:39 AM EDT [facility] Sodium, Plasma 132(L) 136 - 145 mmol/L 04/22/2025 3:39 AM EDT [facility] Potassium, Plasma 4.0 3.6 - 4.9 mmol/L 04/22/2025 3:39 AM EDT [facility] Chloride, Plasma 99 97 - 107 mmol/L 04/22/2025 3:39 AM EDT [facility] CO2, Plasma 23 22 - 29 mmol/L 04/22/2025 3:39 AM EDT [facility] Anion Gap 10 6 - 16 mmol/L 04/22/2025 3:39 AM EDT [facility] Total Calcium, Plasma 8.3(L) 8.9 - 10.2 mg/dL 04/22/2025 3:39 AM EDT [facility] eGFRcr 78.3 mL/min/1.7 3m*2 04/22/2025 3:39 AM EDT [facility] Comment:Reported eGFRcr in m L/min/1.73m2 is based the CKD-EPI 2020 equation that does not use a race coefficient. Blood Venous blood specimen / Unknown Venipuncture / Unknown 04/22/2025 2:09 AM EDT 04/22/2025 3:13 AM EDT Eliza Zaidi APRN LAB BLOOD ORDERABLES Final Re sult [facility] [address] [place] [address] * (ABNORMAL) POCT glucose meter (04/21/2025 3:33 PM EDT) [facility] POCT Glucose 114(H) 74 - 99 mg/dL 04/21/2025 3:34 PM EDT [facility] Comment:Accuracy of a glucos e result [...] for testing. Comment 04/21/2025 3:34 PM EDT [facility] Flue Cleaner ID Rut Gloria 04/21/20 3:34 PM EDT [facility] Device ID [id number] 04/21/2025 3:34 PM EDT [facility] Specimen Type POC Capillary 04/21/2025 3:34 PM EDT [facility] Blood Capillary blood specimen / Unknown 04/21/2025 3:33 PM EDT 04/21/2025 3:34 PM EDT Jens Carbone MD LAB POINT OF CARE TE ST DOCKED DEVICE UNSOLICITED RESULTS Final Result [facility] [address] [place] [address] * XR Knee Right 1 or 2 [...] MD IMG XR PROCEDURES Final Resul t * PB ANESTHESIA NON-TIMED PROCEDURE PLACEHOLDER (04/21/2025 [...] us Beni Oh MD ANESTHESIA ORDERABLES Chelsi l Result * CBC W/O Differential (04/13/2025 3:03 PM EDT) WBC Count 5.77 3.70 - 10.30 10*3/uL LAB HEMATOLOGY METHOD 04/13/2025 5:26 PM EDT [facility] RBC Count 4.68 3.90 - 5.20 10*6/uL LAB HEMATOLOGY METHOD 04/13/2025 5:26 PM EDT [facility] HGB 13.6 11.2 - 15.7 g/dL LAB HEMATOLOGY METHOD 04/13/2025 5:26 PM EDT [facility] HCT 42.6 34.0 - 45.0 % LAB HEMATOLOGY METHOD 04/13/2025 5:26 PM EDT [facility] Platelet Count 328 155 - 369 10*3/uL LAB HEMATOLOGY METHOD 04/13/2025 5:26 PM EDT [facility] MCV 91 79 - 98 fL LAB HEMATOLOGY METHOD 04/13/2025 5:26 PM EDT [facility] [facility] MCH 29.1 26.0 - 32.0 pg LAB HEMATOLOGY METHOD 04/13/2025 5:26 PM EDT [facility] MCHC 31.9 30.7 - 35.5 g/dL LAB HEMATOLOGY METHOD 04/13/2025 5:26 PM EDT [facility] RDW 13.1 11.5 - 14.5 % LAB HEMATOLOGY METHOD 04/13/2025 5:26 PM EDT [facility] MPV 10.4 8.8 - 12.5 fL LAB HEMATOLOGY METHOD 04/13/2025 5:26 PM EDT [facility] nRBC 0.0 <=0.0 per 100 WBCs LAB HEMATOLOGY METHOD 04/13/2025 5:26 PM EDT [facility] Blood Venous blood specimen / Unknown Venipuncture / Unknown 04/13/2025 3:03 PM EDT 04/13/2025 3:03 PM EDT us Alfredo GRACE LAB BLOOD ORDERABLES Final Re sult [facility] [address] [place] [address] * Albumin, Plasma (04/13/2025 3:03 PM EDT) [facility] Albumin, Plasma 4.5 3.5 - 5.2 g/dL 04/13/2025 5:48 PM EDT [facility] Blood Venous blood specimen / Unknown Venipuncture / Unknown 04/13/2025 3:03 PM EDT 04/13/2025 3:03 PM EDT us Alfredo GRACE LAB BLOOD ORDERABLES Final Re sult [facility] [address] [place] [address] * New Patient: XR Knee (Lateral / Dupont / Tunnel / AP Standing with Marker) [...] MD IMG XR PROCEDURES Final Resul t from Last 3 Months Additional Health Concerns Active Problems Noted Date Diagnosed Date Autogenerated Problem 04/08/2025 Insurance MEDICARE [place]ICAID[place] Advance Directives * Full Code (Latest Code Status on File) Date Activated Date Inactivated Comments 04/21/2025 2:57 PM 04/23/2025 3:11 PM Question Answer Comments I have reviewed the capacity from the link above and, if needed, have updated to appropriate status: Yes Care Teams Buffet Attendant Relationship Specialty Start Date End Date Ronald Roca MD [address] [place] [address] PCP - General 03/11/21
--- OUTSIDE RECORDS SUMMARY | 2025-06-03 13:28 | XMS_ITS | Encounter Summary ---
Author Organization Healthcare Address [address] [place] [address] Care Team Providers Care Textile Artist Name Role Phone Ronald Roca MD Primary Care Provider [phone] Encounter Details Date Type Department Care Team (Latest Contact Info) Description 04/13/2025 Travel Social History Tobacco Use Types Packs/Day [...] Surgery Spine & Joint [address] [facility], [address] [place] [address] Jens Carbone MD [address] [place] [address] 08/24/2025 3:00 PM EDT Ovarian Cancer Scre[facility] [address] , [address] [place] [phone] documented as of this encounter Goals Goal [...] documented as of this encounter Care Teams Textile Artist Relationship Specialty Start Date End Date Ronald Roca MD [address] [place] [address] PCP - General 03/11/21 documented as of this encounter
--- OUTSIDE RECORDS SUMMARY | 2025-06-03 13:28 | XMS_ITS | Encounter Summary ---
Author Organization [facility] Address [address] [place] [address] Care Team Providers Care Material Crew Supervisor Name Role Phone Ronald Roca MD Primary Care Provider [phone] Encounter Details Date Type Department Care Team ([facility] st Contact Info) Description 05/11/2025 Telephone Medical Office Building Surgery Spine & Joint [address] [facility], [address] [place] [address] Jens Carbone MD [address] [place] [address] Social History Tobacco Use Types [...] Telephone Encounter - Nilsa Kitchen RN - 05/13/2025 1:21 PM EDT Called patient and relayed message. Patient states understanding and denies further needs. * Telephone Encounter - Nilsa Kitchen RN - 05/12/2025 8:26 AM EDT Attempted to call patient. Unable to leave VM. documented in this encounter Plan of Treatment Upcoming Encounters Date Type Department Care Team (Late st Contact Info) Description 06/08/2025 3:20 PM EDT Office Visit Medical Office Building Surgery [facility] [address], [address] [place] [address] Jens Carbone MD [address] [place] [address] 08/24/2025 3:00 PM EDT Ovarian Cancer Screening [facility] [address] [place] [address] documented as of this encounter Goals Goal [...] documented as of this encounter Care Teams Material Crew Supervisor Relationship Specialty Start Date End Date Ronald Roca MD [address] [place] [address] PCP - General 03/11/21 documented as of this encounter
--- OUTSIDE RECORDS SUMMARY | 2025-06-03 13:28 | XMS_ITS | Encounter Summary ---
Author Organization Healthcare Address [address] [place] [address] Care Team Providers Care Heel Sprayer Name Role Phone Ronald Roca MD Primary Care Provider [phone] Encounter Details Date Type Department Care Team (Latest Contact Info) Description 04/30/2025 Travel Social History Tobacco Use Types Packs/Day [...] Building Surgery Spine & Joint [address] [facility], [address] [place] [address] Jens Carbone MD [address] [place] [address] 08/24/2025 3:00 PM EDT Ovarian Cancer Screening [facility] [address] [place] [phone] documented as of this encounter Goals Goal [...] documented as of this encounter Care Teams Heel Sprayer Relationship Specialty Start Date End Date Ronald Roca MD [address] [place] [address] PCP - General 03/11/21 documented as of this encounter
--- OUTSIDE RECORDS SUMMARY | 2025-06-03 13:29 | XMS_ITS ---
Care Plan Created on: June 03, 2025 Radha Lee : 1945 Sex: Female Author Organization [facility] Address [address] [place] [address] Care Team Providers Care Spine Supervisor Name Role Phone Ronald Roca MD Primary Care Provider [phone] Active Problems * This document contains information received from the source organization and may not represent a complete record from that organization. 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 Anemia, unspecified 08/16/2023 Unspecified speech disturbances 08/01/2023 Psoriasis, unspecified 05/15/2023 Seborrheic dermatitis, unspecified 05/15/2023 Bone spur 08/23/2022 GERD (gastroesophageal reflux disease) 0 Pure hypercholesterolemia 05/01/2020 Hyperlipidemia 05/01/2020 Essential hypertension 07/10/2019 Anxiety 07/10/2019 PAC (premature atrial contraction) 07/10/2019 Overview (06/23/2024): January 2019 - [facility] 7500 PACs January 2019 - [facility] 7500 PACs S/P total knee arthroplasty 05/04/2017 Osteoarthritis of both knees 03/12/2017 Osteopenia 12/11/2016 Palpitations 03/18/2015 Resolved Problems Problem Noted Date Diagnosed Date Resolved Date Pure hypercholesterolemia 07/10/2019 Additional Health Concerns Active Problems Noted Date Diagnosed Date Generalized Anxiety 08/22/2023 Goals Goal Patient Goal Type Associated Problems Recent Progress Patient-Stated? Author Alleviate symptoms of generalized anxiety Care Plan Generalized Anxiety No Orestes Simms MD Interventions Care Plan Interventions Intervention Entry Date Outcome Identify situational triggers for anxiety 08/22/2023 Identify and challenge negative automatic thoughts 08/22/2023 Gradually increase exposure to anxiety-provoking situations 08/22/2023 Identify anxious thought patterns 08/22/2023 Related Goals and Interventions Goal Associated Intervent ions Alleviate symptoms of generalized anxiet y Identify situational triggers for anxiety; Identify and challenge negative automatic thoughts; Gradually increase exposure to anxiety-provoking situations; Identify anxious thought patterns
--- OUTSIDE RECORDS SUMMARY | 2025-06-03 13:29 | XMS_ITS | Encounter Summary ---
Author Organization Healthcare Address [address] [place] [address] Care Team Providers Care Curtain Stitcher Name Role Phone Ronald Roca MD Primary Care Provider [phone] Reason for Referral * Consultation (Routine) - Authorized Specialty Diagnoses / Procedures Referred By Contac t Referred To Contact Anesthesiology Diagnoses Primary osteoarthritis of right knee Alfredo Gonzales PA [address] [place] [address] Phone: tel: fax: [facility] [address] [place] [address] Phone: tel: Referral ID Status Reason Start Date Expiration Date Visits Requested Visits Authorized [id number] Authorized Specialty Services Required 04/06/2025 10/06/2026 1 1 Encounter Details Date Type Department Care Team (Late st Contact Info) Description 04/06/2025 Orders Only Medical Office Building Surgery Spine & Joint [address], [address] [place] [address] Alfredo Gonzales PA [address] [place] [address] Primary osteoarthritis of right knee (Primary Dx); Primary osteoarthritis, other specified site Social History Tobacco Use Types Packs/Day Years [...] Progress Notes - Alfredo Gonzales PA - 04/06/2025 3:54 PM EDT The patient requests scheduling for right total knee arthroplasty. She underwent left total knee arthroplasty in years ago. Orders were placed for right standard total knee arthroplasty. documented in this encounter Plan of Treatment Upcoming Encounters Date Type Department Care Team (Late st Contact Info) Description 06/08/2025 3:20 PM EDT Office Visit Medical Office Building Surgery Spine & Joint [address] [facility], [address] [place] [address] Jens Carbone MD [address] [place] [address] 08/24/2025 3:00 PM EDT Ovarian Cancer Screening [facility] [address] [facility] [place] [address] Scheduled Referrals Name Type Priority Associated Diagnoses Orde r Schedule Ambulatory referral to Anesthesiology Outpatient Referral Routine Primary osteoarthritis of right knee 1 Occurrences starting 04/06/2025 until 10/08/2026 documented as of this encounter Results * Albumin, Plasma (04/13/2025 3:03 PM EDT) Albumin, Plasma 4.5 3.5 - 5.2 g/dL 04/13/2025 5:48 PM EDT [facility] Blood Venous blood specimen / Unknown Venipuncture / Unknown 04/13/2025 3:03 PM EDT 04/13/2025 3:03 PM EDT us Alfredo [facility]ACE LAB BLOOD ORDERABLES Final Re sult [facility] [address] [place] [address] * (ABNORMAL) Basic metabolic panel (04/13/2025 3:03 PM EDT) Glucose, Plasma 108(H) 74 - 99 mg/dL 04/13/2025 5:48 PM EDT [facility] BUN, Plasma 8 8 - 23 mg/dL 04/13/2025 5:48 PM EDT [facility] Creatinine, Plasma 0.86 0.60 - 1.10 mg/dL 04/13/2025 5:48 PM EDT [facility] BUN/Creatinine Ratio 9 04/13/2025 5:48 PM EDT [facility] Sodium, Plasma 136 136 - 145 mmol/L 04/13/2025 5:48 PM EDT [facility] Potassium, Plasma 3.7 3.6 - 4.9 mmol/L 04/13/2025 5:48 PM EDT [facility] Chloride, Plasma 97 97 - 107 mmol/L 04/13/2025 5:48 PM EDT [facility] CO2, Plasma 26 22 - 29 mmol/L 04/13/2025 5:48 PM EDT [facility] Anion Gap 13 6 - 16 mmol/L 04/13/2025 5:48 PM EDT [facility] Total Calcium, Plasma 9.2 8.9 - 10.2 mg/dL 04/13/2025 5:48 PM EDT [facility] eGFRcr 69.7 mL/min/1.7 3m*2 04/13/2025 5:48 PM EDT [facility] Comment:Reported eGFRcr in m L/min/1.73m2 is based the CKD-EPI 2020 equation that does not use a race coefficient. Blood Venous blood specimen / Unknown Venipuncture / Unknown 04/13/2025 3:03 PM EDT 04/13/2025 3:03 PM EDT us Alfredo GRACE [facility] BLOOD ORDERABLES Final Re sult [facility] [address] [place] [address] * CBC W/O Differential (04/13/2025 3:03 PM EDT) WBC Count 5.77 3.70 - 10.30 10*3/uL LAB HEMATOLOGY METHOD 04/13/2025 5:26 PM EDT [facility] RBC Count 4.68 3.90 - 5.20 10*6/uL LAB HEMATOLOGY METHOD 04/13/2025 5:26 PM EDT [facility] HGB 13.6 11.2 - 15.7 g/dL LAB HEMATOLOGY METHOD 04/13/2025 5:26 PM EDT [facility] HCT 42.6 34.0 - 45.0 % LAB HEMATOLOGY METHOD 04/13/2025 5:26 PM EDT [facility] Platelet Count 328 155 - 369 10*3/uL LAB HEMATOLOGY METHOD 04/13/2025 5:26 PM EDT [facility] MCV 91 79 - 98 fL LAB HEMATOLOGY METHOD 04/13/2025 5:26 PM EDT [facility] MCH 29.1 26.0 - 32.0 pg LAB HEMATOLOGY METHOD 04/13/2025 5:26 PM EDT [facility] MCHC 31.9 30.7 - 35.5 g/dL LAB HEMATOLOGY METHOD 04/13/2025 5:26 PM EDT [facility] RDW 13.1 11.5 - 14.5 % LAB HEMATOLOGY METHOD 04/13/2025 5:26 PM EDT [facility] MPV 10.4 8.8 - 12.5 fL LAB HEMATOLOGY METHOD 04/13/2025 5:26 PM EDT [facility] nRBC 0.0 <=0.0 per 100 WBCs LAB HEMATOLOGY METHOD 04/13/2025 5:26 PM EDT [facility] Blood Venous blood specimen / Unknown Venipuncture / Unknown 04/13/2025 3:03 PM EDT 04/13/2025 3:03 PM EDT us Alfredo GRACE LAB BLOOD ORDERABLES Final Re sult [facility] [address] [place] [address] documented in this encounter Visit Diagnoses Diagnosis Primary osteoarthritis of right knee- Primary Primary osteoarthritis, other specified site documented in this encounter Additional Health Concerns Assessment Noted Time A fall risk assessment has been complete d for the patient 01/19/2025 2:00 PM EDT A Body Mass Index follow-up plan has been documented for the patient 01/19/2025 3:57 PM EDT documented as of this encounter Care Teams Curtain Stitcher Relationship Specialty Start Date End Date Ronald Roca MD [address] [place] [address] PCP - General 03/11/21 documented as of this encounter
--- OUTSIDE RECORDS SUMMARY | 2025-06-03 13:29 | XMS_ITS | Encounter Summary ---
Author Organization Healthcare Address [address] [place] [address] Care Team Providers Care Er Physician Name Role Phone Ronald Roca MD Primary Care Provider [phone] Encounter Details Date Type Department Care Team (Latest Contact Info) Description 04/15/2025 Travel Social History Tobacco Use Types Packs/Day [...] Building Surgery Spine & Joint [address] [facility], [address] [place] [address] Jens Carbone MD [address] [place] [address] 08/24/2025 3:00 PM EDT Ovarian Cancer Screening [facility] [address] [place] [phone] documented as of this encounter Goals Goal [...] documented as of this encounter Care Teams Er Physician Relationship Specialty Start Date End Date Ronald Roca MD [address] [place] [address] PCP - General 03/11/21 documented as of this encounter
--- OUTSIDE RECORDS SUMMARY | 2025-06-03 13:29 | XMS_ITS | Patient Health Record ---
Author Organization [facility] Address [address] [address] [place] [address] Care Team Providers Care Jukebox Checker Name Role Phone Noy Kendrick [phone] Allergies Allergen (clinical drug ingredient) Drug/Non Drug Allergy documented on EMR Reaction Allergy Type Onset Date Status tetracycline TETRACYCLINE HCL Unspecified Drug Allergy 06/27 Active Reason For Referral No Information Problems Problem Type SNOMED Code ICD Code Onset Dates Problem Status W/U Status Risk Notes Problem Cervical smear, as part of routine gynecological examination (Z01.419) 9 Active confirmed Annual without abnormal findings Plan Of Treatment No Information Medical (General) History Medical History History ICD Code anxiety HTN obesity ulcers ABORTIONS: 1 METOPROLOL TARTRATE TABLET ALPRAZOLAM TABLET LISINOPRIL-HYDROCHLOROTHIAZIDE TABLET OMEPRAZOLE TABLET DELAYED RELEASE RALOXIFENE HCL TABLET SIMVASTATIN TABLET Surgical History Surgery Date(Month/Year) BTL cholecystectomy knee replacement
--- OUTSIDE RECORDS SUMMARY | 2025-06-03 13:29 | XMS_ITS | Clinical Summary ---
Author Organization [facility] Address [address] [place] [address] Care Team Providers Care Crepe Maker Name Role Phone Ronald Roca MD Primary Care Provider [phone] Allergies Active Allergy Reactions Criticality Noted Date Comments Diphenhydramine Rash Low 05/01/2020 Morphine Itching 02/24/2019 Tetracyclines & Related Hives 07/07/2016 Medications lisinopril-hydr ochlorothiazide (PRINZIDE,ZESTO RETIC) 20-12.5 MG per tablet Take 1 tablet by mouth Daily. 7 Active simvastatin (ZOCOR) 20 MG tablet Every Other Day. 7 Active ALPRAZolam (XANAX) 0.5 MG tablet 3 (Three) Times a Day As Needed. 7 Active omeprazole (priLOSEC) 20 MG capsule Take 20 mg by mouth Daily. Active Cyanocobalamin 1000 MCG/ML kit Inject 1 each as directed. Active Cholecalciferol (VITAMIN D3) 5000 UNITS capsule capsule Take 5,000 Units by mouth Daily. Active HYDROcodone-jazzy taminophen (NORCO) 5-325 MG per tablet Take 1 tablet by mouth Every 6 (Six) Hours As Needed for Severe Pain . 8 tablet 9 Active raloxifene (EVISTA) 60 MG tablet Take 60 mg by mouth Daily. Active hydrocortisone 1 % cream Apply topically to the appropriate area as directed 2 (Two) Times a Day As Needed for Irritation or Rash. Active Active Problems Problem Noted Date Diagnosed Date Multifocal pneumonia 05/01/2020 Hyperlipidemia 05/01/2020 Hypertension 05/01/2020 GERD (gastroesophageal reflux disease) 0 Osteopenia 12/11/2016 Resolved Problems Problem Noted Date Diagnosed Date Resolved Date Person under investigation for COVID-19 05/01/2020 05/02/2020 Family History Medical History Relation Name Comments Colon cancer Brother Lung cancer Brother Breast cancer Maternal Aunt Breast cancer Maternal Grandmother Heart disease Mother Breast cancer Sister Colon cancer Sister Ovarian cancer Sister Relation Name Status Comments Brother Maternal Aunt Maternal Grandmother Mother Sister Social History Tobacco Use Types Packs/Day Years Used Date Smoking Tobacco: Never Smokeless Tobacco: Never Alcohol Use Standard Drinks/Week Comments No 0 (1 standard drink = 0.6 oz pur e alcohol) AUDIT-C Answer Date Recorded Frequency of Alcohol Consumption Never 02/24/2019 Average Number of Drinks Not on file 019 Frequency of Binge Drinking Not on file 01/28 Comments No Sex and Gender Information Value Date Recorded Sex Assigned at Not on file Legal Sex Female 11:26 AM EDT Gender Identity Not on file Sexual Orientation Not on file Last Filed Vital Signs Vital Sign Reading Time Taken Comments Blood Pressure 153/67 05/03/2020 7:20 AM EDT Pulse 80 05/03/2020 7:20 AM EDT Temperature 37 C (98.6 F) 05/03/2020 7:20 AM EDT Respiratory Rate 18 05/03/2020 7:20 AM EDT Oxygen Saturation 96% 05/02/2020 6:54 AM EDT Inhaled Oxygen Concentration - - Weight 90.7 kg (200 lb) 05/01/2020 1:30 AM EDT Height 167.6 cm (5' 6 ) 05/01/2020 1:30 AM EDT Body Mass Index 32.28 05/01/2020 1:30 AM EDT Plan of Treatment Upcoming Encounters Date Type Department Care Team (Late st Contact Info) Description 09/15/2025 2:00 PM EST Appointment [facility] [address] [place] [address] Health Maintenance Due Date Last Done Comments LIPID PANEL 1945 ZOSTER VACCINE (1 of 2) 1997 ANNUAL WELLNESS VISIT 07/07/2016 HEPATITIS C SCREENING 07/07/2016 DXA SCAN 12/11/2018 12/11/2016, 11/26/2013 RSV Vaccine - Adults (1 - 1- dose 75+ series) 2022 COVID-19 Vaccine (4 - 2023-2 5 season) 2024 11/02/2021, 01/05/2021, 12/08/2020 INFLUENZA VACCINE 07/29/2025 08/18/2015, , 08/18/2010, Additional history exists TDAP/TD VACCINES (3 - Td or Tdap) 03/26/2028 018, 01/01/1997 Pneumococcal Vaccine 50+ Completed 02/05/2019, 09/28 COLONOSCOPY Discontinued 03/01/2022 COLORECTAL CANCER SCREENING Discontinued MAMMOGRAM Discontinued 09/08/2024, 05/2023, 08/28/2022, Additional history exists COLOGUARD Discontinued COLON CANCER SCREENING 5 YEA R SIGMOIDOSCOPY Discontinued CT COLONOGRAPHY Discontinued FECAL OCCULT BLOOD TEST Discontinued FIT Testing (1 year) Discontinued Procedures Procedure Name Priority Date/Time Associated Diagnosis Comments MAMMO SCREENING DIGITAL TOMOSYNTHESIS BILATERAL W CAD Routine 09/08/2024 2:46 PM EST Visit for screening mammogram DEXA BONE DENSITY AXIAL Routine 11/26/2013 12:50 PM EST from Last 3 Months or Most Recently Relevant to Health Maintenance Results * Mammo Screening Digital Tomosynthesis Bilateral With CAD (09/08/2024 2:46 PM EST) Anatomical Region Laterality Modality Breast N/A Mammography 09/11/2024 9:42 AM EST Impressions 09/11/2024 9:44 AM EST No mammographic findings suspicious for malignancy. RECOMMENDATION: Continue annual screening mammography. BI-RADS CATEGORY 1, NEGATIVE. CAD was utilized. The standard false-negative rate of mammography is between 10% and 25%. Complex patterns or increased breast density will markedly elevate the false-negative rate of mammography. A letter, in lay terminology, with the results of this exam will be mailed to the patient. This report was finalized on 09/11/2024 9:[address] Faviola Krueger MD. Narrative 09/11/2024 9:44 AM EST BILATERAL SCREENING MAMMOGRAM WITH TOMOSYNTHESIS: HISTORY: 79-year-old patient with no personal history of breast cancer and no new breast complaints. Her sister, maternal grandmother, and a maternal aunt were diagnosed with breast cancer. The patient indicates that she has not undergone genetic counseling. She has lost 24 pounds since her prior mammogram. TECHNIQUE: Bilateral CC and MLO low dose, full field digital mammographic images were obtained with tomosynthesis. COMPARISON: 09/05/2023, 08/28/2022, 10/14/2021, 08/26/2021, 08/17/2020, 07/03/2019, and 09/26/2017 FINDINGS: The breast tissue is almost entirely fatty in density. The fibroglandular pattern is stable. There are no suspicious masses, worrisome calcifications, nonsurgical areas of architectural distortion, or other secondary signs of malignancy. us Ronald Roca MD IMG MAMMOGRAPHY ORDERABLE S Final Result * DEXA BONE DENSITY AXIAL (11/26/2013 12:50 PM EST) Anatomical Region Laterality Modality Wrist, Hip, L-spine N/A Radiographic Imaging 11/26/2013 12:5 0 PM EST Narrative 11/26/2013 3:31 PM EST DUAL-ENERGY X-RAY ABSORPTIOMETRY (DXA) INDICATION: 68-year-old female for bone mineral densitometry calcium, vitamin D, and Evista therapy. COMPARISON: 02/05/12 PROCEDURE: A DXA scan was performed using a [employer] densitometer. The lumbar spine L1-L4 was evaluated as well as the both total hips The T-score compares the patient's bone mineral density with the peak bone mass of young normal patients. According to criteria established by the World Health Organization, patients with T-scores between 1.0 and 2.5 standard deviations BELOW the mean are osteopenic (low bone mass). Patients with T-scores EQUAL TO OR GREATER than 2.5 standard deviations below the mean are osteoporotic. The Z-score compares the patient bone mineral density with age and sex matched peers. According to the International Society for Clinical Densitometry's 2007 consensus conference: In women prior to menopause and men less than age 50, Z-scores, not T-scores are preferred. A Z-score of -2.0 or lower is defined as below the expected range for age and a Z-score above -2.0 is within the expected range for age. The WHO diagnostic criteria may be applied in women in the menopausal transition. Osteoporosis cannot be diagosed in men under age 50 on the basis of BMD alone. TECHNICAL QUALITY: The quality of the exam is good RESULTS: Lumber Spine: The BMD measured in the L1-L4 region is 0.950 g/cm2. The average T-score is -1.9 The Z-score is -1.1 Total Hip: The BMD measured at the left total proximal femur is 0.765 g/cm2. The T-score is -1.9 The Z-score is -1.2 Femoral Neck: The BMD measured at the left femoral neck is 0.695 g/cm2. The T-score is -2.5. The Z-score is -1.5 Total Hip: The BMD measured at the right total proximal femur is 0.764 g/cm2. The T-score is -1.9. The Z-score is -1.2 Femoral Neck: The BMD measured at the right femoral neck is 0.743 g/cm2. The T-score is -2.1 The Z-score is -1.1. IMPRESSION- Osteopenia in both hips. Osteopenia in the lumbar spine All the treatment decisions require clinical judgment and consideration of individual patient factors, including patient preferences, co-morbidities, previous drug use, risk factors not captured in the FRAX model (frailty, falls, vitamin D deficiency, increased bone turnover, interval significant decline in bone density) and possible under or over estimation of fracture risk by FRAX. Approaches to reduce osteoporosis related fracture risk include optimizing calcium and vitamin D status, appropriate weight bearing exercises and fall-prevention measurements. The National Osteoporosis Foundation recommends (http://www.nof.org/hcp/practice/pzqmxkqp-hzc-ufnussct-guidelines/clinic ians-guide) that FDA-approved medical therapies be considered in postmenopaual women and men aged equal or greater than 50 years with : a) hip or vertebral (clinical or morphometric) fracture; b) T-score of -2.5 or less at the spine or hip; c) Ten-year fracture probablity by FRAX of greater than 3% for hip fracture of greater than 20% for major osteoporotic fracture. Secondary causes of bone loss should be evaluated if clinically indicated since the etiology of low BMD cannot be determined by BMD measurement alone. FOLLOWUP: Consider repeating the study in 2-3 years to reassess the patient's status or sooner if there is some new clinical indication. INTERVAL CHANGE: Bone mineral density the lumbar spine has worsened by 4 percentage points. The bone mineral density in the left hip is improved by 2.8 percentage points. The bone mineral density in the right is stable.. At this facility, the least signifcant change in the BMD at the lumbar spine with 95% confidence is 0.659565 gm/cm2 and and 0.718797 g/cm2 at the left hip. [place] Vessel Pilot- MECHE FULTON Reading Radiologist- MECHE FULTON Releasing Radiologist- MECHE FULTON Released Date Time- 11/26/13 1532 Edwin Santos MD Annmarie DXA ORDERABLES Final Re sult from Last 3 Months or Most Recently Relevant to Health Maintenance Insurance MEDICARE A & B MEDICAID [place] Advance Directives * CPR (Attempt to Resuscitate) (Latest Code Status on File) Date Activated Date Inactivated Comments 05/01/2020 9:30 AM 05/03/2020 12:34 PM Question Answer Comments Code Status (Patient has no pulse and is not breathing): CPR (Attempt to Resuscitate) Medical Interventions (Patie nt has pulse or is breathing): Full Level Of Support Discussed With: Patient Care Teams Crepe Maker Relationship Specialty Start Date End Date Ronald Roca MD [address] [place] [facility] [address] [facility] [address] [place] [address] PCP - General 08/31/15
--- OUTSIDE RECORDS SUMMARY | 2025-06-03 13:29 | XMS_ITS | Clinical Summary ---
Author Organization [facility] Address [address] [place] [address] Care Team Providers Care Agile Coach Name Role Phone Ronald Roca MD Primary Care Provider [phone] Allergies Active Allergy Reactions Criticality Noted Date Comments Cephalexin Hives,Itching,Rash Medium 03/18/2015 Diphenhydramine Rash Low 05/01/2020 Morphine Itching Low 02/24/2019 Phenobarbital Hives,Itching Medium 03/18/2015 Tetracyclines Hives Low 07/07/2016 Medications * This document contains information received from the source organization and may not represent a complete record from that organization. Omeprazole Magnesium 20 mg Oral Capsule, Delayed Release(E.C.) TAKE 1 CAPSULE BY MOUTH ONCE DAILY 1 9 Active cyanocobalamin, vitamin B-12, 1,000 mcg/mL Inj Kit 1 Each every 30 days. Active Lacto.acidophil us-Bif.animalis 32 billion cell Oral CapsuleIndicati ons:Diarrhea, unspecified type,Dyspepsia, Polyp of colon, unspecified part of colon, unspecified type,Generalize d abdominal pain Take 1 Capsule by mouth daily. Active BIOTIN ORAL Take 5,000 mcg by mouth daily. Active ALPRAZolam (XANAX) 0.5 mg Oral Tablet Take 0.5 mg by mouth 3 times daily. 3 Active CREON 36,000-114,000- 180,000 unit Oral Capsule, Delayed Release(E.C.) TAKE 2 CAPSULES BY MOUTH THREE TIMES DAILY AND 1 WITH SNACKS 4 Active calcium carbonate/vitam in D3 (VITAMIN D-3 ORAL) Take 125 mcg by mouth daily. 4 Active cyanocobalamin, vitamin B-12, (VITAMIN B-12 ORAL) Take 1,000 mcg by mouth daily. Active Denosumab 60 mg/mL SubQ Syringe Subcutaneous (Inject under the skin) 60 mg Every 6 Months. Active lisinopriL-hydr ochlorothiazide (PRINZIDE;ZESTO RETIC) 20-12.5 mg Oral Tablet Take 2 Tablets by mouth daily. 180 Tablet 3 4 Active roflumilast 0.3 % Top CreamIndication s:Psoriasis Apply 1 Dose topically daily. 60 g 2 4 Active propranoloL (INDERAL) 20 mg Oral Tablet Take 1 tablet by mouth once daily 90 Tablet 4 Active clobetasoL (TEMOVATE) 0.05 % Top OintmentIndicat ions:Psoriasis Apply topically to affected skin on right lower leg twice daily for 2 weeks on, stop for 1 week, repeat as needed. Avoid use on face, groin, armpits. 60 g 1 4 Active Active Problems Problem Noted Date Diagnosed Date Other nonrheumatic [...] contraction) 07/10/2019 Overview (06/23/2024): January 2019 - [facility] 7500 PACs January 2019 - [facility] 7500 PACs S/P total knee arthroplasty 05/04/2017 Osteoarthritis of both knees 03/12/2017 Osteopenia 12/11/2016 Palpitations 03/18/2015 Resolved Problems Problem Noted Date Diagnosed Date Resolved Date Pure hypercholesterolemia 07/10/2019 Encounters Date Type Department Care Team Description 04/09/2025 Telephone [facility] [address] [place] [address] Dio Wilks MD Cardiology Clearance 04/03/[address] [facility] [address] [place] [address] Jayla Rosa MA Referral 04/02/[address] [address] Ruthie Vasquez, Clerical Staff Other from Last 3 Months Immunizations Immunization Administration Dates Next Due Influenza High Dose 08/18/2015 Influenza Seasonal Injectable 08/18/2010 ,08/19/2009,08/19/2008,09/05 Influenza Seasonal Injectable PF 08/17/2011 Pneumococcal Conjugate Vacci ne 13 Valent 10/07/2015 Pneumococcal Polysaccharide 23 Valent 02/05/2019 Td (Adult), Absorbed 01/01/1997 Tdap 03/26/2018 Medical History Medical History Date Comments Essential hypertension 07/10/2019 Anxiety 07/10/2019 Pure hypercholesterolemia 07/10/2019 Social History Tobacco Use Types Packs/Day Years [...] on file Sexual Orientation Not on file Obstetrics History Last Filed Vital Signs Vital Sign Reading Time Taken Comments Blood Pressure 147/65 06/23/2024 6:24 PM EDT Pulse 69 06/23/2024 7:48 PM EDT Temperature 36.7 C (98 F) 06/23/2024 4:44 PM EDT Respiratory Rate 17 06/23/2024 7:48 PM EDT Oxygen Saturation 99% 06/23/2024 7:48 PM EDT Inhaled Oxygen Concentration - - Weight 82.6 kg (182 lb) 09/29/2024 1:49 PM EST Height 167.6 cm (5' 6 ) 09/29/2024 1:49 PM EST Body Mass Index 29.38 09/29/2024 1:49 PM EST Plan of Treatment Upcoming Encounters Date Type Department Care Team (Late st Contact Info) Description 08/06/2025 1:45 PM EDT Office Visit [facility] [address] [address] Dio Wilks MD [address] [place] [address], [place] [address] Health Maintenance Due Date Last Done Comments Wellness Exam Medicare 1948 Hepatitis C Screening 1963 Zoster (1 of 2) 1997 RSV or 60+ (1 - 1-dose 75+ series) 2022 COVID-19 Vaccine ( season) 2024 11/02/2021, 01/05/2021, 12/08/2020 Influenza Vaccine (#1) 2025 5, 08/17/2011, 08/18/2010, Additional history exists DTaP/TDaP/Td (2 - Td or Tdap) 03/26/2028 03/26/2018, 01/01/1997 Bone Density Screening Completed 11/26/2013 Pneumococcal Vaccine 50+ Completed 02/05/2019, 09/28 Colon Cancer Screening Discontinued Colonoscopy Discontinued 03/01/2022 Cologuard Discontinued FIT Discontinued Hepatitis B Vaccine Aged Out No longe r eligible based on patient's age to complete this topic Meningococcal B Vaccine Aged Out No l onger eligible based on patient's age to complete this topic Sigmoidoscopy Discontinued Virtual Colonography Discontinued Goals Goal Patient Goal Type Associated Problems Recent Progress Patient-Stated? Author Alleviate symptoms of generalized anxiety Care Plan Generalized Anxiety No Orestes Simms MD Procedures Procedure Name Priority Date/Time Associated Diagnosis Comments [facility]ED EGD-COLONOSCOPY Routine 03/01/2022 3:00 PM EDT Diarrhea, unspecified type Dyspepsia Polyp of colon, unspecified part of colon, unspecified type Generalized abdominal pain from Last 3 Months or Most Recently Relevant to Health Maintenance Results * [facility]ED EGD-COLONOSCOPY (03/01/2022 3:00 PM EDT) 03/01/2022 3:00 PM EDT Impressions [facility] - 03/01/2022 2:24 PM EDT Plan: This section is an excerpt of the full report. us Ronnie Sapp MD GI PROCEDURE ORDERABLE S Final Result [facility] [address] [id number] from Last 3 Months or Most Recently Relevant to Health Maintenance Additional Health Concerns Active Problems Noted Date Diagnosed Date Generalized Anxiety 08/22/2023 Insurance MEDICARE [place] PART A AND B MEDICAID [place] Member Subscriber Plan / Payer (Ef fective 2019-Present) Name:Radha Lee Relation to Subscriber:Self Name:Radha Lee Payer ID:Not on file Group ID:Not on file Type:Not on file Address: [address] [place] [id number] [place] [address] [place] [address] [place] Care Teams Agile Coach Relationship Specialty Start Date End Date Ronald Roca MD [address] [facility] [address] [place] [address] PCP - General Family Medicine 10/29/1969
--- OUTSIDE RECORDS SUMMARY | 2025-06-03 13:29 | XMS_ITS | Encounter Summary ---
Author Organization [facility] Address [address] [place] [address] Care Team Providers Care Machine Leather Trimmer Name Role Phone Ronald Roca MD Primary Care Provider [phone] Reason for Visit * Reason Onset Date Comments HCN - Patient Message 04/06/2025 Encounter Details Date Type Department Care Team (Late st Contact Info) Description 04/06/2025 Telephone Medical Office Building [facility] [address] [facility], [address] [place] [address] Jens Carbone MD [address] [place] [address] HCN - Patient Message Social [...] Telephone Encounter - Nilsa Kitchen RN - 04/09/2025 8:25 AM EDT Patient scheduled for 04/21/25. * Telephone Encounter - Maranda Katz - 04/06/2025 12:09 PM EDT Clinical Concern/Question Reason for Call: Raf patient calling regarding beginning the process for being scheduled for surgery. She states she was last told by Raf to speak with his nurses to start this process. Please advise Best contact number: [phone] (mobile) Optimal time of day to reach caller: ANYTIME Additional comments/information from caller: None Note: Please do not reply to this message. Follow-up communication and further actions as a result of this message need to be communicated with the patient directly, if the patient is not active onMyChart. If the patient is active on MyChart, they will receive notification of the communication/outcome via Carmageddonhart. documented in this encounter Plan of Treatment Upcoming Encounters Date Type Department Care Team ([facility] st Contact Info) Description 06/08/2025 3:20 PM EDT Office Visit Medical Office Building [facility] [address] [facility], [address] [place] [address] Jens Carbone MD [address] [place] [address] 08/24/2025 3:00 PM EDT Ovarian Cancer Screening [facility] Gynecology [address] [place] [address] documented as of this encounter Goals Goal [...] documented as of this encounter Care Teams Machine Leather Trimmer Relationship Specialty Start Date End Date Ronald Roca MD [address] [place] [address] PCP - General 03/11/21 documented as of this encounter
--- OUTSIDE RECORDS SUMMARY | 2025-06-03 13:29 | XMS_ITS | Encounter Summary ---
Author Organization [facility] Address [address] [place] [address] Care Team Providers Care Torch Heater Name Role Phone Ronald Roca MD Primary Care Provider [phone] Encounter Details Date Type Department Care Team (Latest Contact Info) Description 04/21/2025 Travel Social History Tobacco Use Types Packs/Day [...] No 04/21/2025 8:23 PM EDT Fadi Hernandez ea RN 6. Suicidal Behavior (Lifetime) No 8:23 PM MOUNAT Bin Hernandez RN documented as of this encounter Plan of Treatment Upcoming Encounters Date Type Department Care Team ( st Contact Info) Description 06/08/2025 3:20 PM EDT Office Visit Medical Office Building [facility] [address] [facility], [address] [place] [address] Jens Carbone MD [address] [place] [address] 08/24/2025 3:00 PM EDT Ovarian Cancer Screening [facility] Gynecology [address] [place] [address] documented as of this encounter Goals Goal [...] documented as of this encounter Care Teams Torch Heater Relationship Specialty Start Date End Date Ronald Roca MD [address] [place] [address] PCP - General 03/11/21 documented as of this encounter
[2025-06-03] MEDS: DENOSUMAB 60 MG/ML SYRINGE SUBCUT (13:41)
[2025-06-03 13:50] VITALS: BP 164/71; PULSE 92; RESP 18; O2SAT 98
== END 2025-06-03 13:50 | disposition home or self-care (01) ==
LOC: INF 13:25
PROVIDERS: PCP Family Medicine; Visit Provider Family Medicine
DX: Z01.89 Encounter for other specified special examinations (principal)
CPT/HCPCS: 96372; J0897